=== PATIENT | female | born 1935 | race Hispanic/Latino ===

== ENCOUNTER 2017-06-20 12:29 | Inpatient (IN) | payer OTHER, BC ==
[2017-06-08 09:34] VITALS: BMI 22.8
[2017-06-20] MEDS: Levalbuterol 0.63 MG/3 ML Inhal Soln UD INH SCH (16:15)
[2017-06-20 16:59] VITALS: RESP 20
--- NOTE | 2017-06-20 20:02 | CP.PCM.HP ---
History of Present Illness - History of Present Illness History of Present Illness: 82 yo s/p R hip fx admitted to TCU Present on Admission - Present on Admission Any Indicators Present on Admission: No Past Patient History - Past Medical History & Family History Past Medical History?: Yes - Past Social History Smoking Status: Current Some Days Smoker - CARDIAC Hx Hypertension: Yes - PULMONARY Hx Respiratory Disorders: Yes Hx Chronic Obstructive Pulmonary Disease (COPD): Yes - NEUROLOGICAL Hx Neurological Disorder: No - HEENT Hx HEENT Problems: Yes Hx Glaucoma: Yes Hx Macular Degeneration: Yes - RENAL Hx Chronic Kidney Disease: No - ENDOCRINE/METABOLIC Hx Endocrine Disorders: No - HEMATOLOGICAL/ONCOLOGICAL Hx Blood Disorders: No Hx AIDS: No Hx Human Immunodeficiency Virus (HIV): No - INTEGUMENTARY Hx Dermatological Problems: No - MUSCULOSKELETAL/RHEUMATOLOGICAL Hx Falls: Yes - GASTROINTESTINAL Hx Gastrointestinal Disorders: No - GENITOURINARY/GYNECOLOGICAL Hx Genitourinary Disorders: No - PSYCHIATRIC Hx Psychophysiologic Disorder: No Hx Substance Use: No - SURGICAL HISTORY Hx Surgeries: Yes Hx Eye Surgery: Yes Other/Comment: skin graft to legs, left eye surgery s/p Rt THR - ANESTHESIA Hx Anesthesia: Yes Hx Anesthesia Reactions: No Meds Allergies/Adverse Reactions: Allergies Allergy/AdvReac Type Severity Reaction Status Date / Time Penicillins Allergy SWELLING Verified 06/20/17 14:25 Physical Exam - Respiratory Exam Respiratory Exam: NORMAL BREATHING PATTERN - Cardiovascular Exam Cardiovascular Exam: REGULAR RHYTHM - GI/Abdominal Exam GI & Abdominal Exam: Normal Bowel Sounds Results - Vital Signs Recent Vital Signs: Last Vital Signs Temp 97.1 F L 06/20/17 16:58 Pulse 78 06/20/17 16:58 Resp 20 06/20/17 16:58 BP 122/59 L 06/20/17 16:58 Pulse Ox 92 L 06/20/17 16:58 Assessment & Plan - Assessment and Plan (Free Text) Assessment: S/P R Hip THR POD #7 Ortho OOB PT TCU S/P NSTEMI HTN cadiomyopathy Cardiology Hypoxia?? transient COPD Pulmonary - Date & Time Date: 06/20/17 Time: 22:22
[2017-06-20] MEDS: Latanoprost 0.005% Opht SOUTION OD SCH (21:17)
[2017-06-21] MEDS: Levalbuterol 0.63 MG/3 ML Inhal Soln UD INH SCH ×4 (00:52→23:51)
--- NOTE | 2017-06-21 07:30 | CP.PCM.PN ---
Subjective - Date & Time of Evaluation Date of Evaluation: 06/21/17 Time of Evaluation: 07:30 Objective - Vital Signs/Intake and Output Vital Signs (last 24 hours): Temp Pulse Resp BP Pulse Ox 97.6 F 86 20 120/63 95 06/20/17 20:28 06/20/17 21:16 06/20/17 20:28 06/20/17 21:16 06/20/17 20:28 - Medications Medications: Current Medications Acetaminophen (Tylenol 325mg Tab) 650 mg PO Q6 PRN PRN Reason: Pain, moderate (4-7) Aspirin (Ecotrin) 81 mg PO DAILY [facility] Atorvastatin Calcium (Lipitor) 20 mg PO DAILY [facility] Carvedilol (Coreg) 6.25 mg PO Q12 [facility] Last Admin: 06/20/17 21:16 Dose: 6.25 mg Enoxaparin Sodium (Lovenox) 40 mg SC DAILY [facility] PRN Reason: Protocol Latanoprost (Xalatan Opht) 1 drop OD HS [facility] Last Admin: 06/20/17 21:17 Dose: 1 drop Levalbuterol HCl (Xopenex) 0.63 mg INH RQ8 [facility] Last Admin: 06/21/17 07:28 Dose: 0.63 mg Sennosides (Senokot Tab) 17.2 mg PO HS [facility] Last Admin: 06/20/17 21:16 Dose: 17.2 mg
[2017-06-21] MEDS: Enoxaparin 40 mg Syringe SC SCH (09:31)
--- NOTE | 2017-06-21 11:52 | CP.PCM.PN ---
Subjective - Date & Time of Evaluation Date of Evaluation: 06/21/17 Time of Evaluation: 11:50 - Subjective Subjective: Patient states she feels better today. Again encouraged participation in PT. Pain controlled, denies CP/SOB/dizzziness. Objective - Vital Signs/Intake and Output Vital Signs (last 24 hours): Temp Pulse Resp BP Pulse Ox 97.2 F L 73 20 106/54 L 98 06/21/17 08:10 06/21/17 09:31 06/21/17 08:10 06/21/17 09:31 06/21/17 08:10 - Medications Medications: Current Medications Acetaminophen (Tylenol 325mg Tab) 650 mg PO Q6 PRN PRN Reason: Pain, moderate (4-7) Aspirin (Ecotrin) 81 mg PO DAILY [facility] Last Admin: 06/21/17 09:31 Dose: 81 mg Atorvastatin Calcium (Lipitor) 20 mg PO DAILY [facility] Last Admin: 06/21/17 09:31 Dose: 20 mg Carvedilol (Coreg) 6.25 mg PO Q12 [facility] Last Admin: 06/21/17 09:31 Dose: 6.25 mg Enoxaparin Sodium (Lovenox) 40 mg SC DAILY [facility] PRN Reason: Protocol Last Admin: 06/21/17 09:31 Dose: 40 mg Latanoprost (Xalatan Opht) 1 drop OD HS [facility] Last Admin: 06/20/17 21:17 Dose: 1 drop Levalbuterol HCl (Xopenex) 0.63 mg INH RQ8 [facility] Last Admin: 06/21/17 07:28 Dose: 0.63 mg Sennosides (Senokot Tab) 17.2 mg PO HS [facility] Last Admin: 06/20/17 21:16 Dose: 17.2 mg - Extremities Exam Additional comments: Right hip and left hip wounds clean, dry, intact. +ROM ankle/toes, sensation intact, +DP/PT pulses, calves soft NT neg homans Assessment and Plan (1) Displaced fracture of right femoral neck Assessment & Plan: POD# 7 s/p right THR for fx -PT/OT -VTE proph -ortho stable -d/w Dr. Gil, agrees with above Status: Acute
--- NOTE | 2017-06-21 13:17 | CP.PCM.CON ---
History of Present Illness - History of Present Illness History of Present Illness: Dr Quintanilla PMR consultation on Yanira Gomez, born 1935, who has been admitted to the TCU following a right hip fracture and THR by Dr Gil who has documented FWB for Yanira. She typically ambulated with her rollator Review of Systems - Constitutional Constitutional: absent: Anorexia, Chills - EENT Eyes: absent: Discharge Ears: absent: Disequilibrium Nose/Mouth/Throat: absent: Nasal Congestion - Cardiovascular Cardiovascular: absent: Chest Pain - Respiratory Respiratory: absent: Dyspnea, Hemoptysis - Gastrointestinal Gastrointestinal: absent: Abdominal Pain, Belching - Integumentary Integumentary: Other (right hip incision). absent: Bleeding Lesions - Neurological Neurological: absent: Abnormal Movements Past Patient History - Past Medical History & Family History Past Medical History?: Yes - Past Social History Smoking Status: Current Some Days Smoker Drugs: Denies Home Situation {Lives}: Alone (ground floor) - CARDIAC Hx Hypertension: Yes - PULMONARY Hx Respiratory Disorders: Yes Hx Chronic Obstructive Pulmonary Disease (COPD): Yes - NEUROLOGICAL Hx Neurological Disorder: No - HEENT Hx HEENT Problems: Yes Hx Glaucoma: Yes Hx Macular Degeneration: Yes - RENAL Hx Chronic Kidney Disease: No - ENDOCRINE/METABOLIC Hx Endocrine Disorders: No - HEMATOLOGICAL/ONCOLOGICAL Hx Blood Disorders: No Hx AIDS: No Hx Human Immunodeficiency Virus (HIV): No - INTEGUMENTARY Hx Dermatological Problems: No - MUSCULOSKELETAL/RHEUMATOLOGICAL Hx Falls: Yes - GASTROINTESTINAL Hx Gastrointestinal Disorders: No - GENITOURINARY/GYNECOLOGICAL Hx Genitourinary Disorders: No - PSYCHIATRIC Hx Psychophysiologic Disorder: No Hx Substance Use: No - SURGICAL HISTORY Hx Surgeries: Yes Hx Eye Surgery: Yes Other/Comment: skin graft to legs, left eye surgery s/p Rt THR - ANESTHESIA Hx Anesthesia: Yes Hx Anesthesia Reactions: No Meds Allergies/Adverse Reactions: Allergies Allergy/AdvReac Type Severity Reaction Status Date / Time Penicillins Allergy SWELLING Verified 06/20/17 14:25 - Medications Medications: Current Medications Acetaminophen (Tylenol 325mg Tab) 650 mg PO Q6 PRN PRN Reason: Pain, moderate (4-7) Aspirin (Ecotrin) 81 mg PO DAILY [facility] Last Admin: 06/21/17 09:31 Dose: 81 mg Atorvastatin Calcium (Lipitor) 20 mg PO DAILY [facility] Last Admin: 06/21/17 09:31 Dose: 20 mg Carvedilol (Coreg) 6.25 mg PO Q12 [facility] Last Admin: 06/21/17 09:31 Dose: 6.25 mg Enoxaparin Sodium (Lovenox) 40 mg SC DAILY [facility] PRN Reason: Protocol Last Admin: 06/21/17 09:31 Dose: 40 mg Latanoprost (Xalatan Opht) 1 drop OD HS [facility] Last Admin: 06/20/17 21:17 Dose: 1 drop Levalbuterol HCl (Xopenex) 0.63 mg INH RQ8 [facility] Last Admin: 06/21/17 07:28 Dose: 0.63 mg Sennosides (Senokot Tab) 17.2 mg PO HS [facility] Last Admin: 06/20/17 21:16 Dose: 17.2 mg Physical Exam - Constitutional Appears: Non-toxic - Head Exam Head Exam: ATRAUMATIC, NORMAL INSPECTION, NORMOCEPHALIC (poor dentation) - Eye Exam Eye Exam: EOMI - ENT Exam ENT Exam: Mucous Membranes Moist - Respiratory Exam Respiratory Exam: NORMAL BREATHING PATTERN - Cardiovascular Exam Cardiovascular Exam: REGULAR RHYTHM - GI/Abdominal Exam GI & Abdominal Exam: Normal Bowel Sounds - Extremities Exam Extremities exam: Positive for: calf tenderness (right side with some swelling. Incision CDI) - Neurological Exam Neurological exam: Alert, CN II-XII Intact, Oriented x3 - Psychiatric Exam Psychiatric exam: Normal Affect, Normal Mood Results - Vital Signs Recent Vital Signs: Last Vital Signs Temp 97.2 F L 06/21/17 08:10 Pulse 73 06/21/17 09:31 Resp 20 06/21/17 08:10 BP 106/54 L 06/21/17 09:31 Pulse Ox 98 06/21/17 08:10 Assessment & Plan - Assessment and Plan (Free Text) Assessment: right THR PT/OT to continue to help increase functional independence Pain: controlled Vascular: some right calf swelling and mild tenderness will get a doppler GI: No evidence of constipation or diarrhea Patient continues to be an excellent TCU rehabilitation candidate and will have continued focused PT, OT and recreational therapy to help facilitate a safe and appropriate d/c plan
--- NOTE | 2017-06-21 13:49 | CP.PCM.CON ---
History of Present Illness - History of Present Illness History of Present Illness: THE PATIENT IS AN 82 YEAR OLD FEMALE ADMITTED [facility] FOLLOWING A FALL WITH A RIGHT HIP FRACTURE THAT WAS SURGICALLY REPAIRED ONE WEEK AGO. 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 SHE HAD ONLY MILDLY ELEVATED TROPONINS ON HER [facility] ADMISSION 10 DAYS AGO THAT I BELIEVE WERE MOST PROBABLY FROM A LOW FLUID STATUS WITH HEMOCONCENTRATION AND NOT FROM CARDIAC INJURY. SHE IS CHEST PAIN FREE AND COMFORTABLE AT THE PRESENT TIME. Past Patient History - Past Medical History & Family History Past Medical History?: Yes - Past Social History Smoking Status: Current Some Days Smoker Drugs: Denies Home Situation {Lives}: Alone (ground floor) - CARDIAC Hx Hypertension: Yes - PULMONARY Hx Respiratory Disorders: Yes Hx Chronic Obstructive Pulmonary Disease (COPD): Yes - NEUROLOGICAL Hx Neurological Disorder: No - HEENT Hx HEENT Problems: Yes Hx Glaucoma: Yes Hx Macular Degeneration: Yes - RENAL Hx Chronic Kidney Disease: No - ENDOCRINE/METABOLIC Hx Endocrine Disorders: No - HEMATOLOGICAL/ONCOLOGICAL Hx Blood Disorders: No Hx AIDS: No Hx Human Immunodeficiency Virus (HIV): No - INTEGUMENTARY Hx Dermatological Problems: No - MUSCULOSKELETAL/RHEUMATOLOGICAL Hx Falls: Yes - GASTROINTESTINAL Hx Gastrointestinal Disorders: No - GENITOURINARY/GYNECOLOGICAL Hx Genitourinary Disorders: No - PSYCHIATRIC Hx Psychophysiologic Disorder: No Hx Substance Use: No - SURGICAL HISTORY Hx Surgeries: Yes Hx Eye Surgery: Yes Other/Comment: skin graft to legs, left eye surgery s/p Rt THR - ANESTHESIA Hx Anesthesia: Yes Hx Anesthesia Reactions: No Meds Allergies/Adverse Reactions: Allergies Allergy/AdvReac Type Severity Reaction Status Date / Time Penicillins Allergy SWELLING Verified 06/20/17 14:25 - Medications Medications: Current Medications Acetaminophen (Tylenol 325mg Tab) 650 mg PO Q6 PRN PRN Reason: Pain, moderate (4-7) Aspirin (Ecotrin) 81 mg PO DAILY [facility] Last Admin: 06/21/17 09:31 Dose: 81 mg Atorvastatin Calcium (Lipitor) 20 mg PO DAILY [facility] Last Admin: 06/21/17 09:31 Dose: 20 mg Carvedilol (Coreg) 6.25 mg PO Q12 [facility] Last Admin: 06/21/17 09:31 Dose: 6.25 mg Enoxaparin Sodium (Lovenox) 40 mg SC DAILY [facility] PRN Reason: Protocol Last Admin: 06/21/17 09:31 Dose: 40 mg Latanoprost (Xalatan Opht) 1 drop OD HS [facility] Last Admin: 06/20/17 21:17 Dose: 1 drop Levalbuterol HCl (Xopenex) 0.63 mg INH RQ8 [facility] Last Admin: 06/21/17 07:28 Dose: 0.63 mg Sennosides (Senokot Tab) 17.2 mg PO HS [facility] Last Admin: 06/20/17 21:16 Dose: 17.2 mg Physical Exam - Respiratory Exam Respiratory Exam: Clear to Auscultation Bilateral - Cardiovascular Exam Cardiovascular Exam: REGULAR RHYTHM, +S1, +S2 Results - Vital Signs Recent Vital Signs: Last Vital Signs Temp 97.2 F L 06/21/17 08:10 Pulse 73 06/21/17 09:31 Resp 20 06/21/17 08:10 BP 106/54 L 06/21/17 09:31 Pulse Ox 98 06/21/17 08:10 - Labs Result Diagrams: 06/22/17 05:15 06/22/17 05:15 Assessment & Plan - Assessment and Plan (Free Text) Assessment: RIGHT HIP FRACTURE WITH SURGICAL REPAIR HYPERTENSION CARDIOMYOPATHY COPD Plan: CONTINUE ASPIRIN, CARVEDILOL, ATORVASTATIN AND LOVENOX
--- NOTE | 2017-06-21 18:30 | CP.PCM.PN ---
Subjective - Date & Time of Evaluation Date of Evaluation: 06/21/17 Time of Evaluation: 22:22 - Subjective Subjective: Refusing to do PT??? Objective - Vital Signs/Intake and Output Vital Signs (last 24 hours): Temp Pulse Resp BP Pulse Ox 97.0 F L 79 20 117/63 98 06/21/17 16:45 06/21/17 16:45 06/21/17 16:45 06/21/17 16:45 06/21/17 16:45 - Medications Medications: Current Medications Acetaminophen (Tylenol 325mg Tab) 650 mg PO Q6 PRN PRN Reason: Pain, moderate (4-7) Aspirin (Ecotrin) 81 mg PO DAILY [facility] Last Admin: 06/21/17 09:31 Dose: 81 mg Atorvastatin Calcium (Lipitor) 20 mg PO DAILY [facility] Last Admin: 06/21/17 09:31 Dose: 20 mg Carvedilol (Coreg) 6.25 mg PO Q12 [facility] Last Admin: 06/21/17 09:31 Dose: 6.25 mg Enoxaparin Sodium (Lovenox) 40 mg SC DAILY [facility] PRN Reason: Protocol Last Admin: 06/21/17 09:31 Dose: 40 mg Latanoprost (Xalatan Opht) 1 drop OD HS [facility] Last Admin: 06/20/17 21:17 Dose: 1 drop Levalbuterol HCl (Xopenex) 0.63 mg INH RQ8 [facility] Last Admin: 06/21/17 15:30 Dose: 0.63 mg Sennosides (Senokot Tab) 17.2 mg PO HS [facility] Last Admin: 06/20/17 21:16 Dose: 17.2 mg - Respiratory Exam Respiratory Exam: NORMAL BREATHING PATTERN - Cardiovascular Exam Cardiovascular Exam: REGULAR RHYTHM - GI/Abdominal Exam GI & Abdominal Exam: Normal Bowel Sounds Assessment and Plan - Assessment and Plan (Free Text) Assessment: S/P R Hip THR POD #8 Ortho OOB refusing PT?? TCU S/P NSTEMI HTN cadiomyopathy Cardiology Hypoxia?? transient COPD Pulmonary
[2017-06-21] MEDS: Latanoprost 0.005% Opht SOUTION OD SCH (21:42)
[2017-06-22 06:39] LABS: HEMATOCRIT 27.4 % (34.0-47.0); MEAN CELL VOLUME 99.4 fl (81.0-99.0); MEAN CORPUSCULAR HGB CONC 33.2 g/dL (33.0-37.0); RED CELL DISTRIBUTION WIDTH 13.9 % (11.5-14.5); WHITE BLOOD COUNT 5.9 K/uL (4.8-10.8)
[2017-06-22 07:41] LABS: ALKALINE PHOSPHATASE 60 U/L (38-126); ALT/SGPT 35 U/L (9-52); AST/SGOT 28 U/L (14-36); BILIRUBIN,TOTAL 1.4 mg/dl (0.2-1.3); BLOOD UREA NITROGEN 29 mg/dl (7-17); CARBON DIOXIDE 32 mmol/L (22-30); CHLORIDE 102 mmol/L (98-107); GFR AFRICAN-AMERICAN > 60; GLUCOSE,RANDOM 93 mg/dL (65-105); POTASSIUM 4.4 MMOL/L (3.6-5.0); SODIUM 140 mmol/l (132-148); TOTAL PROTEIN 4.7 G/DL (6.3-8.2)
[2017-06-22] MEDS: Levalbuterol 0.63 MG/3 ML Inhal Soln UD INH SCH ×2 (07:55→15:21)
[2017-06-22] MEDS: Enoxaparin 40 mg Syringe SC SCH (09:09)
--- NOTE | 2017-06-22 13:21 | CP.PCM.PN ---
Subjective - Date & Time of Evaluation Date of Evaluation: 06/22/17 Time of Evaluation: 13:20 - Subjective Subjective: The patient is an 82-year-old female known to me from this hospitalization on the acute medical floor. She had fallen and sustained a hip fracture which resulted in a delayed repair/replacement. She had an episode of hypoxemia initially on admission and has a vague history of COPD. She is a former cigarette smoker who was also raised in a smoking household as a child. Both her parents were smokers and her father did have COPD. She denied any prior respiratory/pulmonary illness but CT scan of the lungs done on presentation did show characteristics consistent with emphysema. On examination her breath sounds were present bilaterally and equally diminished. No audible wheezing or bronchial breathing was heard and rare dry rales are heard in dependent lung zones posteriorly. Heart sounds remain distant and the rhythm is regular. She appears to be stable from a pulmonary standpoint at this juncture. Continue with the current aerosol therapy regimen. Objective - Vital Signs/Intake and Output Vital Signs (last 24 hours): Temp Pulse Resp BP Pulse Ox 96.4 F L 77 20 110/61 94 L 06/22/17 08:00 06/22/17 09:09 06/22/17 08:00 06/22/17 09:09 06/22/17 08:00 - Medications Medications: Current Medications Acetaminophen (Tylenol 325mg Tab) 650 mg PO Q6 PRN PRN Reason: Pain, moderate (4-7) Last Admin: 06/21/17 20:20 Dose: 650 mg Aspirin (Ecotrin) 81 mg PO DAILY [facility] Last Admin: 06/22/17 09:08 Dose: 81 mg Atorvastatin Calcium (Lipitor) 20 mg PO DAILY [facility] Last Admin: 06/22/17 09:09 Dose: 20 mg Carvedilol (Coreg) 6.25 mg PO Q12 [facility] Last Admin: 06/22/17 09:09 Dose: 6.25 mg Enoxaparin Sodium (Lovenox) 40 mg SC DAILY [facility] PRN Reason: Protocol Last Admin: 06/22/17 09:09 Dose: 40 mg Latanoprost (Xalatan Opht) 1 drop OD HS [facility] Last Admin: 06/21/17 21:42 Dose: 1 drop Levalbuterol HCl (Xopenex) 0.63 mg INH RQ8 [facility] Last Admin: 06/22/17 07:55 Dose: 0.63 mg Sennosides (Senokot Tab) 17.2 mg PO HS [facility] Last Admin: 06/21/17 21:45 Dose: Not Given - Labs Labs: 06/22/17 05:15 06/22/17 05:15
--- NOTE | 2017-06-22 20:14 | CP.PCM.PN ---
Subjective - Date & Time of Evaluation Date of Evaluation: 06/22/17 Time of Evaluation: 22:22 - Subjective Subjective: PT today Objective - Vital Signs/Intake and Output Vital Signs (last 24 hours): Temp Pulse Resp BP Pulse Ox 96.8 F L 82 20 119/58 L 92 L 06/22/17 19:41 06/22/17 19:41 06/22/17 19:41 06/22/17 19:41 06/22/17 19:41 - Medications Medications: Current Medications Acetaminophen (Tylenol 325mg Tab) 650 mg PO Q4 PRN PRN Reason: Pain, moderate (4-7) Aspirin (Ecotrin) 81 mg PO DAILY [facility] Last Admin: 06/22/17 09:08 Dose: 81 mg Atorvastatin Calcium (Lipitor) 20 mg PO DAILY [facility] Last Admin: 06/22/17 09:09 Dose: 20 mg Carvedilol (Coreg) 6.25 mg PO Q12 [facility] Last Admin: 06/22/17 09:09 Dose: 6.25 mg Enoxaparin Sodium (Lovenox) 40 mg SC DAILY [facility] PRN Reason: Protocol Last Admin: 06/22/17 09:09 Dose: 40 mg Latanoprost (Xalatan Opht) 1 drop OD HS [facility] Last Admin: 06/21/17 21:42 Dose: 1 drop Levalbuterol HCl (Xopenex) 0.63 mg INH RQ8 [facility] Last Admin: 06/22/17 15:21 Dose: 0.63 mg Magnesium Hydroxide (Milk Of Magnesia) 30 ml PO DAILY [facility] Sennosides (Senokot Tab) 17.2 mg PO HS [facility] Last Admin: 06/21/17 21:45 Dose: Not Given - Labs Labs: 06/22/17 05:15 06/22/17 05:15 - Respiratory Exam Respiratory Exam: NORMAL BREATHING PATTERN - Cardiovascular Exam Cardiovascular Exam: REGULAR RHYTHM - GI/Abdominal Exam GI & Abdominal Exam: Normal Bowel Sounds Assessment and Plan - Assessment and Plan (Free Text) Assessment: S/P R Hip THR POD #9 Ortho OOB PT TCU S/P NSTEMI HTN cadiomyopathy Cardiology Hypoxia?? transient COPD Pulmonary
[2017-06-22] MEDS: Latanoprost 0.005% Opht SOUTION OD SCH ×2 (20:58→21:01)
[2017-06-23] MEDS: Levalbuterol 0.63 MG/3 ML Inhal Soln UD INH SCH ×3 (00:07→15:07)
[2017-06-23] MEDS: Magnesium Hydroxide Susp 30 ml UD PO SCH (09:14)
[2017-06-23] MEDS: Enoxaparin 40 mg Syringe SC SCH (09:14)
--- NOTE | 2017-06-23 09:34 | CP.PCM.PN ---
Subjective - Date & Time of Evaluation Date of Evaluation: 06/23/17 Time of Evaluation: 08:15 - Subjective Subjective: NO NEW COMPLAINTS Objective - Vital Signs/Intake and Output Vital Signs (last 24 hours): Temp Pulse Resp BP Pulse Ox 95.7 F L 72 20 109/54 L 100 06/23/17 08:11 06/23/17 09:14 06/23/17 08:11 06/23/17 09:14 06/23/17 08:11 - Medications Medications: Current Medications Acetaminophen (Tylenol 325mg Tab) 650 mg PO Q4 PRN PRN Reason: Pain, moderate (4-7) Last Admin: 06/22/17 20:50 Dose: 650 mg Aspirin (Ecotrin) 81 mg PO DAILY [facility] Last Admin: 06/23/17 09:14 Dose: 81 mg Atorvastatin Calcium (Lipitor) 20 mg PO DAILY [facility] Last Admin: 06/23/17 09:15 Dose: 20 mg Carvedilol (Coreg) 6.25 mg PO Q12 [facility] Last Admin: 06/23/17 09:14 Dose: 6.25 mg Enoxaparin Sodium (Lovenox) 40 mg SC DAILY [facility] PRN Reason: Protocol Last Admin: 06/23/17 09:14 Dose: 40 mg Latanoprost (Xalatan Opht) 1 drop OD HS [facility] Last Admin: 06/22/17 21:01 Dose: 1 drop Levalbuterol HCl (Xopenex) 0.63 mg INH RQ8 [facility] Last Admin: 06/23/17 07:08 Dose: 0.63 mg Magnesium Hydroxide (Milk Of Magnesia) 30 ml PO DAILY [facility] Last Admin: 06/23/17 09:14 Dose: 30 ml Sennosides (Senokot Tab) 17.2 mg PO HS [facility] Last Admin: 06/22/17 21:00 Dose: Not Given - Labs Labs: 06/22/17 05:15 06/22/17 05:15 - Respiratory Exam Respiratory Exam: Clear to Ausculation Bilateral - Cardiovascular Exam Cardiovascular Exam: REGULAR RHYTHM, +S1, +S2 Assessment and Plan - Assessment and Plan (Free Text) Assessment: S/P RIGHT THR FOR A FALL WITH FRACTURE HYPERTENSION HYPERLIPIDEMIA Plan: CONTINUE CARVEDILOL, ASPIRIN, ATORVASTATIN AND LOVENOX CONTINUE PHYSICAL THERAPY
--- NOTE | 2017-06-23 12:12 | CP.PCM.PN ---
Subjective - Date & Time of Evaluation Date of Evaluation: 06/23/17 Time of Evaluation: 12:12 - Subjective Subjective: The patient was seen on rounds in the transitional care unit. She is lying in bed and she appears to be comfortable. She offers no specific complaints. She has not been participating in physical therapy because of fatigue. Physical examination is benign. Breath sounds are present bilaterally without any audible wheezing or rales. Occasional dependent rhonchi. No cyanosis. She remains afebrile and her other vital signs are stable as well. Objective - Vital Signs/Intake and Output Vital Signs (last 24 hours): Temp Pulse Resp BP Pulse Ox 95.7 F L 72 20 109/54 L 100 06/23/17 10:00 06/23/17 10:00 06/23/17 10:00 06/23/17 10:00 06/23/17 10:00 - Medications Medications: Current Medications Acetaminophen (Tylenol 325mg Tab) 650 mg PO Q4 PRN PRN Reason: Pain, moderate (4-7) Last Admin: 06/22/17 20:50 Dose: 650 mg Aspirin (Ecotrin) 81 mg PO DAILY [facility] Last Admin: 06/23/17 09:14 Dose: 81 mg Atorvastatin Calcium (Lipitor) 20 mg PO DAILY [facility] Last Admin: 06/23/17 09:15 Dose: 20 mg Carvedilol (Coreg) 6.25 mg PO Q12 [facility] Last Admin: 06/23/17 09:14 Dose: 6.25 mg Enoxaparin Sodium (Lovenox) 40 mg SC DAILY [facility] PRN Reason: Protocol Last Admin: 06/23/17 09:14 Dose: 40 mg Latanoprost (Xalatan Opht) 1 drop OD HS [facility] Last Admin: 06/22/17 21:01 Dose: 1 drop Levalbuterol HCl (Xopenex) 0.63 mg INH RQ8 [facility] Last Admin: 06/23/17 07:08 Dose: 0.63 mg Magnesium Hydroxide (Milk Of Magnesia) 30 ml PO DAILY [facility] Last Admin: 06/23/17 09:14 Dose: 30 ml Sennosides (Senokot Tab) 17.2 mg PO HS [facility] Last Admin: 06/22/17 21:00 Dose: Not Given - Labs Labs: 06/22/17 05:15 06/22/17 05:15
--- NOTE | 2017-06-23 15:32 | CP.PCM.PN ---
Subjective - Date & Time of Evaluation Date of Evaluation: 06/23/17 Time of Evaluation: 15:30 - Subjective Subjective: Patient seen in room She again did not participate in therapies I informed her that after three days there can be a discharge home if she is not doing anything She did not really get it, but I reiterated this to her firmly as she has been putting off PT/OT after 30 minutes of staff trying to coax her and the day prior they came 5 times the thought of going home was not good to her so hopefully she will respond discussed with staff Objective - Vital Signs/Intake and Output Vital Signs (last 24 hours): Temp Pulse Resp BP Pulse Ox 95.7 F L 72 20 109/54 L 100 06/23/17 10:00 06/23/17 10:00 06/23/17 10:00 06/23/17 10:00 06/23/17 10:00 - Medications Medications: Current Medications Acetaminophen (Tylenol 325mg Tab) 650 mg PO Q4 PRN PRN Reason: Pain, moderate (4-7) Last Admin: 06/22/17 20:50 Dose: 650 mg Aspirin (Ecotrin) 81 mg PO DAILY [facility] Last Admin: 06/23/17 09:14 Dose: 81 mg Atorvastatin Calcium (Lipitor) 20 mg PO DAILY [facility] Last Admin: 06/23/17 09:15 Dose: 20 mg Carvedilol (Coreg) 6.25 mg PO Q12 [facility] Last Admin: 06/23/17 09:14 Dose: 6.25 mg Enoxaparin Sodium (Lovenox) 40 mg SC DAILY [facility] PRN Reason: Protocol Last Admin: 06/23/17 09:14 Dose: 40 mg Latanoprost (Xalatan Opht) 1 drop OD HS [facility] Last Admin: 06/22/17 21:01 Dose: 1 drop Levalbuterol HCl (Xopenex) 0.63 mg INH RQ8 [facility] Last Admin: 06/23/17 15:07 Dose: 0.63 mg Magnesium Hydroxide (Milk Of Magnesia) 30 ml PO DAILY [facility] Last Admin: 06/23/17 09:14 Dose: 30 ml Sennosides (Senokot Tab) 17.2 mg PO HS [facility] Last Admin: 06/22/17 21:00 Dose: Not Given - Labs Labs: 06/22/17 05:15 06/22/17 05:15
--- NOTE | 2017-06-23 15:33 | CP.PCM.CON ---
History of Present Illness - History of Present Illness History of Present Illness: PT WITHOUT PREVIOUS FORMAL DIAGNOSIS OR TREATMENT, PT SUSTAINED A HIP FRACTURE AND ADMITTED FOR C ARPAN REQUESTED PT HAS EPISODES SAWYER SHE IS NOT COOPERATIVE WITH THERAPY PT REPORTED THAT AT TIMES SHE FEELS DOWN AND UNABLE TO COOPERATE BECAUSE OF HER CURRENT MEDICAL PROBLEMS INCLUDING STOOL INCONTENENCE PT DENIED FEELING DEPRESSED DENIED CHANGES IN SLEEP OR APPETITE DENIED MANIC OR PSYCHOTIC SYMPTOMS DENIED S/HI Past Patient History - Past Medical History & Family History Past Medical History?: Yes - Past Social History Smoking Status: Current Some Days Smoker Drugs: Denies Home Situation {Lives}: Alone (ground floor) - CARDIAC Hx Hypertension: Yes - PULMONARY Hx Respiratory Disorders: Yes Hx Chronic Obstructive Pulmonary Disease (COPD): Yes - NEUROLOGICAL Hx Neurological Disorder: No - HEENT Hx HEENT Problems: Yes Hx Glaucoma: Yes Hx Macular Degeneration: Yes - RENAL Hx Chronic Kidney Disease: No - ENDOCRINE/METABOLIC Hx Endocrine Disorders: No - HEMATOLOGICAL/ONCOLOGICAL Hx Blood Disorders: No Hx AIDS: No Hx Human Immunodeficiency Virus (HIV): No - INTEGUMENTARY Hx Dermatological Problems: No - MUSCULOSKELETAL/RHEUMATOLOGICAL Hx Falls: Yes - GASTROINTESTINAL Hx Gastrointestinal Disorders: No - GENITOURINARY/GYNECOLOGICAL Hx Genitourinary Disorders: No - PSYCHIATRIC Hx Psychophysiologic Disorder: No Hx Substance Use: No - SURGICAL HISTORY Hx Surgeries: Yes Hx Eye Surgery: Yes Other/Comment: skin graft to legs, left eye surgery s/p Rt THR - ANESTHESIA Hx Anesthesia: Yes Hx Anesthesia Reactions: No Meds Allergies/Adverse Reactions: Allergies Allergy/AdvReac Type Severity Reaction Status Date / Time Penicillins Allergy SWELLING Verified 06/20/17 14:25 - Medications Medications: Current Medications Acetaminophen (Tylenol 325mg Tab) 650 mg PO Q4 PRN PRN Reason: Pain, moderate (4-7) Last Admin: 06/22/17 20:50 Dose: 650 mg Aspirin (Ecotrin) 81 mg PO DAILY [facility] Last Admin: 06/23/17 09:14 Dose: 81 mg Atorvastatin Calcium (Lipitor) 20 mg PO DAILY [facility] Last Admin: 06/23/17 09:15 Dose: 20 mg Carvedilol (Coreg) 6.25 mg PO Q12 [facility] Last Admin: 06/23/17 09:14 Dose: 6.25 mg Enoxaparin Sodium (Lovenox) 40 mg SC DAILY [facility] PRN Reason: Protocol Last Admin: 06/23/17 09:14 Dose: 40 mg Latanoprost (Xalatan Opht) 1 drop OD HS [facility] Last Admin: 06/22/17 21:01 Dose: 1 drop Levalbuterol HCl (Xopenex) 0.63 mg INH RQ8 [facility] Last Admin: 06/23/17 15:07 Dose: 0.63 mg Magnesium Hydroxide (Milk Of Magnesia) 30 ml PO DAILY [facility] Last Admin: 06/23/17 09:14 Dose: 30 ml Sennosides (Senokot Tab) 17.2 mg PO HS [facility] Last Admin: 06/22/17 21:00 Dose: Not Given Physical Exam - Psychiatric Exam Additional comments: PT ON EVALUATION CALM COOPERATIVE [employer] E[employer] CONTACT SPEECH SOFT AND SLOW MOOD REPORTED FINE DENIED ANY CURRENT SUICIDAL OR HOMICIDAL IDEATIONS DENIED PERCEPTUAL DISTURBANCES, NON ELICITED THOUGHT FORM COHERENT ALERT AWAKE ORIENTED TO PERSON AND PLACE FAIR INSIGHT AND JUDGMENT Results - Vital Signs Recent Vital Signs: Last Vital Signs Temp 95.7 F L 06/23/17 10:00 Pulse 72 06/23/17 10:00 Resp 20 06/23/17 10:00 BP 109/54 L 06/23/17 10:00 Pulse Ox 100 06/23/17 10:00 - Labs Result Diagrams: 06/22/17 05:15 06/22/17 05:15 Assessment & Plan - Assessment and Plan (Free Text) Assessment: ADJUSTMENT DISORDER UNSPECIFIED Plan: SUPPORTIVE THERAPY - Date & Time Date: 06/23/17 Time: 15:33
--- NOTE | 2017-06-23 17:49 | CP.PCM.PN ---
Subjective - Date & Time of Evaluation Date of Evaluation: 06/23/17 Time of Evaluation: 22:22 - Subjective Subjective: Refused PT again!!! Objective - Vital Signs/Intake and Output Vital Signs (last 24 hours): Temp Pulse Resp BP Pulse Ox 97 F L 80 20 102/56 L 100 06/23/17 15:51 06/23/17 15:51 06/23/17 15:51 06/23/17 15:51 06/23/17 15:51 - Medications Medications: Current Medications Acetaminophen (Tylenol 325mg Tab) 650 mg PO Q4 PRN PRN Reason: Pain, moderate (4-7) Last Admin: 06/22/17 20:50 Dose: 650 mg Aspirin (Ecotrin) 81 mg PO DAILY [facility] Last Admin: 06/23/17 09:14 Dose: 81 mg Atorvastatin Calcium (Lipitor) 20 mg PO DAILY [facility] Last Admin: 06/23/17 09:15 Dose: 20 mg Carvedilol (Coreg) 6.25 mg PO Q12 [facility] Last Admin: 06/23/17 09:14 Dose: 6.25 mg Enoxaparin Sodium (Lovenox) 40 mg SC DAILY [facility] PRN Reason: Protocol Last Admin: 06/23/17 09:14 Dose: 40 mg Latanoprost (Xalatan Opht) 1 drop OD HS [facility] Last Admin: 06/22/17 21:01 Dose: 1 drop Levalbuterol HCl (Xopenex) 0.63 mg INH RQ8 [facility] Last Admin: 06/23/17 15:07 Dose: 0.63 mg Magnesium Hydroxide (Milk Of Magnesia) 30 ml PO DAILY [facility] Last Admin: 06/23/17 09:14 Dose: 30 ml Sennosides (Senokot Tab) 17.2 mg PO HS [facility] Last Admin: 06/22/17 21:00 Dose: Not Given - Labs Labs: 06/22/17 05:15 06/22/17 05:15 - Respiratory Exam Respiratory Exam: NORMAL BREATHING PATTERN - Cardiovascular Exam Cardiovascular Exam: REGULAR RHYTHM - GI/Abdominal Exam GI & Abdominal Exam: Normal Bowel Sounds Assessment and Plan - Assessment and Plan (Free Text) Assessment: Adj rxn Refusing therapy?? S/P R Hip THR POD #9 Ortho OOB PT TCU S/P NSTEMI HTN cadiomyopathy Cardiology Hypoxia?? transient COPD Pulmonary
[2017-06-23] MEDS: Latanoprost 0.005% Opht SOUTION OD SCH (22:27)
[2017-06-24] MEDS: Levalbuterol 0.63 MG/3 ML Inhal Soln UD INH SCH ×4 (01:36→23:19)
[2017-06-24] MEDS: Enoxaparin 40 mg Syringe SC SCH (09:27)
[2017-06-24] MEDS: Magnesium Hydroxide Susp 30 ml UD PO SCH (09:27)
--- NOTE | 2017-06-24 10:32 | CP.PCM.PN ---
Subjective - Date & Time of Evaluation Date of Evaluation: 06/24/17 Time of Evaluation: 10:15 - Subjective Subjective: S- s/p R THR for fx pt states shes waiitng for physio/ situation discussed with nurse Objective - Vital Signs/Intake and Output Vital Signs (last 24 hours): Temp Pulse Resp BP Pulse Ox 97.9 F 74 20 110/58 L 100 06/24/17 08:00 06/24/17 09:30 06/24/17 08:00 06/24/17 09:30 06/24/17 08:00 - Medications Medications: Current Medications Acetaminophen (Tylenol 325mg Tab) 650 mg PO Q4 PRN PRN Reason: Pain, moderate (4-7) Last Admin: 06/22/17 20:50 Dose: 650 mg Aspirin (Ecotrin) 81 mg PO DAILY [facility] Last Admin: 06/24/17 09:27 Dose: 81 mg Atorvastatin Calcium (Lipitor) 20 mg PO DAILY [facility] Last Admin: 06/24/17 09:27 Dose: 20 mg Carvedilol (Coreg) 6.25 mg PO Q12 [facility] Last Admin: 06/24/17 09:30 Dose: 6.25 mg Enoxaparin Sodium (Lovenox) 40 mg SC DAILY [facility] PRN Reason: Protocol Last Admin: 06/24/17 09:27 Dose: 40 mg Latanoprost (Xalatan Opht) 1 drop OD HS [facility] Last Admin: 06/23/17 22:27 Dose: 1 drop Levalbuterol HCl (Xopenex) 0.63 mg INH RQ8 [facility] Last Admin: 06/24/17 08:48 Dose: 0.63 mg Magnesium Hydroxide (Milk Of Magnesia) 30 ml PO DAILY [facility] Last Admin: 06/24/17 09:27 Dose: 30 ml Sennosides (Senokot Tab) 17.2 mg PO HS [facility] Last Admin: 06/23/17 22:27 Dose: 17.2 mg - Labs Labs: 06/22/17 05:15 06/22/17 05:15 - Skin Additional comments: Objective systemic wnl Musculoskekltal stance/gait- defrred R hip wound benign absolutely NO pain on ROM R hip Assessment and Plan - Assessment and Plan (Free Text) Assessment: A- s/p R THR P full weigth bearing situation discussed with nurse to provide physio today; response from nursing is only new pts get therapy on weekend
[2017-06-24] MEDS: Latanoprost 0.005% Opht SOUTION OD SCH (21:18)
--- NOTE | 2017-06-24 23:53 | CP.PCM.PN ---
Subjective - Date & Time of Evaluation Date of Evaluation: 06/24/17 Time of Evaluation: 22:22 - Subjective Subjective: Ortho note appreciated Objective - Vital Signs/Intake and Output Vital Signs (last 24 hours): Temp Pulse Resp BP Pulse Ox 97.0 F L 76 20 116/46 L 93 L 06/24/17 21:47 06/24/17 21:47 06/24/17 21:47 06/24/17 21:47 06/24/17 21:47 - Medications Medications: Current Medications Acetaminophen (Tylenol 325mg Tab) 650 mg PO Q4 PRN PRN Reason: Pain, moderate (4-7) Last Admin: 06/24/17 21:11 Dose: 650 mg Aspirin (Ecotrin) 81 mg PO DAILY [facility] Last Admin: 06/24/17 09:27 Dose: 81 mg Atorvastatin Calcium (Lipitor) 20 mg PO DAILY [facility] Last Admin: 06/24/17 09:27 Dose: 20 mg Carvedilol (Coreg) 6.25 mg PO Q12 [facility] Last Admin: 06/24/17 21:17 Dose: 6.25 mg Enoxaparin Sodium (Lovenox) 40 mg SC DAILY [facility] PRN Reason: Protocol Last Admin: 06/24/17 09:27 Dose: 40 mg Latanoprost (Xalatan Opht) 1 drop OD HS [facility] Last Admin: 06/24/17 21:18 Dose: 1 drop Levalbuterol HCl (Xopenex) 0.63 mg INH RQ8 [facility] Last Admin: 06/24/17 23:19 Dose: Not Given Magnesium Hydroxide (Milk Of Magnesia) 30 ml PO DAILY [facility] Last Admin: 06/24/17 09:27 Dose: 30 ml Sennosides (Senokot Tab) 17.2 mg PO HS [facility] Last Admin: 06/24/17 21:19 Dose: 17.2 mg - Labs Labs: 06/22/17 05:15 06/22/17 05:15 - Respiratory Exam Respiratory Exam: NORMAL BREATHING PATTERN - Cardiovascular Exam Cardiovascular Exam: REGULAR RHYTHM - GI/Abdominal Exam GI & Abdominal Exam: Normal Bowel Sounds Assessment and Plan - Assessment and Plan (Free Text) Assessment: S/P R Hip THR POD #9 Ortho OOB PT TCU S/P NSTEMI HTN cadiomyopathy Cardiology Hypoxia?? transient COPD Pulmonary
[2017-06-25] MEDS: Enoxaparin 40 mg Syringe SC SCH (11:26)
[2017-06-25] MEDS: Levalbuterol 0.63 MG/3 ML Inhal Soln UD INH SCH ×2 (15:58→23:43)
[2017-06-25] MEDS: Latanoprost 0.005% Opht SOUTION OD SCH (23:10)
[2017-06-26] MEDS: Levalbuterol 0.63 MG/3 ML Inhal Soln UD INH SCH ×2 (07:17→15:33)
[2017-06-26] MEDS: Enoxaparin 40 mg Syringe SC SCH (08:28)
--- NOTE | 2017-06-26 11:19 | CARD ---
APPROVED REPORT EKG Measurement Heart [id number] <Conclusion> Normal sinus rhythm Left axis deviation Left bundle branch block Abnormal ECG
--- NOTE | 2017-06-26 12:06 | CP.PCM.PN ---
Subjective - Date & Time of Evaluation Date of Evaluation: 06/26/17 Time of Evaluation: 11:30 - Subjective Subjective: NO CHEST PAIN NOW HAD CHEST PAIN LAST NIGHT BUT NO SOB, DIAPHORESIS, NAUSEA OR VOMITING Objective - Vital Signs/Intake and Output Vital Signs (last 24 hours): Temp Pulse Resp BP Pulse Ox 97.0 F L 73 20 110/55 L 99 06/26/17 09:01 06/26/17 09:01 06/26/17 09:01 06/26/17 09:01 06/26/17 09:01 - Medications Medications: Current Medications Acetaminophen (Tylenol 325mg Tab) 650 mg PO Q4 PRN PRN Reason: Pain, moderate (4-7) Last Admin: 06/25/17 22:59 Dose: 650 mg Aspirin (Ecotrin) 81 mg PO DAILY [facility] Last Admin: 06/26/17 08:28 Dose: 81 mg Atorvastatin Calcium (Lipitor) 20 mg PO DAILY [facility] Last Admin: 06/26/17 08:29 Dose: 20 mg Carvedilol (Coreg) 6.25 mg PO Q12 [facility] Last Admin: 06/26/17 08:28 Dose: 6.25 mg Latanoprost (Xalatan Opht) 1 drop OD HS [facility] Last Admin: 06/25/17 23:10 Dose: 1 drop Levalbuterol HCl (Xopenex) 0.63 mg INH RQ8 [facility] Last Admin: 06/26/17 07:17 Dose: 0.63 mg Sennosides (Senokot Tab) 17.2 mg PO HS [facility] Last Admin: 06/25/17 22:46 Dose: 17.2 mg - Labs Labs: 06/22/17 05:15 06/22/17 05:15 - Respiratory Exam Respiratory Exam: Clear to Ausculation Bilateral - Cardiovascular Exam Cardiovascular Exam: REGULAR RHYTHM, +S1, +S2 Additional comments: PALPATION OF LEFT LOWER RIBS TO THE LEFT OF THE STERNUM REPRODUCED THE CHEST PAIN - Extremities Exam Additional comments: NO LE EDEMA - Additional Findings Additional findings: EKG SHOWS SINUS RHYTHM, LBBB PSYCH CONSULT WITH ADJUSTMENT DISORDER Assessment and Plan - Assessment and Plan (Free Text) Assessment: S/P RIGHT HIP REPLACEMENT HYPERTENSION HYPERLIPIDEMIA CHEST WALL TENDERNESS Plan: CONTINUE CARVEDILOL, ASPIRIN AND ATORVASTATIN CONTINUE SUBACUTE REHAB
--- NOTE | 2017-06-26 16:59 | CP.PCM.PN ---
Subjective - Date & Time of Evaluation Date of Evaluation: 06/26/17 Time of Evaluation: 16:59 - Subjective Subjective: Patient seen in the room still refusing therapy I spoke with Dr Means and Cherry at length She is already here on day #6 and there is no chance that she will be able to be discharged home from this unit at this point even if participated in therapies. Seen by Psych, adjustment disorder Will need extended KELLY as she cannot take care of herself Objective - Vital Signs/Intake and Output Vital Signs (last 24 hours): Temp Pulse Resp BP Pulse Ox 96.8 F L 74 20 102/56 L 100 06/26/17 15:45 06/26/17 15:45 06/26/17 15:45 06/26/17 15:45 06/26/17 15:45 - Medications Medications: Current Medications Acetaminophen (Tylenol 325mg Tab) 650 mg PO Q4 PRN PRN Reason: Pain, moderate (4-7) Last Admin: 06/25/17 22:59 Dose: 650 mg Aspirin (Ecotrin) 81 mg PO DAILY [facility] Last Admin: 06/26/17 08:28 Dose: 81 mg Atorvastatin Calcium (Lipitor) 20 mg PO DAILY [facility] Last Admin: 06/26/17 08:29 Dose: 20 mg Carvedilol (Coreg) 6.25 mg PO Q12 [facility] Last Admin: 06/26/17 08:28 Dose: 6.25 mg Latanoprost (Xalatan Opht) 1 drop OD HS [facility] Last Admin: 06/25/17 23:10 Dose: 1 drop Levalbuterol HCl (Xopenex) 0.63 mg INH RQ8 [facility] Last Admin: 06/26/17 15:33 Dose: 0.63 mg Sennosides (Senokot Tab) 17.2 mg PO HS [facility] Last Admin: 06/25/17 22:46 Dose: 17.2 mg - Labs Labs: 06/22/17 05:15 06/22/17 05:15
--- NOTE | 2017-06-26 17:04 | CP.PCM.PN ---
Subjective - Date & Time of Evaluation Date of Evaluation: 06/26/17 Time of Evaluation: 22:22 - Subjective Subjective: Above noted D/W Dr Quintanilla and Nursing Objective - Vital Signs/Intake and Output Vital Signs (last 24 hours): Temp Pulse Resp BP Pulse Ox 96.8 F L 74 20 102/56 L 100 06/26/17 15:45 06/26/17 15:45 06/26/17 15:45 06/26/17 15:45 06/26/17 15:45 - Medications Medications: Current Medications Acetaminophen (Tylenol 325mg Tab) 650 mg PO Q4 PRN PRN Reason: Pain, moderate (4-7) Last Admin: 06/25/17 22:59 Dose: 650 mg Aspirin (Ecotrin) 81 mg PO DAILY [facility] Last Admin: 06/26/17 08:28 Dose: 81 mg Atorvastatin Calcium (Lipitor) 20 mg PO DAILY [facility] Last Admin: 06/26/17 08:29 Dose: 20 mg Carvedilol (Coreg) 6.25 mg PO Q12 [facility] Last Admin: 06/26/17 08:28 Dose: 6.25 mg Latanoprost (Xalatan Opht) 1 drop OD HS [facility] Last Admin: 06/25/17 23:10 Dose: 1 drop Levalbuterol HCl (Xopenex) 0.63 mg INH RQ8 [facility] Last Admin: 06/26/17 15:33 Dose: 0.63 mg Sennosides (Senokot Tab) 17.2 mg PO HS [facility] Last Admin: 06/25/17 22:46 Dose: 17.2 mg - Labs Labs: 06/22/17 05:15 06/22/17 05:15 - Respiratory Exam Respiratory Exam: NORMAL BREATHING PATTERN - Cardiovascular Exam Cardiovascular Exam: REGULAR RHYTHM - Rectal Exam Rectal Exam: NORMAL INSPECTION Assessment and Plan - Assessment and Plan (Free Text) Assessment: Adj Rxn refusing therapy?? Reconsult Psych S/P R Hip THR POD #9 Ortho OOB PT TCU S/P NSTEMI HTN cadiomyopathy Cardiology Hypoxia?? transient COPD Pulmonary
[2017-06-26] MEDS: Latanoprost 0.005% Opht SOUTION OD SCH (21:36)
[2017-06-27] MEDS: Levalbuterol 0.63 MG/3 ML Inhal Soln UD INH SCH ×3 (00:54→16:00)
[2017-06-27] MEDS ORDERED: Enoxaparin 40 mg Syringe SC STA (12:43)
--- NOTE | 2017-06-27 20:12 | CP.PCM.PN ---
Subjective - Date & Time of Evaluation Date of Evaluation: 06/27/17 Time of Evaluation: 22:22 - Subjective Subjective: Still refusing therapy Objective - Vital Signs/Intake and Output Vital Signs (last 24 hours): Temp Pulse Resp BP Pulse Ox 96.8 F L 81 20 105/50 L 92 L 06/27/17 19:36 06/27/17 19:36 06/27/17 19:36 06/27/17 19:36 06/27/17 19:36 - Medications Medications: Current Medications Acetaminophen (Tylenol 325mg Tab) 650 mg PO Q4 PRN PRN Reason: Pain, moderate (4-7) Last Admin: 06/25/17 22:59 Dose: 650 mg Aspirin (Ecotrin) 81 mg PO DAILY [facility] Last Admin: 06/27/17 08:22 Dose: 81 mg Atorvastatin Calcium (Lipitor) 20 mg PO DAILY [facility] Last Admin: 06/27/17 08:21 Dose: 20 mg Carvedilol (Coreg) 6.25 mg PO Q12 [facility] Last Admin: 06/27/17 08:21 Dose: 6.25 mg Enoxaparin Sodium (Lovenox) 40 mg SC DAILY [facility] PRN Reason: Protocol Latanoprost (Xalatan Opht) 1 drop OD HS [facility] Last Admin: 06/26/17 21:36 Dose: 1 drop Levalbuterol HCl (Xopenex) 0.63 mg INH RQ8 [facility] Last Admin: 06/27/17 16:00 Dose: 0.63 mg Sennosides (Senokot Tab) 17.2 mg PO HS [facility] Last Admin: 06/26/17 21:53 Dose: 17.2 mg - Labs Labs: 06/22/17 05:15 06/22/17 05:15 - Respiratory Exam Respiratory Exam: NORMAL BREATHING PATTERN - Cardiovascular Exam Cardiovascular Exam: REGULAR RHYTHM - GI/Abdominal Exam GI & Abdominal Exam: Normal Bowel Sounds Assessment and Plan - Assessment and Plan (Free Text) Assessment: Adj Rxn refusing therapy?? Reconsult Psych S/P R Hip THR POD #10 Ortho OOB PT TCU S/P NSTEMI HTN cadiomyopathy Cardiology Hypoxia?? transient COPD Pulmonary
[2017-06-27] MEDS: Latanoprost 0.005% Opht SOUTION OD SCH (21:45)
[2017-06-28] MEDS: Levalbuterol 0.63 MG/3 ML Inhal Soln UD INH SCH ×3 (00:10→15:17)
[2017-06-28] MEDS: Enoxaparin 40 mg Syringe SC SCH (08:25)
--- NOTE | 2017-06-28 15:00 | CP.PCM.PN ---
Subjective - Date & Time of Evaluation Date of Evaluation: 06/28/17 Time of Evaluation: 13:30 - Subjective Subjective: NO CHEST PAIN OR SOB Objective - Vital Signs/Intake and Output Vital Signs (last 24 hours): Temp Pulse Resp BP Pulse Ox 96.6 F L 76 20 106/56 L 93 L 06/28/17 08:00 06/28/17 08:25 06/28/17 08:00 06/28/17 08:25 06/28/17 08:00 - Medications Medications: Current Medications Acetaminophen (Tylenol 325mg Tab) 650 mg PO Q4 PRN PRN Reason: Pain, moderate (4-7) Last Admin: 06/25/17 22:59 Dose: 650 mg Aspirin (Ecotrin) 81 mg PO DAILY [facility] Last Admin: 06/28/17 08:25 Dose: 81 mg Atorvastatin Calcium (Lipitor) 20 mg PO DAILY@2100 [facility] Carvedilol (Coreg) 6.25 mg PO Q12 [facility] Last Admin: 06/28/17 08:25 Dose: 6.25 mg Enoxaparin Sodium (Lovenox) 40 mg SC DAILY [facility] PRN Reason: Protocol Last Admin: 06/28/17 08:25 Dose: 40 mg Latanoprost (Xalatan Opht) 1 drop OD HS [facility] Last Admin: 06/27/17 21:45 Dose: 1 drop Levalbuterol HCl (Xopenex) 0.63 mg INH RQ8 [facility] Last Admin: 06/28/17 07:44 Dose: 0.63 mg Sennosides (Senokot Tab) 17.2 mg PO HS [facility] Last Admin: 06/27/17 21:45 Dose: 17.2 mg - Labs Labs: 06/22/17 05:15 06/22/17 05:15 - Respiratory Exam Respiratory Exam: Clear to Ausculation Bilateral - Cardiovascular Exam Cardiovascular Exam: REGULAR RHYTHM, +S1, +S2 - Extremities Exam Extremities Exam: Normal Inspection Assessment and Plan - Assessment and Plan (Free Text) Assessment: S/P RIGHT THR HYPERTENSION HYPERLIPIDEMIA Plan: CONTINUE CARVEDILOL, ASPIRIN, ATORVASTATIN AND LOVENOX
--- NOTE | 2017-06-28 17:35 | CP.PCM.PN ---
Subjective - Date & Time of Evaluation Date of Evaluation: 06/28/17 Time of Evaluation: 22:22 - Subjective Subjective: Seen by Psych today no change in diagnosis Objective - Vital Signs/Intake and Output Vital Signs (last 24 hours): Temp Pulse Resp BP Pulse Ox 96.6 F L 76 20 106/56 L 93 L 06/28/17 08:00 06/28/17 08:25 06/28/17 08:00 06/28/17 08:25 06/28/17 08:00 - Medications Medications: Current Medications Acetaminophen (Tylenol 325mg Tab) 650 mg PO Q4 PRN PRN Reason: Pain, moderate (4-7) Last Admin: 06/25/17 22:59 Dose: 650 mg Aspirin (Ecotrin) 81 mg PO DAILY [facility] Last Admin: 06/28/17 08:25 Dose: 81 mg Atorvastatin Calcium (Lipitor) 20 mg PO DAILY@2100 [facility] Carvedilol (Coreg) 6.25 mg PO Q12 [facility] Last Admin: 06/28/17 08:25 Dose: 6.25 mg Enoxaparin Sodium (Lovenox) 40 mg SC DAILY [facility] PRN Reason: Protocol Last Admin: 06/28/17 08:25 Dose: 40 mg Latanoprost (Xalatan Opht) 1 drop OD HS [facility] Last Admin: 06/27/17 21:45 Dose: 1 drop Levalbuterol HCl (Xopenex) 0.63 mg INH RQ8 [facility] Last Admin: 06/28/17 15:17 Dose: Not Given Sennosides (Senokot Tab) 17.2 mg PO HS [facility] Last Admin: 06/27/17 21:45 Dose: 17.2 mg - Labs Labs: 06/22/17 05:15 06/22/17 05:15 - Respiratory Exam Respiratory Exam: NORMAL BREATHING PATTERN - Cardiovascular Exam Cardiovascular Exam: REGULAR RHYTHM - GI/Abdominal Exam GI & Abdominal Exam: Normal Bowel Sounds Assessment and Plan - Assessment and Plan (Free Text) Assessment: Adj Rxn refusing therapy?? Seen by Psych S/P R Hip THR POD #11 Ortho OOB PT TCU S/P NSTEMI HTN cadiomyopathy Cardiology Hypoxia?? transient COPD Pulmonary
--- NOTE | 2017-06-28 18:55 | CP.PCM.CON ---
History of Present Illness - History of Present Illness History of Present Illness: consult requested as a follow up as pt has not been cooperative with physical therapy, occasionaly after sustaining a hip fracture Dr Means requesting re evaluation of pt on evaluation pt seen in bed, when asked about her declining physical therapy she stated that she had occasional abdominal pain and episodes of stool incontenience which hinders her from participating in physical therapy when asked about if she recognizes where she is she said this is [facility] when asked about the coming holiday she said Thanks giving pt at current mental status oriented to person , place and partialy to time she denied any changes in sleep or appetite or other symptoms of depression, denied manic or psychotic symptoms denied S/HI Past Patient History - Past Medical History & Family History Past Medical History?: Yes - Past Social History Smoking Status: Current Some Days Smoker Drugs: Denies Home Situation {Lives}: Alone (ground floor) - CARDIAC Hx Hypertension: Yes - PULMONARY Hx Respiratory Disorders: Yes Hx Chronic Obstructive Pulmonary Disease (COPD): Yes - NEUROLOGICAL Hx Neurological Disorder: No - HEENT Hx HEENT Problems: Yes Hx Glaucoma: Yes Hx Macular Degeneration: Yes - RENAL Hx Chronic Kidney Disease: No - ENDOCRINE/METABOLIC Hx Endocrine Disorders: No - HEMATOLOGICAL/ONCOLOGICAL Hx Blood Disorders: No Hx AIDS: No Hx Human Immunodeficiency Virus (HIV): No - INTEGUMENTARY Hx Dermatological Problems: No - MUSCULOSKELETAL/RHEUMATOLOGICAL Hx Falls: Yes - GASTROINTESTINAL Hx Gastrointestinal Disorders: No - GENITOURINARY/GYNECOLOGICAL Hx Genitourinary Disorders: No - PSYCHIATRIC Hx Psychophysiologic Disorder: No Hx Substance Use: No - SURGICAL HISTORY Hx Surgeries: Yes Hx Eye Surgery: Yes Other/Comment: skin graft to legs, left eye surgery s/p Rt THR - ANESTHESIA Hx Anesthesia: Yes Hx Anesthesia Reactions: No Meds Allergies/Adverse Reactions: Allergies Allergy/AdvReac Type Severity Reaction Status Date / Time Penicillins Allergy SWELLING Verified 06/20/17 14:25 - Medications Medications: Current Medications Acetaminophen (Tylenol 325mg Tab) 650 mg PO Q4 PRN PRN Reason: Pain, moderate (4-7) Last Admin: 06/25/17 22:59 Dose: 650 mg Aspirin (Ecotrin) 81 mg PO DAILY [facility] Last Admin: 06/28/17 08:25 Dose: 81 mg Atorvastatin Calcium (Lipitor) 20 mg PO DAILY@2100 [facility] Carvedilol (Coreg) 6.25 mg PO Q12 [facility] Last Admin: 06/28/17 08:25 Dose: 6.25 mg Enoxaparin Sodium (Lovenox) 40 mg SC DAILY [facility] PRN Reason: Protocol Last Admin: 06/28/17 08:25 Dose: 40 mg Latanoprost (Xalatan Opht) 1 drop OD HS [facility] Last Admin: 06/27/17 21:45 Dose: 1 drop Levalbuterol HCl (Xopenex) 0.63 mg INH RQ8 [facility] Last Admin: 06/28/17 15:17 Dose: Not Given Sennosides (Senokot Tab) 17.2 mg PO HS [facility] Last Admin: 06/27/17 21:45 Dose: 17.2 mg Physical Exam - Psychiatric Exam Additional comments: PT CALM COOPERATIVE, GOOD EYE CONTACT, NO ABNORMAL MOVEMENT, SPEECH SOFT AND SLOW. THOUGHT FORM COHERENT , DENIED ANY CURRENT S/H I DENIED PERCEPTUAL DISTURBANCES ALERT AWAKE ORIENTED TO PERSON AND PLACE Results - Vital Signs Recent Vital Signs: Last Vital Signs Temp 97.7 F 06/28/17 18:03 Pulse 70 06/28/17 18:03 Resp 20 06/28/17 18:03 BP 117/70 06/28/17 18:03 Pulse Ox 96 06/28/17 18:03 - Labs Result Diagrams: 06/22/17 05:15 06/22/17 05:15 Assessment & Plan - Assessment and Plan (Free Text) Assessment: NO PSYCHIATRIC DIAGNOSIS OR CONDITION Plan: SUPPORTIVE THERAPY - Date & Time Date: 06/28/17 Time: 03:00
[2017-06-28] MEDS: Latanoprost 0.005% Opht SOUTION OD SCH (21:48)
[2017-06-29] MEDS: Levalbuterol 0.63 MG/3 ML Inhal Soln UD INH SCH ×3 (01:19→15:54)
[2017-06-29] MEDS: Enoxaparin 40 mg Syringe SC SCH (09:00)
--- NOTE | 2017-06-29 20:31 | CP.PCM.PN ---
Subjective - Date & Time of Evaluation Date of Evaluation: 06/29/17 Time of Evaluation: 22:22 - Subjective Subjective: Above noted Objective - Vital Signs/Intake and Output Vital Signs (last 24 hours): Temp Pulse Resp BP Pulse Ox 96.8 F L 95 H 20 103/50 L 93 L 06/29/17 20:14 06/29/17 20:14 06/29/17 20:14 06/29/17 20:14 06/29/17 20:14 - Medications Medications: Current Medications Acetaminophen (Tylenol 325mg Tab) 650 mg PO Q4 PRN PRN Reason: Pain, moderate (4-7) Last Admin: 06/25/17 22:59 Dose: 650 mg Aspirin (Ecotrin) 81 mg PO DAILY [facility] Last Admin: 06/29/17 09:00 Dose: 81 mg Atorvastatin Calcium (Lipitor) 20 mg PO DAILY@2100 [facility] Last Admin: 06/28/17 21:48 Dose: 20 mg Carvedilol (Coreg) 6.25 mg PO Q12 [facility] Last Admin: 06/29/17 09:00 Dose: 6.25 mg Enoxaparin Sodium (Lovenox) 40 mg SC DAILY [facility] PRN Reason: Protocol Last Admin: 06/29/17 09:00 Dose: 40 mg Latanoprost (Xalatan Opht) 1 drop OD HS [facility] Last Admin: 06/28/17 21:48 Dose: 1 drop Levalbuterol HCl (Xopenex) 0.63 mg INH RQ8 [facility] Last Admin: 06/29/17 15:54 Dose: 0.63 mg Sennosides (Senokot Tab) 17.2 mg PO HS [facility] Last Admin: 06/28/17 21:48 Dose: 17.2 mg - Labs Labs: 06/22/17 05:15 06/22/17 05:15 - Respiratory Exam Respiratory Exam: NORMAL BREATHING PATTERN - Cardiovascular Exam Cardiovascular Exam: REGULAR RHYTHM - GI/Abdominal Exam GI & Abdominal Exam: Normal Bowel Sounds Assessment and Plan - Assessment and Plan (Free Text) Assessment: Adj Rxn refusing therapy?? Seen by Psych S/P R Hip THR POD #11 Ortho OOB PT TCU S/P NSTEMI HTN cadiomyopathy Cardiology Hypoxia?? transient COPD Pulmonary
[2017-06-29] MEDS: Latanoprost 0.005% Opht SOUTION OD SCH (21:10)
[2017-06-30] MEDS: Enoxaparin 40 mg Syringe SC SCH (08:42)
--- NOTE | 2017-06-30 09:51 | CP.PCM.PN ---
Subjective - Date & Time of Evaluation Date of Evaluation: 06/30/17 Time of Evaluation: 08:30 - Subjective Subjective: NO NEW COMPLAINTS Objective - Vital Signs/Intake and Output Vital Signs (last 24 hours): Temp Pulse Resp BP Pulse Ox 97.9 F 85 20 109/50 L 96 06/30/17 08:06 06/30/17 08:42 06/30/17 08:06 06/30/17 08:42 06/30/17 08:06 - Medications Medications: Current Medications Acetaminophen (Tylenol 325mg Tab) 650 mg PO Q4 PRN PRN Reason: Pain, moderate (4-7) Last Admin: 06/25/17 22:59 Dose: 650 mg Aspirin (Ecotrin) 81 mg PO DAILY [facility] Last Admin: 06/30/17 08:42 Dose: 81 mg Atorvastatin Calcium (Lipitor) 20 mg PO DAILY@2100 [facility] Last Admin: 06/29/17 21:06 Dose: 20 mg Carvedilol (Coreg) 6.25 mg PO Q12 [facility] Last Admin: 06/30/17 08:42 Dose: 6.25 mg Enoxaparin Sodium (Lovenox) 40 mg SC DAILY [facility] PRN Reason: Protocol Last Admin: 06/30/17 08:42 Dose: 40 mg Latanoprost (Xalatan Opht) 1 drop OD HS [facility] Last Admin: 06/29/17 21:10 Dose: 1 drop Levalbuterol HCl (Xopenex) 0.63 mg INH RQ8 [facility] Last Admin: 06/29/17 15:54 Dose: 0.63 mg Sennosides (Senokot Tab) 17.2 mg PO HS [facility] Last Admin: 06/29/17 21:07 Dose: 17.2 mg - Labs Labs: 06/22/17 05:15 06/22/17 05:15 - Respiratory Exam Respiratory Exam: Clear to Ausculation Bilateral - Cardiovascular Exam Cardiovascular Exam: REGULAR RHYTHM, +S1, +S2 Assessment and Plan - Assessment and Plan (Free Text) Assessment: S/P RIGHT HIP FRACTURE WITH TOTAL RHR HYPERTENSION HYPERLIPIDEMIA Plan: CONTINUE ASPIRIN, LOVENOX, ATORVASTATIN, METOPROLOL
[2017-06-30] MEDS: Levalbuterol 0.63 MG/3 ML Inhal Soln UD INH SCH ×3 (11:42→23:26)
--- NOTE | 2017-06-30 14:41 | CP.PCM.PN ---
Subjective - Date & Time of Evaluation Date of Evaluation: 06/30/17 Time of Evaluation: 22:22 - Subjective Subjective: Above noted Objective - Vital Signs/Intake and Output Vital Signs (last 24 hours): Temp Pulse Resp BP Pulse Ox 97.9 F 85 20 109/50 L 96 06/30/17 08:06 06/30/17 08:42 06/30/17 08:06 06/30/17 08:42 06/30/17 08:06 - Medications Medications: Current Medications Acetaminophen (Tylenol 325mg Tab) 650 mg PO Q4 PRN PRN Reason: Pain, moderate (4-7) Last Admin: 06/25/17 22:59 Dose: 650 mg Aspirin (Ecotrin) 81 mg PO DAILY [facility] Last Admin: 06/30/17 08:42 Dose: 81 mg Atorvastatin Calcium (Lipitor) 20 mg PO DAILY@2100 [facility] Last Admin: 06/29/17 21:06 Dose: 20 mg Carvedilol (Coreg) 6.25 mg PO Q12 [facility] Last Admin: 06/30/17 08:42 Dose: 6.25 mg Enoxaparin Sodium (Lovenox) 40 mg SC DAILY [facility] PRN Reason: Protocol Last Admin: 06/30/17 08:42 Dose: 40 mg Latanoprost (Xalatan Opht) 1 drop OD HS [facility] Last Admin: 06/29/17 21:10 Dose: 1 drop Levalbuterol HCl (Xopenex) 0.63 mg INH RQ8 [facility] Last Admin: 06/30/17 11:42 Dose: 0.63 mg Sennosides (Senokot Tab) 17.2 mg PO HS [facility] Last Admin: 06/29/17 21:07 Dose: 17.2 mg - Labs Labs: 06/22/17 05:15 06/22/17 05:15 - Respiratory Exam Respiratory Exam: NORMAL BREATHING PATTERN - Cardiovascular Exam Cardiovascular Exam: REGULAR RHYTHM - GI/Abdominal Exam GI & Abdominal Exam: Normal Bowel Sounds Assessment and Plan - Assessment and Plan (Free Text) Assessment: Adj Rxn refusing therapy?? Seen by Psych S/P R Hip THR POD #11 Ortho OOB PT TCU S/P NSTEMI HTN cadiomyopathy Cardiology Hypoxia?? transient COPD Pulmonary
[2017-06-30] MEDS: Latanoprost 0.005% Opht SOUTION OD SCH (21:35)
[2017-07-01] MEDS: Levalbuterol 0.63 MG/3 ML Inhal Soln UD INH SCH ×2 (07:06→07:08)
[2017-07-01] MEDS: Enoxaparin 40 mg Syringe SC SCH (08:49)
[2017-07-01 08:50] VITALS: PULSE 79
[2017-07-01 09:55] VITALS: BP 103/54; TEMP 97.2; O2SAT 99
== END 2017-07-01 11:20 | DRG 560 ==
LOC: H.TCU 14:38
PROVIDERS: ADMIT Family Medicine Geriatric Medicine; ATTEND Family Medicine Geriatric Medicine
PROC: F08Z4FZ Home Management Treatment using Assistive, Adaptive, Supportive or Protective Equipment (ICD-10-PCS; principal; 2017-06-20)
PROC: F07M6FZ Therapeutic Exercise Treatment of Musculoskeletal System - Whole Body using Assistive, Adaptive, Supportive or Protective Equipment (ICD-10-PCS; 2017-06-20)
PROC: F07Z9FZ Gait Training/Functional Ambulation Treatment using Assistive, Adaptive, Supportive or Protective Equipment (ICD-10-PCS; 2017-06-20)
DX: Z47.1 Aftercare following joint replacement surgery (principal); I42.9 Cardiomyopathy, unspecified; I10 Essential (primary) hypertension; E78.5 Hyperlipidemia, unspecified; F17.200 Nicotine dependence, unspecified, uncomplicated; F43.20 Adjustment disorder, unspecified; H35.30 Unspecified macular degeneration; H40.9 Unspecified glaucoma; H54.7 Unspecified visual loss; I25.2 Old myocardial infarction; J43.9 Emphysema, unspecified; R09.02 Hypoxemia; Z53.20 Procedure and treatment not carried out because of patient's decision for unspecified reasons; Z96.641 Presence of right artificial hip joint; R07.9 Chest pain, unspecified; R10.9 Unspecified abdominal pain; R74.8 Abnormal levels of other serum enzymes; Z91.81 History of falling

== ENCOUNTER 2017-07-05 17:13 | Inpatient (IN) | payer MEDICARE, BC ==
[2017-07-05 17:13] VITALS: BMI 22.8
[2017-07-05] MEDS ORDERED: Sodium Chloride 0.9% 1,000 ML IV STA (17:37)
--- NOTE | 2017-07-05 17:43 | ED PDOC ---
Lower Extremity Pain/Injury Time Seen by Provider: 07/05/17 17:37 Chief Complaint (Nursing): Upper Extremity Problem/Injury Chief Complaint (Provider): hip pain History Per: Patient History/Exam Limitations: no limitations Onset/Duration Of Symptoms: Days (several days) Current Symptoms Are (Timing): Still Present Additional Complaint(s): Pt. has had R hip pain for several days and redness to the hip. Had surgery here in Nov and dc to the [facility] on [facility]17. Noted to have redness, unclear and possible dc from the hip surgery wound so cultures gotten. Cultures growth per paperwork show 07/05/17 results as klebsiella pneumonia sensitive to levaquin. Pt. with no numbness, tingles. Only gets out of bed to chair off and on. No dyspnea, weakness, headaches, chest pain. Past Medical History Reviewed: Historical Data, Nursing Documentation, Vital Signs Vital Signs: Last Vital Signs Temp 98.0 F 07/05/17 17:17 Pulse 81 07/05/17 17:17 Resp 16 07/05/17 17:17 BP 108/57 L 07/05/17 17:17 Pulse Ox 98 07/05/17 17:17 - Medical History PMH: COPD, Emphysema (Sseen on CT scan of the lungs done on presentation.), HTN , Hyperlipidemia Denies: HIV, Chronic Kidney Disease - Surgical History Surgical History: Cholecystectomy Other surgeries: hip surgery R - Family History Family History: States: Unknown Family Hx - Living Arrangements Living Arrangements: [facility] - Social History Current smoker - smoking cessation education provided: No Alcohol: None Drugs: Denies - Home Medications Home Medications: Ambulatory Orders Medication Instructions Recorded Latanoprost [Xalatan] 1 drop OD HS 06/08/17 Carvedilol [Coreg] 6.25 mg PO Q12 tab 06/20/17 Sennosides A and B [Senokot Tab] 17.2 mg PO HS tab 06/20/17 Aspirin [Aspirin EC] 325 mg PO Q12 07/01/17 Acetaminophen [Tylenol 325mg tab] 650 mg PO Q6 PRN 07/05/17 Acetaminophen [Tylenol 325mg tab] 650 mg PO Q6H PRN 07/05/17 Albuterol/Ipratropium [Duoneb 3 3 ml PO QID 07/05/17 mg/0.5 mg (3 ml) UD] Ascorbic Acid [Vitamin C 500 mg 500 mg PO DAILY 07/05/17 Tab] Atorvastatin [Lipitor] 20 mg PO HS 07/05/17 Balsam [place] Oil [Venelex 1 appl TOP QSHIFT 07/05/17 Ointment] Collagenase [Santyl] 1 appl TOP DAILY 07/05/17 Enoxaparin [Lovenox] 40 mg SC QPM 07/05/17 Multimineral/Multivitamin 1 tab PO DAILY 07/05/17 [Therapeutic-M Tab] oxyCODONE/Acetaminophen [Percocet 1 tab PO Q4H PRN 07/05/17 5/325 mg Tab] - Allergies Allergies/Adverse Reactions: Allergies Allergy/AdvReac Type Severity Reaction Status Date / Time Penicillins Allergy SWELLING Verified 07/05/17 17:15 Review of Systems ROS Statement: Except As Marked, All Systems Reviewed And Found Negative Musculoskeletal: Positive for: Leg Pain Skin: Positive for: Rash Physical Exam - Reviewed Nursing Documentation Reviewed: Yes Vital Signs Reviewed: Yes - Physical Exam Appears: Positive for: Non-toxic, No Acute Distress Head Exam: Positive for: ATRAUMATIC, NORMAL INSPECTION, NORMOCEPHALIC Skin: Positive for: Normal Color, Warm, DRY Eye Exam: Positive for: EOMI, Normal appearance, PERRL ENT: Positive for: Normal ENT Inspection Neck: Positive for: Normal, Painless ROM, Supple Cardiovascular/Chest: Positive for: Regular Rate, Rhythm Respiratory: Positive for: CNT, Normal Breath Sounds Pulses-Dorsalis Pedis (R): 2+ Gastrointestinal/Abdominal: Positive for: Normal Exam, Bowel Sounds, Soft. Negative for: Tenderness Back: Positive for: Normal Inspection. Negative for: L CVA Tenderness, R CVA Tenderness Extremity: Positive for: Tenderness (R hip with wound closed; erythema around wound approx 5cm diameter; condon/yellow dc), Other (limited ROM of R leg due to pain in hip). Negative for: Pedal Edema Neurologic/Psych: Positive for: Alert, Oriented - Laboratory Results Result Diagrams: 07/05/17 18:40 07/05/17 18:40 Interpretation Of Abn Labs: no acute - ECG ECG: Positive for: Interpreted By Me, Viewed By Me ECG Rhythm: Positive for: Left Bundle Branch Block (same as old) O2 Sat by Pulse Oximetry: 98 - Radiology X-Ray: Interpreted by Me, Viewed By Me X-Ray Interpretation: No Acute Disease - Progress ED Course And Treament: 1831: Stable. Spoke with Dr. Quiroga. [facility]. 1911: Spoke with Dr. Briceno. Agrees with current management plan. 1953: Stable. Spoke with Dr. Gil. Will consult. Agrees with current management. Disposition - Clinical Impression Clinical Impression: Cellulitis - Patient ED Disposition Is Patient to be Admitted: Yes Counseled Patient/Family Regarding: Studies Performed, Diagnosis - Disposition Disposition Time: 18:10 Condition: FAIR
[2017-07-05] MEDS ORDERED: levoFLOXacin 750 mg in D5W 150 ML BAG IVPB STA (17:46)
[2017-07-05] MEDS ORDERED: levoFLOXacin 750 mg in D5W 750 MG/150 ML BAG IVPB STA (17:48)
[2017-07-05 18:20] LABS: VENOUS BLOOD GAS BASE EXCESS 10.1 mmol/L (0.0-2.0); VENOUS BLOOD GAS PCO2 62 mmHg (40-60); VENOUS BLOOD PH 7.39 (7.32-7.43)
[2017-07-05] MEDS ORDERED: levoFLOXacin 750 mg in D5W 750 MG/150 ML BAG IVPB ONE (18:37)
[2017-07-05 18:46] LABS: BASO % 0.5 % (0.0-2.0); EOS # 0.1 K/uL (0.0-0.7); MONO # 0.5 K/uL (0.0-0.8); NRBC % 0.1 % (0.0-0.0)
[2017-07-05 18:58] LABS: EOS % 2.6 % (0.0-4.0); HEMATOCRIT 31.3 % (34.0-47.0); LYMPH # 1.3 K/uL (1.0-4.3); LYMPH % 25.3 % (20.0-40.0); MEAN CELL VOLUME 100.3 fl (81.0-99.0); MEAN CORPUSCULAR HEMOGLOBIN 33.5 pg (27.0-31.0); MEAN CORPUSCULAR HGB CONC 33.4 g/dL (33.0-37.0); MEAN PLATELET VOLUME 8.4 fl (7.2-11.7); MONO % 10.9 % (0.0-10.0); NEUT % 60.7 % (50.0-75.0)
[2017-07-05 19:06] LABS: PARTIAL THROMBOPLASTIN TIME 29.6 Seconds (25.6-37.1)
[2017-07-05] MEDS ORDERED: Albuterol-Ipratrop 3 mg / 0.5 (3 ml) UD IH STA (19:11)
[2017-07-05 19:22] LABS: ALKALINE PHOSPHATASE 85 U/L (38-126); ALT/SGPT 37 U/L (9-52); AST/SGOT 22 U/L (14-36); BILIRUBIN,TOTAL 0.2 mg/dl (0.2-1.3); BLOOD UREA NITROGEN 18 mg/dl (7-17); CALCIUM 9.2 mg/dL (8.4-10.2); CARBON DIOXIDE 34 mmol/L (22-30); CHLORIDE 97 mmol/L (98-107); GFR AFRICAN-AMERICAN > 60; GLUCOSE,RANDOM 106 mg/dL (65-105); MAGNESIUM 1.4 MG/DL (1.6-2.3); PHOSPHOROUS 2.6 mg/dl (2.5-4.5); POTASSIUM 3.8 MMOL/L (3.6-5.0); SODIUM 137 mmol/l (132-148); TOTAL PROTEIN 5.2 G/DL (6.3-8.2)
[2017-07-05] MEDS ORDERED: BALSAM PERU TOP SCH (22:00)
[2017-07-05] MEDS ORDERED: CASTOR OIL APPL TOP SCH (22:00)
[2017-07-05] MEDS: Latanoprost 0.005% Opht SOUTION OD SCH (22:40)
[2017-07-05] MEDS: Albuterol-Ipratrop 3 mg / 0.5 (3 ml) UD INH SCH (23:37)
[2017-07-06] MEDS: Albuterol-Ipratrop 3 mg / 0.5 (3 ml) UD INH SCH ×4 (07:48→20:11)
[2017-07-06] MEDS: Aspirin 325 mg EC Tablets PO SCH ×2 (08:20→21:40)
[2017-07-06] MEDS: Multivitamin With Minerals Tab PO SCH (08:20)
[2017-07-06] MEDS: Santyl Collagenase OINTMENT TOP SCH (08:22)
[2017-07-06] MEDS ORDERED: levoFLOXacin 750 mg in D5W 150 ML BAG IVPB SCH (09:00)
[2017-07-06] MEDS ORDERED: levoFLOXacin 750 mg in D5W 750 MG/150 ML BAG IVPB SCH (09:00)
[2017-07-06] MEDS: levoFLOXacin 750 mg in D5W 750 MG/150 ML BAG IVPB SCH (09:05)
--- NOTE | 2017-07-06 09:57 | RAD ---
PROCEDURE: Right Hip Radiographs. HISTORY: pain COMPARISON: 06/14/2017 FINDINGS: BONES: Frontal and frogleg views of the right hip and frontal view of the pelvis were performed. Previously noted surgical nilton have been removed. There is decreased postsurgical changes overlying the soft tissues of the right hip. There is a right hip replacement identified. This appears in anatomic position. There is no interval change in position from the prior study. No fracture is noted. No periosteal reaction is seen. No obvious joint effusion is seen. Remainder of the bony structures are unchanged. No fracture is seen. JOINTS: See above SOFT TISSUES: See above OTHER FINDINGS: None. IMPRESSION: Status post right hip replacement in anatomic position. There does not appear to be significant interval change in position from the prior study. No appreciable plain film evidence of loosening or hardware failure.
--- NOTE | 2017-07-06 09:59 | RAD ---
HISTORY: Sepsis Patient COMPARISON: 06/19/2017 FINDINGS: LUNGS: There is interval improvement in aeration at the left lung base with mild residual subsegmental atelectasis and minor residual left pleural fluid. There is mild subsegmental atelectasis also seen at the right lung base. Mild interstitial changes are noted elsewhere. PLEURA: Minor left pleural effusion. CARDIOVASCULAR: Heart is moderately enlarged. Aorta shows evidence of atherosclerotic change and uncoiling. OSSEOUS STRUCTURES: No significant abnormalities. VISUALIZED UPPER ABDOMEN: Normal. OTHER FINDINGS: None. IMPRESSION: Improved aeration at the left lung base with mild subsegmental atelectasis remaining as well as minor left pleural fluid. Mild subsegmental atelectasis is also noted at the right lung base.
--- NOTE | 2017-07-06 10:12 | CP.PCM.CON ---
History of Present Illness - History of Present Illness History of Present Illness: Plastic Surgery Consult Note for Dr. Kiran Reason for consult: Wound dehiscence/infection 82 F with PMH of HTN, NSTEMI, R hip fracture, macular degenration, glaucoma, detached retina was admitted for cellulitis. Plastic surgery was consulted for wound dehiscence/infection. Patient had R ORIF for fracture 3 weeks ago s/p fall. Patient was in [place] for extended physical therapy when it was noticed that she began to have some drainage. Patient is unsure of how long this has been going on. Patient states that she is having pain intermittently in the R hip incision. She states pain as moderate. She describes it as throbbing without radiation. Patient denies alleviating or exacerbating factors. Admits to urinary incontinence, frequency, and occasional dysuria but denies fever/chills , cp, sob, abd pain, n/v/d. PMD: Dr. Quiroga PMH: HTN, NSTEMI, R hip fracture, macular degenration, glaucoma, detached retina , h/o DVT, s/p fall Meds: As per EMR Allergy: PCN PSH: R hip ORIF FH: unknown Social: denies Review of Systems - Constitutional Constitutional: absent: Chills, Fever - EENT Eyes: absent: Pain Ears: absent: Tinnitus, Dizziness Nose/Mouth/Throat: absent: Nose Pain, Sore Throat, Neck Pain, Neck Mass - Breasts Breasts: absent: Change in Shape, Mass, Pain - Cardiovascular Cardiovascular: absent: Chest Pain, Chest Pain at Rest, Chest Pain with Activity , Dyspnea - Respiratory Respiratory: absent: Cough, Dyspnea, Hemoptysis - Gastrointestinal Gastrointestinal: absent: Abdominal Pain, Belching, Bloating, Constipation, Diarrhea, Dysphagia, Melena, Nausea, Vomiting - Genitourinary Genitourinary: Dysuria, Urinary Incontinence, Urinary Frequency - Musculoskeletal Musculoskeletal: absent: Numbness, Tingling - Integumentary Integumentary: New Lesions (r hip) - Neurological Neurological: absent: Dizziness, Numbness, Tingling, Weakness - Psychiatric Psychiatric: absent: Anxiety, Depression, Homicidal Ideation, Suicidal Ideation - Endocrine Endocrine: absent: Fatigue, Palpitations - Hematologic/Lymphatic Hematologic: absent: Easy Bleeding, Easy Bruising, Lymphadenopathy Past Patient History - Past Medical History & Family History Past Medical History?: Yes - Past Social History Smoking Status: Never Smoked - CARDIAC Hx Cardiac Disorders: Yes Hx Hypertension: Yes - PULMONARY Hx Respiratory Disorders: Yes Hx Chronic Obstructive Pulmonary Disease (COPD): Yes Other/Comment: emphysema - NEUROLOGICAL Hx Neurological Disorder: No - HEENT Hx HEENT Problems: Yes Hx Glaucoma: Yes Hx Macular Degeneration: Yes - RENAL Hx Chronic Kidney Disease: No - ENDOCRINE/METABOLIC Hx Endocrine Disorders: No - HEMATOLOGICAL/ONCOLOGICAL Hx Human Immunodeficiency Virus (HIV): No - INTEGUMENTARY Hx Dermatological Problems: No - MUSCULOSKELETAL/RHEUMATOLOGICAL Hx Falls: No - GASTROINTESTINAL Hx Gastrointestinal Disorders: No - GENITOURINARY/GYNECOLOGICAL Hx Genitourinary Disorders: No - PSYCHIATRIC Hx Substance Use: No - SURGICAL HISTORY Hx Cholecystectomy: Yes Hx Open Reduction Internal Fixation: Yes (right hip) - ANESTHESIA Hx Anesthesia: Yes Hx Anesthesia Reactions: No Meds Allergies/Adverse Reactions: Allergies Allergy/AdvReac Type Severity Reaction Status Date / Time Penicillins Allergy SWELLING Verified 07/05/17 17:15 - Medications Medications: Current Medications Acetaminophen (Tylenol 325mg Tab) 650 mg PO Q6 PRN PRN Reason: Pain, Mild (1-3) Albuterol/Ipratropium (Duoneb 3 Mg/0.5 Mg (3 Ml) Ud) 3 ml INH RQID [facility] Last Admin: 07/06/17 07:48 Dose: Not Given Ascorbic Acid (Vitamin C 500 Mg Tab) 500 mg PO DAILY [facility] Last Admin: 07/06/17 08:22 Dose: 500 mg Aspirin (Ecotrin) 325 mg PO Q12 [facility] Last Admin: 07/06/17 08:20 Dose: 325 mg Atorvastatin Calcium (Lipitor) 20 mg PO HS [facility] Last Admin: 07/05/17 22:38 Dose: 20 mg Carvedilol (Coreg) 6.25 mg PO Q12 [facility] Last Admin: 07/06/17 08:21 Dose: Not Given Collagenase (Santyl) 1 applic TOP DAILY [facility] Last Admin: 07/06/17 08:22 Dose: 1 applic Enoxaparin Sodium (Lovenox) 40 mg SC QPM [facility] PRN Reason: Protocol Home Med (Balsam [place] Oil [Venelex Ointment]) 1 appl TOP QSHIFT [facility] Levofloxacin/Dextrose (Levaquin 750mg) 750 mg in 150 mls @ 150 mls/hr IVPB DAILY [facility] Latanoprost (Xalatan Opht) 1 drop OD HS [facility] Last Admin: 07/05/17 22:40 Dose: 1 drop Multivitamins/Minerals (Therapeutic-M Tab) 1 tab PO DAILY [facility] Last Admin: 07/06/17 08:20 Dose: 1 tab Oxycodone/Acetaminophen (Percocet 5/325 Mg Tab) 1 tab PO Q4H PRN PRN Reason: Pain, moderate (4-7) Stop: 07/08/17 21:53 Sennosides (Senokot Tab) 17.2 mg PO HS [facility] Last Admin: 07/05/17 22:39 Dose: 17.2 mg Physical Exam - Constitutional Appears: No Acute Distress - Head Exam Head Exam: ATRAUMATIC, NORMOCEPHALIC - Eye Exam Eye Exam: EOMI - ENT Exam ENT Exam: Mucous Membranes Moist - Respiratory Exam Respiratory Exam: NORMAL BREATHING PATTERN - Cardiovascular Exam Cardiovascular Exam: REGULAR RHYTHM - GI/Abdominal Exam GI & Abdominal Exam: absent: Distended, Guarding, Rebound, Tenderness Additional comments: [address] within LLQ - Extremities Exam Additional comments: R hip has ~4-5 cm wound at previous incision, minimla discharge and surrounding erythema present - Neurological Exam Neurological exam: Alert, Oriented x3 - Psychiatric Exam Psychiatric exam: Normal Affect, Normal Mood - Skin Skin Exam: Dry, Warm Results - Vital Signs Recent Vital Signs: Last Vital Signs Temp 97.5 F L 07/06/17 08:04 Pulse 71 07/06/17 08:04 Resp 20 07/06/17 08:04 BP 95/53 L 07/06/17 08:21 Pulse Ox 97 07/06/17 08:04 - Labs Result Diagrams: 07/05/17 18:40 07/05/17 18:40 Labs: Laboratory Results - last 24 hr 07/05/17 07/05/17 07/05/17 18:15 18:40 18:40 WBC 5.0 RBC 3.12 L Hgb 10.5 L Hct 31.3 L MCV 100.3 H MCH 33.5 H MCHC 33.4 RDW 16.0 H Plt Count 208 MPV 8.4 Neut % (Auto) 60.7 Lymph % (Auto) 25.3 Ashley % (Auto) 10.9 H Eos % (Auto) 2.6 Baso % (Auto) 0.5 Neut # 3.0 Lymph # 1.3 Ashley # 0.5 Eos # 0.1 Baso # 0.0 PT INR APTT pO2 18 L VBG pH 7.39 VBG pCO2 62 H VBG HCO3 30.9 VBG Total CO2 39.4 H VBG O2 Sat (Calc) 33.8 L VBG Base Excess 10.1 H VBG Potassium 3.8 Sodium 135.0 137 Chloride 100.0 97 L Glucose 108 H Lactate 0.7 FiO2 21.0 Potassium 3.8 Carbon Dioxide 34 H Anion Gap 10 BUN 18 H Creatinine 0.6 L Est GFR ( Amer) > 60 Est GFR (Non-Af Amer) > 60 Random Glucose 106 H Calcium 9.2 Phosphorus 2.6 Magnesium 1.4 L Total Bilirubin 0.2 AST 22 ALT 37 Alkaline Phosphatase 85 Troponin I 0.0140 Total Protein 5.2 L Albumin 2.7 L Globulin 2.6 Albumin/Globulin Ratio 1.0 Venous Blood Potassium 3.8 07/05/17 18:40 WBC RBC Hgb Hct MCV MCH MCHC RDW Plt Count MPV Neut % (Auto) Lymph % (Auto) Ashley % (Auto) Eos % (Auto) Baso % (Auto) Neut # Lymph # Ashley # Eos # Baso # PT 12.2 INR 1.1 APTT 29.6 pO2 VBG pH VBG pCO2 VBG HCO3 VBG Total CO2 VBG O2 Sat (Calc) VBG Base Excess VBG Potassium Sodium Chloride Glucose Lactate FiO2 Potassium Carbon Dioxide Anion Gap BUN Creatinine Est GFR ( Amer) Est GFR (Non-Af Amer) Random Glucose Calcium Phosphorus Magnesium Total Bilirubin AST ALT Alkaline Phosphatase Troponin I Total Protein Albumin Globulin Albumin/Globulin Ratio Venous Blood Potassium Assessment & Plan - Assessment and Plan (Free Text) Plan: 82 F with wound dehiscence/infection -Continue IV antibiotics -Wound debridement, washout, and wound vac placement will be done in OR with presence of Ortho on Monday (07/10) -Discussed with Dr. Magno Stallworth PGY1
--- NOTE | 2017-07-06 10:59 | CARD ---
APPROVED REPORT EKG Measurement Heart [id number] <Conclusion> Normal sinus rhythm Left axis deviation Left bundle branch block Abnormal ECG
--- NOTE | 2017-07-06 13:08 | CP.PCM.CON ---
History of Present Illness - History of Present Illness History of Present Illness: ID: 82 yo female wqellknown to my practice CC- s/p successful THR for Fx- presents with wounjdexcoriation, NO EVIDENCE for deep sepsis HPI; 82 yo female well known to my practic epresetns after successful THR, but with extyremely poor physion effort. Pt was not gettikn g OOB -pt sent to subacute, wound excoriation noted. No evidence for deep sepssis Thigh n ot swollen Pt still howbver refractory to physio Past Patient History - Past Medical History & Family History Past Medical History?: Yes - Past Social History Smoking Status: Never Smoked - CARDIAC Hx Cardiac Disorders: Yes Hx Hypertension: Yes - PULMONARY Hx Respiratory Disorders: Yes Hx Chronic Obstructive Pulmonary Disease (COPD): Yes Other/Comment: emphysema - NEUROLOGICAL Hx Neurological Disorder: No - HEENT Hx HEENT Problems: Yes Hx Glaucoma: Yes Hx Macular Degeneration: Yes - RENAL Hx Chronic Kidney Disease: No - ENDOCRINE/METABOLIC Hx Endocrine Disorders: No - HEMATOLOGICAL/ONCOLOGICAL Hx Human Immunodeficiency Virus (HIV): No - INTEGUMENTARY Hx Dermatological Problems: No - MUSCULOSKELETAL/RHEUMATOLOGICAL Hx Falls: No - GASTROINTESTINAL Hx Gastrointestinal Disorders: No - GENITOURINARY/GYNECOLOGICAL Hx Genitourinary Disorders: No - PSYCHIATRIC Hx Substance Use: No - SURGICAL HISTORY Hx Cholecystectomy: Yes Hx Open Reduction Internal Fixation: Yes (right hip) - ANESTHESIA Hx Anesthesia: Yes Hx Anesthesia Reactions: No Meds Allergies/Adverse Reactions: Allergies Allergy/AdvReac Type Severity Reaction Status Date / Time Penicillins Allergy SWELLING Verified 07/05/17 17:15 - Medications Medications: Current Medications Acetaminophen (Tylenol 325mg Tab) 650 mg PO Q6 PRN PRN Reason: Pain, Mild (1-3) Albuterol/Ipratropium (Duoneb 3 Mg/0.5 Mg (3 Ml) Ud) 3 ml INH RQID [facility] Last Admin: 07/06/17 11:28 Dose: Not Given Ascorbic Acid (Vitamin C 500 Mg Tab) 500 mg PO DAILY [facility] Last Admin: 07/06/17 08:22 Dose: 500 mg Aspirin (Ecotrin) 325 mg PO Q12 [facility] Last Admin: 07/06/17 08:20 Dose: 325 mg Atorvastatin Calcium (Lipitor) 20 mg PO HS [facility] Last Admin: 07/05/17 22:38 Dose: 20 mg Carvedilol (Coreg) 6.25 mg PO Q12 [facility] Last Admin: 07/06/17 08:21 Dose: Not Given Collagenase (Santyl) 1 applic TOP DAILY [facility] Last Admin: 07/06/17 08:22 Dose: 1 applic Enoxaparin Sodium (Lovenox) 40 mg SC QPM [facility] PRN Reason: Protocol Home Med (Balsam Edel/[place] Oil [Venelex Ointment]) 1 appl TOP QSHIFT [facility] Levofloxacin/Dextrose (Levaquin 750mg) 750 mg in 150 mls @ 100 mls/hr IVPB DAILY [facility] Latanoprost (Xalatan Opht) 1 drop OD HS [facility] Last Admin: 07/05/17 22:40 Dose: 1 drop Multivitamins/Minerals (Therapeutic-M Tab) 1 tab PO DAILY [facility] Last Admin: 07/06/17 08:20 Dose: 1 tab Oxycodone/Acetaminophen (Percocet 5/325 Mg Tab) 1 tab PO Q4H PRN PRN Reason: Pain, moderate (4-7) Stop: 07/08/17 21:53 Sennosides (Senokot Tab) 17.2 mg PO HS [facility] Last Admin: 07/05/17 22:39 Dose: 17.2 mg Physical Exam - Additional Findings Additional findings: Musculoskeltal stance/gait- defrred pt without pain on passive ROM R hip/no sigificant drainage wound excoriated with area pof compromise approx 3cm Results - Vital Signs Recent Vital Signs: Last Vital Signs Temp 97.5 F L 07/06/17 08:04 Pulse 71 07/06/17 08:04 Resp 20 07/06/17 08:04 BP 95/53 L 07/06/17 08:21 Pulse Ox 97 07/06/17 08:04 - Labs Result Diagrams: 07/05/17 18:40 07/05/17 18:40 Labs: Laboratory Results - last 24 hr 07/05/17 07/05/17 07/05/17 18:15 18:40 18:40 WBC 5.0 RBC 3.12 L Hgb 10.5 L Hct 31.3 L MCV 100.3 H MCH 33.5 H MCHC 33.4 RDW 16.0 H Plt Count 208 MPV 8.4 Neut % (Auto) 60.7 Lymph % (Auto) 25.3 Schuyler % (Auto) 10.9 H Eos % (Auto) 2.6 Baso % (Auto) 0.5 Neut # 3.0 Lymph # 1.3 Schuyler # 0.5 Eos # 0.1 Baso # 0.0 PT INR APTT pO2 18 L VBG pH 7.39 VBG pCO2 62 H VBG HCO3 30.9 VBG Total CO2 39.4 H VBG O2 Sat (Calc) 33.8 L VBG Base Excess 10.1 H VBG Potassium 3.8 Sodium 135.0 137 Chloride 100.0 97 L Glucose 108 H Lactate 0.7 FiO2 21.0 Potassium 3.8 Carbon Dioxide 34 H Anion Gap 10 BUN 18 H Creatinine 0.6 L Est GFR ( Amer) > 60 Est GFR (Non-Af Amer) > 60 Random Glucose 106 H Calcium 9.2 Phosphorus 2.6 Magnesium 1.4 L Total Bilirubin 0.2 AST 22 ALT 37 Alkaline Phosphatase 85 Troponin I 0.0140 Total Protein 5.2 L Albumin 2.7 L Globulin 2.6 Albumin/Globulin Ratio 1.0 Venous Blood Potassium 3.8 07/05/17 18:40 WBC RBC Hgb Hct MCV MCH MCHC RDW Plt Count MPV Neut % (Auto) Lymph % (Auto) Schuyler % (Auto) Eos % (Auto) Baso % (Auto) Neut # Lymph # Schuyler # Eos # Baso # PT 12.2 INR 1.1 APTT 29.6 pO2 VBG pH VBG pCO2 VBG HCO3 VBG Total CO2 VBG O2 Sat (Calc) VBG Base Excess VBG Potassium Sodium Chloride Glucose Lactate FiO2 Potassium Carbon Dioxide Anion Gap BUN Creatinine Est GFR ( Amer) Est GFR (Non-Af Amer) Random Glucose Calcium Phosphorus Magnesium Total Bilirubin AST ALT Alkaline Phosphatase Troponin I Total Protein Albumin Globulin Albumin/Globulin Ratio Venous Blood Potassium - Impressions Impression: Imaging- Xrays reveal excellent psotion of THR construct Assessment & Plan - Assessment and Plan (Free Text) Assessment: A- successful TH with wound excoriation no evidence for deep sepsis P- recommend plastic surgical consult/wound care consult ID consult would respectfully suggest 3 wks iv abios (pic-line) to protect prostheios/ plastic surgeyr for possible wound debridement and closure
[2017-07-06] MEDS: Enoxaparin 40 mg Syringe SC SCH (17:04)
[2017-07-06 20:56] LABS: RBC URINE < 1 /hpf (0-3); URINE BILIRUBIN NEGATIVE (NEGATIVE); URINE BLOOD NEGATIVE (NEGATIVE); URINE COLOR YELLOW (YELLOW); URINE GLUCOSE (UA) NEG (Normal); URINE KETONE NEGATIVE (NEGATIVE); URINE LEUKOCYTE ESTERASE NEG Leu/uL (Negative); URINE PROTEIN NEGATIVE (NEGATIVE); URINE UROBILINOGEN 0.2-1.0 mg/dL (0.2-1.0); WBC URINE < 1 /hpf (0-5)
[2017-07-06] MEDS: Latanoprost 0.005% Opht SOUTION OD SCH (21:40)
[2017-07-07] MEDS: Oxycodone/Acetaminophen 5/325 mg Tab PO PRN ×2 (02:49→16:51)
[2017-07-07] MEDS: Albuterol-Ipratrop 3 mg / 0.5 (3 ml) UD INH SCH ×4 (07:13→22:01)
[2017-07-07] MEDS: Aspirin 325 mg EC Tablets PO SCH (08:33)
[2017-07-07] MEDS: Santyl Collagenase OINTMENT TOP SCH (08:34)
[2017-07-07] MEDS: levoFLOXacin 750 mg in D5W 750 MG/150 ML BAG IVPB SCH (08:34)
[2017-07-07] MEDS: Multivitamin With Minerals Tab PO SCH (08:34)
--- NOTE | 2017-07-07 09:00 | CP.PCM.PN ---
Subjective - Date & Time of Evaluation Date of Evaluation: 07/07/17 Time of Evaluation: 08:55 - Subjective Subjective: S- pt wioyth out discomfort- no evidence for DEEP HIP SEPSIS Objective - Vital Signs/Intake and Output Vital Signs (last 24 hours): Temp Pulse Resp BP Pulse Ox 98.1 F 90 20 155/90 H 92 L 07/07/17 08:09 07/07/17 08:28 07/07/17 08:09 07/07/17 08:28 07/07/17 08:09 - Medications Medications: Current Medications Acetaminophen (Tylenol 325mg Tab) 650 mg PO Q6 PRN PRN Reason: Pain, Mild (1-3) Albuterol/Ipratropium (Duoneb 3 Mg/0.5 Mg (3 Ml) Ud) 3 ml INH RQID [facility] Last Admin: 07/07/17 07:13 Dose: Not Given Ascorbic Acid (Vitamin C 500 Mg Tab) 500 mg PO DAILY [facility] Last Admin: 07/07/17 08:34 Dose: 500 mg Aspirin (Ecotrin) 325 mg PO Q12 [facility] Last Admin: 07/07/17 08:33 Dose: 325 mg Atorvastatin Calcium (Lipitor) 20 mg PO HS [facility] Last Admin: 07/06/17 21:39 Dose: 20 mg Carvedilol (Coreg) 6.25 mg PO Q12 [facility] Last Admin: 07/07/17 08:28 Dose: 6.25 mg Collagenase (Santyl) 1 applic TOP DAILY [facility] Last Admin: 07/07/17 08:34 Dose: 1 applic Enoxaparin Sodium (Lovenox) 40 mg SC QPM [facility] PRN Reason: Protocol Last Admin: 07/06/17 17:04 Dose: 40 mg Home Med (Balsam Edel/[place] Oil [Venelex Ointment]) 1 appl TOP QSHIFT [facility] Levofloxacin/Dextrose (Levaquin 750mg) 750 mg in 150 mls @ 100 mls/hr IVPB DAILY [facility] Last Admin: 07/07/17 08:34 Dose: 100 mls/hr Latanoprost (Xalatan Opht) 1 drop OD HS [facility] Last Admin: 07/06/17 21:40 Dose: 1 drop Multivitamins/Minerals (Therapeutic-M Tab) 1 tab PO DAILY [facility] Last Admin: 07/07/17 08:34 Dose: 1 tab Oxycodone/Acetaminophen (Percocet 5/325 Mg Tab) 1 tab PO Q4H PRN PRN Reason: Pain, moderate (4-7) Stop: 07/08/17 21:53 Last Admin: 07/07/17 02:49 Dose: 1 tab Sennosides (Senokot Tab) 17.2 mg PO HS [facility] Last Admin: 07/06/17 21:39 Dose: 17.2 mg - Labs Labs: 07/05/17 18:40 07/05/17 18:40 PT 12.2 Seconds (9.8-13.1) 07/05/17 18:40 INR 1.1 (0.9-1.2) 07/05/17 18:40 APTT 29.6 Seconds (25.6-37.1) 07/05/17 18:40 - Skin Additional comments: Objective systemic- wnl Musculoskekltal- wound excoriation unchanged afebirle no evidence for deep hip sepsis orthopedically stable case discussed with Dr Magno benitez Assessment and Plan - Assessment and Plan (Free Text) Assessment: - wound excoriation s/p THR R P to OR Monday froo debridemnt by plastics AGAIN no clinical evidence for deep sepsis
--- NOTE | 2017-07-07 09:14 | CP.PCM.PN ---
Subjective - Date & Time of Evaluation Date of Evaluation: 07/07/17 Time of Evaluation: 07:45 - Subjective Subjective: Plastic Surgery Dr. Kiran Pt S&E @bedside. NAEO. Pt reports chills and 1 episode vomiting overnight. Pt currently denies nausea. pt admits to RLE pain specifically at knee and ankle. denies numbness/tingling Objective - Vital Signs/Intake and Output Vital Signs (last 24 hours): Temp Pulse Resp BP Pulse Ox 98.1 F 90 20 155/90 H 92 L 07/07/17 08:09 07/07/17 08:28 07/07/17 08:09 07/07/17 08:28 07/07/17 08:09 - Medications Medications: Current Medications Acetaminophen (Tylenol 325mg Tab) 650 mg PO Q6 PRN PRN Reason: Pain, Mild (1-3) Albuterol/Ipratropium (Duoneb 3 Mg/0.5 Mg (3 Ml) Ud) 3 ml INH RQID [facility] Last Admin: 07/07/17 07:13 Dose: Not Given Ascorbic Acid (Vitamin C 500 Mg Tab) 500 mg PO DAILY [facility] Last Admin: 07/07/17 08:34 Dose: 500 mg Aspirin (Ecotrin) 325 mg PO Q12 [facility] Last Admin: 07/07/17 08:33 Dose: 325 mg Atorvastatin Calcium (Lipitor) 20 mg PO HS [facility] Last Admin: 07/06/17 21:39 Dose: 20 mg Carvedilol (Coreg) 6.25 mg PO Q12 [facility] Last Admin: 07/07/17 08:28 Dose: 6.25 mg Collagenase (Santyl) 1 applic TOP DAILY [facility] Last Admin: 07/07/17 08:34 Dose: 1 applic Enoxaparin Sodium (Lovenox) 40 mg SC QPM [facility] PRN Reason: Protocol Last Admin: 07/06/17 17:04 Dose: 40 mg Home Med (Balsam Edel/[place] Oil [Venelex Ointment]) 1 appl TOP QSHIFT [facility] Levofloxacin/Dextrose (Levaquin 750mg) 750 mg in 150 mls @ 100 mls/hr IVPB DAILY [facility] Last Admin: 07/07/17 08:34 Dose: 100 mls/hr Latanoprost (Xalatan Opht) 1 drop OD HS [facility] Last Admin: 07/06/17 21:40 Dose: 1 drop Multivitamins/Minerals (Therapeutic-M Tab) 1 tab PO DAILY [facility] Last Admin: 07/07/17 08:34 Dose: 1 tab Oxycodone/Acetaminophen (Percocet 5/325 Mg Tab) 1 tab PO Q4H PRN PRN Reason: Pain, moderate (4-7) Stop: 07/08/17 21:53 Last Admin: 07/07/17 02:49 Dose: 1 tab Sennosides (Senokot Tab) 17.2 mg PO HS [facility] Last Admin: 07/06/17 21:39 Dose: 17.2 mg - Labs Labs: 07/05/17 18:40 07/05/17 18:40 PT 12.2 Seconds (9.8-13.1) 07/05/17 18:40 INR 1.1 (0.9-1.2) 07/05/17 18:40 APTT 29.6 Seconds (25.6-37.1) 07/05/17 18:40 - Constitutional Appears: Non-toxic, No Acute Distress, Chronically Ill - Head Exam Head Exam: NORMAL INSPECTION - Eye Exam Eye Exam: Normal appearance - ENT Exam ENT Exam: Mucous Membranes Moist - Respiratory Exam Respiratory Exam: NORMAL BREATHING PATTERN. absent: Accessory Muscle Use, Respiratory Distress - Cardiovascular Exam Cardiovascular Exam: absent: Bradycardia, Tachycardia - GI/Abdominal Exam GI & Abdominal Exam: Soft. absent: Distended, Tenderness - Extremities Exam Additional comments: R hip incision w/ erythema, warmth, and minimal drainage dressing stained - Neurological Exam Neurological Exam: Alert, Awake - Psychiatric Exam Psychiatric exam: Normal Affect, Normal Mood - Skin Skin Exam: Dry, Warm Assessment and Plan - Assessment and Plan (Free Text) Assessment: 82 F w/ wound dehiscence/infection - Cont IV Abx - cont pain management - cont PT/OT - dressing changes PRN - Wound debridement, washout, and wound vac placement w/ Ortho scheduled for Monday (07/10) Pt discussed w/ Dr. Magno Lezama DO PGY2
[2017-07-07] MEDS ORDERED: Lidocaine 1% Inj (20ml) ONE (10:10)
--- NOTE | 2017-07-07 11:31 | CP.PCM.PN ---
Subjective - Date & Time of Evaluation Date of Evaluation: 07/07/17 Time of Evaluation: 08:30 - Subjective Subjective: Patient states she has no pain. No new complaints. Objective - Vital Signs/Intake and Output Vital Signs (last 24 hours): Temp Pulse Resp BP Pulse Ox 98.3 F 76 18 97/57 L 97 07/07/17 10:38 07/07/17 10:38 07/07/17 10:38 07/07/17 10:38 07/07/17 10:38 - Medications Medications: Current Medications Acetaminophen (Tylenol 325mg Tab) 650 mg PO Q6 PRN PRN Reason: Pain, Mild (1-3) Albuterol/Ipratropium (Duoneb 3 Mg/0.5 Mg (3 Ml) Ud) 3 ml INH RQID [facility] Last Admin: 07/07/17 07:13 Dose: Not Given Ascorbic Acid (Vitamin C 500 Mg Tab) 500 mg PO DAILY [facility] Last Admin: 07/07/17 08:34 Dose: 500 mg Aspirin (Ecotrin) 325 mg PO Q12 [facility] Last Admin: 07/07/17 08:33 Dose: 325 mg Atorvastatin Calcium (Lipitor) 20 mg PO HS [facility] Last Admin: 07/06/17 21:39 Dose: 20 mg Carvedilol (Coreg) 6.25 mg PO Q12 [facility] Last Admin: 07/07/17 08:28 Dose: 6.25 mg Collagenase (Santyl) 1 applic TOP DAILY [facility] Last Admin: 07/07/17 08:34 Dose: 1 applic Enoxaparin Sodium (Lovenox) 40 mg SC QPM [facility] [place] PRN Reason: Protocol Last Admin: 07/06/17 17:04 Dose: 40 mg Home Med (Balsam Edel/[place] Oil [Venelex Ointment]) 1 appl TOP QSHIFT [facility] [place] Levofloxacin/Dextrose (Levaquin 750mg) 750 mg in 150 mls @ 100 mls/hr IVPB DAILY [facility] [place] Last Admin: 07/07/17 08:34 Dose: 100 mls/hr Latanoprost (Xalatan Opht) 1 drop OD [facility] Last Admin: 07/06/17 21:40 Dose: 1 drop Multivitamins/Minerals (Therapeutic-M Tab) 1 tab PO DAILY [facility] [place] Last Admin: 07/07/17 08:34 Dose: 1 tab Oxycodone/Acetaminophen (Percocet 5/325 Mg Tab) 1 tab PO Q4H PRN PRN Reason: Pain, moderate (4-7) Stop: 07/08/17 21:53 Last Admin: 07/07/17 02:49 Dose: 1 tab Sennosides (Senokot Tab) 17.2 mg PO HS [facility] Last Admin: 07/06/17 21:39 Dose: 17.2 mg - Labs Labs: 07/05/17 18:40 07/05/17 18:40 PT 12.2 Seconds (9.8-13.1) 07/05/17 18:40 INR 1.1 (0.9-1.2) 07/05/17 18:40 APTT 29.6 Seconds (25.6-37.1) 07/05/17 18:40 - Extremities Exam Additional comments: Right hip: scant serous drainage, 3cm area of ?eschar to incision with mild surrounding erythema +ROM ankle/toes, sensation intact +DP/PT pulses calves soft NT neg homans Assessment and Plan (1) Cellulitis Assessment & Plan: for OR with Dr. Kiran for wound vac application 07/10 Dr. Gil aware cont abx per ID, PICC line placed Status: Acute
--- NOTE | 2017-07-07 13:04 | CP.PCM.CON ---
History of Present Illness - History of Present Illness History of Present Illness: Pt. has had R hip pain for several days and redness to the hip. Had surgery here in Nov and dc to the [place] [facility]. Noted to have redness, unclear and possible dc from the hip surgery wound so cultures gotten. Cultures growth per paperwork show 07/05/17 results as klebsiella pneumonia sensitive to levaquin. Pt. with no numbness, tingles. Only gets out of bed to chair off and on. No dyspnea, weakness, headaches, chest pain. - Medical History PMH: COPD, Emphysema (Sseen on CT scan of the lungs done on presentation.), HTN , Hyperlipidemia Denies: HIV, Chronic Kidney Disease Review of Systems - Review of Systems All systems: reviewed and no additional remarkable complaints except - Constitutional Constitutional: As Per HPI - EENT Eyes: As Per HPI, Blind Spots, Blurred Vision Ears: absent: As Per HPI, Decreased Hearing, Ear Discharge, Ear Pain, Tinnitus, Abnormal Hearing, Disequilibrium, Dizziness, Other Nose/Mouth/Throat: absent: As Per HPI, Epistaxis, Nasal Congestion, Nasal Discharge, Nasal Obstruction, Nasal Trauma, Nose Pain, Post Nasal Drip, Sinus Pain, Sinus Pressure, Bleeding Gums, Change in Voice, Dental Pain, Dry Mouth, Dysphagia, Halitosis, Hoarsness, Lip Swelling, Mouth Lesions, Mouth Pain, Odynophagia, Sore Throat, Throat Swelling, Tongue Swelling, Facial Pain, Neck Pain, Neck Mass, Other - Breasts Breasts: absent: As Per HPI, Change in Shape, Mass, Pain, Nipple Discharge, Nipple Inversion, Skin Changes, Swelling, Other - Cardiovascular Cardiovascular: absent: As Per HPI, Acrocyanosis, Chest Pain, Chest Pain at Rest , Chest Pain with Activity, Claudication, Diaphoresis, Dyspnea, Dyspnea on Exertion, Edema, Irregular Heart Rhythm, Pain Radiating to Arm/Neck/Jaw, Leg Edema, Leg Ulcers, Lightheadedness, Orthopnea, Palpitations, Paroxysmal Nocturnal Dyspnea, Pedal Edema, Radiating Pain, Rapid Heart Rate, Slow Heart Rate, Syncope, Other - Respiratory Respiratory: absent: As Per HPI, Cough, Dyspnea, Hemoptysis, Dyspnea on Exertion , Wheezing, Snoring, Stridor, Pain on Inspiration, Chest Congestion, Excessive Mucous Production, Change in Mucous Color, Pain with Coughing, Other - Gastrointestinal Gastrointestinal: absent: As Per HPI, Abdominal Pain, Belching, Bloating, Change in Bowel Habits, Change in Stool Character, Coffee Ground Emesis, Constipation, Cramping, Diarrhea, Dyspepsia, Dysphagia, Early Satiety, Excessive Flatus, Fecal Incontinence, Heartburn, Hematemesis, Hematochezia, Loose Stools, Melena, Nausea, Odynophagia, Temesmus, Vomiting, Other - Genitourinary Genitourinary: absent: As Per HPI, Change in Urinary Stream, Difficulty Urinating, Dysuria, Flank Pain, Hematuria, Pyuria, Nocturia, Urinary Incontinence, Urinary Frequency, Urinary Hesitance, Urinary Urgency, Voiding Freq/Small Amts, Freq UTI, Hx Renal/Bladder Calculi, Hx /Renal Surgery, Bladder Distension, Other - Reproductive: Female Reproductive:Female: absent: As Per HPI, Amenorrhea, Amenorrhea/ Control, Currently Menstual, Cycle <21 Days, Cycle >35 Days, Cycle Variable, Menses 1-7 Days, Menses >/= 8 Days, Menses Variable, Cycle > 4 Weeks Between, No Menses for 6 Months, Heavy Menses, Light Menses, Normal Menses, Spotting Between Cycles , S/P Hysterectomy, Menopausal, Post Menopausal, Premenarche, Abnormal Vaginal Bleeding, Dysmenorrhea, Dyspareunia, Genital Lesions, Genital Pruritis, Pelvic Pain, Prolapse Symptoms, Sexual Dysfunction, Vaginal Discharge, Vaginal Dryness , Vaginal Odor, Vaginal Pruritis, Other - Menstruation Menstruation: absent: As Per HPI, Amenorrhea, Amenorrhea/ Control, Currently Menstual, Cycle <21 Days, Cycle >35 Days, Cycle Variable, Menses 1-7 Days, Menses >/= 8 Days, Menses Variable, Cycle > 4 Weeks Between, No Menses for 6 Months, Heavy Menses, Light Menses, Normal Menses, Spotting Between Cycles , S/P Hysterectomy, Menopausal, Post Menopausal, Premenarche, Abnormal Vaginal Bleeding, Dysmenorrhea, Other - Musculoskeletal Musculoskeletal: As Per HPI - Integumentary Integumentary: As Per HPI, Skin Pain, Wounds - Neurological Neurological: absent: As Per HPI, Abnormal Gait, Abnormal Hearing, Abnormal Movements, Abnormal Speech, Behavioral Changes, Burning Sensations, Confusion, Convulsions, Disequilibrium, Dizziness, Numbness, Focal Weakness, Frequent Falls , Headaches, Lack of Coordination, Loss of Vision, Memory Loss, Paresthesias, Radicular Pain, Restless Legs, Sensory Deficit, Syncope, Tingling, Tremor, Vertigo, Weakness, Other Visual Disturbances, Other - Psychiatric Psychiatric: absent: As Per HPI, Abnormal Sleep Pattern, Anhedonia, Anxiety, Auditory Hallucinations, Behavioral Changes, Change in Appetite, Change in Libido, Confusion, Depression, Difficulty Concentrating, Hallucinations, Homicidal Ideation, Hopelessness, Irritability, Memory Loss, Mood Swings, Panic Attacks, Paranoia, Suicidal Ideation, Visual Hallucinations, Tactile Hallucinations, Other - Endocrine Endocrine: absent: As Per HPI, Change in Body Appearance, Change in Libido, Cold Intolorance, Deepening of Voice, Excessive Sweating, Fatigue, Flushing, Heat Intolorance, Increase in Ring/Shoe/Hat Size, Palpitations, Polydipsia, Polyphagia, Polyuria, Other Past Patient History - Past Medical History & Family History Past Medical History?: Yes - Past Social History Smoking Status: Never Smoked - CARDIAC Hx Cardiac Disorders: Yes Hx Hypertension: Yes - PULMONARY Hx Respiratory Disorders: Yes Hx Chronic Obstructive Pulmonary Disease (COPD): Yes Other/Comment: emphysema - NEUROLOGICAL Hx Neurological Disorder: No - HEENT Hx HEENT Problems: Yes Hx Glaucoma: Yes Hx Macular Degeneration: Yes - RENAL Hx Chronic Kidney Disease: No - ENDOCRINE/METABOLIC Hx Endocrine Disorders: No - HEMATOLOGICAL/ONCOLOGICAL Hx Human Immunodeficiency Virus (HIV): No - INTEGUMENTARY Hx Dermatological Problems: No - MUSCULOSKELETAL/RHEUMATOLOGICAL Hx Falls: No - GASTROINTESTINAL Hx Gastrointestinal Disorders: No - GENITOURINARY/GYNECOLOGICAL Hx Genitourinary Disorders: No - PSYCHIATRIC Hx Substance Use: No - SURGICAL HISTORY Hx Cholecystectomy: Yes Hx Open Reduction Internal Fixation: Yes (right hip) - ANESTHESIA Hx Anesthesia: Yes Hx Anesthesia Reactions: No Meds Allergies/Adverse Reactions: Allergies Allergy/AdvReac Type Severity Reaction Status Date / Time Penicillins Allergy SWELLING Verified 07/05/17 17:15 - Medications Medications: Current Medications Acetaminophen (Tylenol 325mg Tab) 650 mg PO Q6 PRN PRN Reason: Pain, Mild (1-3) Albuterol/Ipratropium (Duoneb 3 Mg/0.5 Mg (3 Ml) Ud) 3 ml INH RQID [facility] Last Admin: 07/07/17 11:37 Dose: Not Given Ascorbic Acid (Vitamin C 500 Mg Tab) 500 mg PO DAILY [facility] Last Admin: 07/07/17 08:34 Dose: 500 mg Aspirin (Ecotrin) 325 mg PO Q12 [facility] Last Admin: 07/07/17 08:33 Dose: 325 mg Atorvastatin Calcium (Lipitor) 20 mg PO HS [facility] Last Admin: 07/06/17 21:39 Dose: 20 mg Carvedilol (Coreg) 6.25 mg PO Q12 [facility] Last Admin: 07/07/17 08:28 Dose: 6.25 mg Collagenase (Santyl) 1 applic TOP DAILY [facility] Last Admin: 07/07/17 08:34 Dose: 1 applic Enoxaparin Sodium (Lovenox) 40 mg SC QPM [facility] PRN Reason: Protocol Last Admin: 07/06/17 17:04 Dose: 40 mg Home Med (Balsam Edel/[place] Oil [Venelex Ointment]) 1 appl TOP QSHIFT [facility] Levofloxacin/Dextrose (Levaquin 750mg) 750 mg in 150 mls @ 100 mls/hr IVPB DAILY [facility] Last Admin: 07/07/17 08:34 Dose: 100 mls/hr Latanoprost (Xalatan Opht) 1 drop OD HS [facility] Last Admin: 07/06/17 21:40 Dose: 1 drop Multivitamins/Minerals (Therapeutic-M Tab) 1 tab PO DAILY [facility] Last Admin: 07/07/17 08:34 Dose: 1 tab Oxycodone/Acetaminophen (Percocet 5/325 Mg Tab) 1 tab PO Q4H PRN PRN Reason: Pain, moderate (4-7) Stop: 07/08/17 21:53 Last Admin: 07/07/17 02:49 Dose: 1 tab Sennosides (Senokot Tab) 17.2 mg PO HS [facility] Last Admin: 07/06/17 21:39 Dose: 17.2 mg Physical Exam - Constitutional Appears: Non-toxic, Chronically Ill - Head Exam Head Exam: ATRAUMATIC, NORMAL INSPECTION, NORMOCEPHALIC - Eye Exam Eye Exam: absent: Scleral icterus Additional comments: blind right eye - ENT Exam ENT Exam: Mucous Membranes Dry, Normal External Ear Exam - Neck Exam Neck exam: Negative for: Lymphadenopathy - Respiratory Exam Respiratory Exam: Decreased Breath Sounds, Clear to Auscultation Bilateral - Cardiovascular Exam Cardiovascular Exam: REGULAR RHYTHM, +S1, +S2 - GI/Abdominal Exam GI & Abdominal Exam: Diminished Bowel Sounds, Distended, Soft. absent: Guarding , Rebound, Rigid, Tenderness - Rectal Exam Rectal Exam: Deferred - Exam Exam: NORMAL INSPECTION - Extremities Exam Extremities exam: Positive for: pedal pulses present. Negative for: calf tenderness, pedal edema, tenderness Additional comments: swelling erythema right hip hip surgical site w/o pus - Back Exam Back exam: absent: CVA tenderness (L), CVA tenderness (R) - Neurological Exam Neurological exam: Alert, CN II-XII Intact, Oriented x3, Reflexes Normal - Psychiatric Exam Psychiatric exam: Depressed - Skin Skin Exam: Dry Results - Vital Signs Recent Vital Signs: Last Vital Signs Temp 98.3 F 07/07/17 10:38 Pulse 76 07/07/17 10:38 Resp 18 07/07/17 10:38 BP 97/57 L 07/07/17 10:38 Pulse Ox 97 07/07/17 10:38 - Labs Result Diagrams: 07/05/17 18:40 07/05/17 18:40 Labs: Laboratory Results - last 24 hr 07/05/17 08:30 Urine Color Yellow Urine Clarity Clear Urine pH 6.0 Ur Specific [place] 1.013 Urine Protein Negative Urine Glucose (UA) Neg Urine Ketones Negative Urine Blood Negative Urine Nitrate Negative Urine Bilirubin Negative Urine Urobilinogen 0.2-1.0 Ur Leukocyte Esterase Neg Urine RBC (Auto) < 1 Urine Microscopic WBC < 1 Ur Squamous Epith Cells 1 Assessment & Plan (1) Cellulitis Status: Acute
--- NOTE | 2017-07-07 13:12 | CP.PCM.CON ---
History of Present Illness - History of Present Illness History of Present Illness: THE PATIENT IS AN 82 YEAR OLD FEMALE KNOWN TO ME FROM HER RECENT [facility] ADMISSIONS. SHE FELL AND SUSTAINED A RIGHT HIP FRACTURE AND UNDERWENT A TOTAL RIGHT HIP REPLACEMENT [address] STOREY. SHE WENT TO TCU FOR REHAB AND WAS NOT MOTIVATED TO DO MUCH WHILE THERE. SHE WAS DISCHARGED TO [facility] ON 07/01/17 AND WAS ADMITTED AGAIN THE OTHER DAY FOR ERYTHEMA, WARMNESS AND A POSSIBLE DISCHARGE FROM THE SURGICAL WOUND SITE AND WAS STARTED ON IV ANTIBIOTICS. SHE WAS SEEN BOTH BY ORTHOPEDICS AND PLASTIC SURGERY AND WILL GO TO THE ER ON MONDAY FOR A DEBRIDEMENT. CARDIOLOGY WAS ASKED TO SEE AND FOLLOW HER ON THIS ADMISSION. SHE ALSO HAS A HISTORY OF CARDIOMYOPATHY AND HYPERTENSION. HER TROPONIN LEVELS WERE MILDLY ELEVATED ON HER FIRST ADMISSION AND WERE BELIEVED TO MOST PROBABLY BE FROM HEMOCONCENTRATION SHE WAS ON THE FLOOR OF HER HOME FOR A LONG TIME AFTER FALLING AND WAS NOT EATING OR DRINKING. SHE DENIES ANY CHEST PAIN OR CAD HISTORY. Past Patient History - Past Medical History & Family History Past Medical History?: Yes - Past Social History Smoking Status: Never Smoked - CARDIAC Hx Cardiac Disorders: Yes Hx Hypertension: Yes - PULMONARY Hx Respiratory Disorders: Yes Hx Chronic Obstructive Pulmonary Disease (COPD): Yes Other/Comment: emphysema - NEUROLOGICAL Hx Neurological Disorder: No - HEENT Hx HEENT Problems: Yes Hx Glaucoma: Yes Hx Macular Degeneration: Yes - RENAL Hx Chronic Kidney Disease: No - ENDOCRINE/METABOLIC Hx Endocrine Disorders: No - HEMATOLOGICAL/ONCOLOGICAL Hx Human Immunodeficiency Virus (HIV): No - INTEGUMENTARY Hx Dermatological Problems: No - MUSCULOSKELETAL/RHEUMATOLOGICAL Hx Falls: No - GASTROINTESTINAL Hx Gastrointestinal Disorders: No - GENITOURINARY/GYNECOLOGICAL Hx Genitourinary Disorders: No - PSYCHIATRIC Hx Substance Use: No - SURGICAL HISTORY Hx Cholecystectomy: Yes Hx Open Reduction Internal Fixation: Yes (right hip) - ANESTHESIA Hx Anesthesia: Yes Hx Anesthesia Reactions: No Meds Allergies/Adverse Reactions: Allergies Allergy/AdvReac Type Severity Reaction Status Date / Time Penicillins Allergy SWELLING Verified 07/05/17 17:15 - Medications Medications: Current Medications Acetaminophen (Tylenol 325mg Tab) 650 mg PO Q6 PRN PRN Reason: Pain, Mild (1-3) Albuterol/Ipratropium (Duoneb 3 Mg/0.5 Mg (3 Ml) Ud) 3 ml INH RQID [facility] Last Admin: 07/07/17 11:37 Dose: Not Given Ascorbic Acid (Vitamin C 500 Mg Tab) 500 mg PO DAILY [facility] Last Admin: 07/07/17 08:34 Dose: 500 mg Aspirin (Ecotrin) 325 mg PO Q12 [facility] Last Admin: 07/07/17 08:33 Dose: 325 mg Atorvastatin Calcium (Lipitor) 20 mg PO HS [facility] Last Admin: 07/06/17 21:39 Dose: 20 mg Carvedilol (Coreg) 6.25 mg PO Q12 [facility] Last Admin: 07/07/17 08:28 Dose: 6.25 mg Collagenase (Santyl) 1 applic TOP DAILY [facility] Last Admin: 07/07/17 08:34 Dose: 1 applic Enoxaparin Sodium (Lovenox) 40 mg SC QPM [facility] PRN Reason: Protocol Last Admin: 07/06/17 17:04 Dose: 40 mg Home Med (Balsam Edel/[place] Oil [Venelex Ointment]) 1 appl TOP QSHIFT [facility] Levofloxacin/Dextrose (Levaquin 750mg) 750 mg in 150 mls @ 100 mls/hr IVPB DAILY [facility] Last Admin: 07/07/17 08:34 Dose: 100 mls/hr Vancomycin HCl 1,000 mg/ (Sodium Chloride) 250 mls @ 250 mls/hr IVPB Q12H [facility] PRN Reason: Protocol Latanoprost (Xalatan Opht) 1 drop OD HS [facility] Last Admin: 07/06/17 21:40 Dose: 1 drop Multivitamins/Minerals (Therapeutic-M Tab) 1 tab PO DAILY [facility] Last Admin: 07/07/17 08:34 Dose: 1 tab Oxycodone/Acetaminophen (Percocet 5/325 Mg Tab) 1 tab PO Q4H PRN PRN Reason: Pain, moderate (4-7) Stop: 07/08/17 21:53 Last Admin: 07/07/17 02:49 Dose: 1 tab Sennosides (Senokot Tab) 17.2 mg PO HS [facility] Last Admin: 07/06/17 21:39 Dose: 17.2 mg Physical Exam - Respiratory Exam Respiratory Exam: Clear to Auscultation Bilateral - Cardiovascular Exam Cardiovascular Exam: REGULAR RHYTHM, +S1, +S2 - Additional Findings Additional findings: EKG NSR, LBBB TROPONIN NORMAL Results - Vital Signs Recent Vital Signs: Last Vital Signs Temp 98.3 F 07/07/17 10:38 Pulse 76 07/07/17 10:38 Resp 18 07/07/17 10:38 BP 97/57 L 07/07/17 10:38 Pulse Ox 97 07/07/17 10:38 - Labs Result Diagrams: 07/05/17 18:40 07/05/17 18:40 Labs: Laboratory Results - last 24 hr 07/05/17 08:30 Urine Color Yellow Urine Clarity Clear Urine pH 6.0 Ur Specific [place] 1.013 Urine Protein Negative Urine Glucose (UA) Neg Urine Ketones Negative Urine Blood Negative Urine Nitrate Negative Urine Bilirubin Negative Urine Urobilinogen 0.2-1.0 Ur Leukocyte Esterase Neg Urine RBC (Auto) < 1 Urine Microscopic WBC < 1 Ur Squamous Epith Cells 1 Assessment & Plan - Assessment and Plan (Free Text) Assessment: HYPERTENSION CARDIOMYOPATHY RECENT TOTAL RHR WITH ERYTHEMA, WARMTH AND POSSIBLE DISCHARGE FROM THE SURGICAL WOUND Plan: CONTINUE ANTIBIOTICS, WOUND CARE, CARVEDILOL, LOVENOX THE PATIENT IS CLEARED FOR HER SURGICAL DEBRIDEMENT ASPIRIN WAS STOPPED PRIOR TO SURGERY
--- NOTE | 2017-07-07 14:57 | CP.PCM.HP ---
History of Present Illness - History of Present Illness History of Present Illness: 82 yo s/p THR HTN cardiomyopathy admitted for wound infection Present on Admission - Present on Admission Any Indicators Present on Admission: No Past Patient History - Past Medical History & Family History Past Medical History?: Yes - Past Social History Smoking Status: Never Smoked - CARDIAC Hx Cardiac Disorders: Yes Hx Hypertension: Yes - PULMONARY Hx Respiratory Disorders: Yes Hx Chronic Obstructive Pulmonary Disease (COPD): Yes Other/Comment: emphysema - NEUROLOGICAL Hx Neurological Disorder: No - HEENT Hx HEENT Problems: Yes Hx Glaucoma: Yes Hx Macular Degeneration: Yes - RENAL Hx Chronic Kidney Disease: No - ENDOCRINE/METABOLIC Hx Endocrine Disorders: No - HEMATOLOGICAL/ONCOLOGICAL Hx Human Immunodeficiency Virus (HIV): No - INTEGUMENTARY Hx Dermatological Problems: No - MUSCULOSKELETAL/RHEUMATOLOGICAL Hx Falls: No - GASTROINTESTINAL Hx Gastrointestinal Disorders: No - GENITOURINARY/GYNECOLOGICAL Hx Genitourinary Disorders: No - PSYCHIATRIC Hx Substance Use: No - SURGICAL HISTORY Hx Cholecystectomy: Yes Hx Open Reduction Internal Fixation: Yes (right hip) - ANESTHESIA Hx Anesthesia: Yes Hx Anesthesia Reactions: No Meds Allergies/Adverse Reactions: Allergies Allergy/AdvReac Type Severity Reaction Status Date / Time Penicillins Allergy SWELLING Verified 07/05/17 17:15 Physical Exam - Respiratory Exam Respiratory Exam: NORMAL BREATHING PATTERN - Cardiovascular Exam Cardiovascular Exam: REGULAR RHYTHM - GI/Abdominal Exam GI & Abdominal Exam: Normal Bowel Sounds Results - Vital Signs Recent Vital Signs: Last Vital Signs Temp 98.3 F 07/07/17 10:38 Pulse 76 07/07/17 10:38 Resp 18 07/07/17 10:38 BP 97/57 L 07/07/17 10:38 Pulse Ox 97 07/07/17 10:38 - Labs Result Diagrams: 07/05/17 18:40 07/05/17 18:40 Labs: Laboratory Results - last 24 hr 07/05/17 08:30 Urine Color Yellow Urine Clarity Clear Urine pH 6.0 Ur Specific [place] 1.013 Urine Protein Negative Urine Glucose (UA) Neg Urine Ketones Negative Urine Blood Negative Urine Nitrate Negative Urine Bilirubin Negative Urine Urobilinogen 0.2-1.0 Ur Leukocyte Esterase Neg Urine RBC (Auto) < 1 Urine Microscopic WBC < 1 Ur Squamous Epith Cells 1 Assessment & Plan - Assessment and Plan (Free Text) Assessment: S/P R Hip THR wound infection Ortho ID Plastic ABX S/P NSTEMI HTN cadiomyopathy Cardiology Adj Rxn refusing therapy?? Seen by Psych Metabolic alkalosis?? Nephrology consult COPD - Date & Time Date: 07/07/17 Time: 22:22
[2017-07-07] MEDS: Enoxaparin 40 mg Syringe SC SCH (18:06)
[2017-07-07] MEDS: Latanoprost 0.005% Opht SOUTION OD SCH (21:46)
[2017-07-08] MEDS: Oxycodone/Acetaminophen 5/325 mg Tab PO PRN (04:11)
[2017-07-08] MEDS: Albuterol-Ipratrop 3 mg / 0.5 (3 ml) UD INH SCH ×4 (08:07→19:09)
--- NOTE | 2017-07-08 08:44 | CP.PCM.PN ---
Subjective - Date & Time of Evaluation Date of Evaluation: 07/08/17 Time of Evaluation: 08:43 - Subjective Subjective: Plastic Sx: Dr Kiran Pt S&E. No complaints. States pain in right hip. Plans for OR for wound vac placement tuesday 07/10. Objective - Vital Signs/Intake and Output Vital Signs (last 24 hours): Temp Pulse Resp BP Pulse Ox 97.7 F 73 17 104/64 97 07/08/17 07:47 07/08/17 07:47 07/08/17 07:47 07/08/17 07:47 07/08/17 07:47 - Medications Medications: Current Medications Acetaminophen (Tylenol 325mg Tab) 650 mg PO Q6 PRN PRN Reason: Pain, Mild (1-3) Albuterol/Ipratropium (Duoneb 3 Mg/0.5 Mg (3 Ml) Ud) 3 ml INH RQID [facility] Last Admin: 07/08/17 08:07 Dose: Not Given Ascorbic Acid (Vitamin C 500 Mg Tab) 500 mg PO DAILY [facility] Last Admin: 07/07/17 08:34 Dose: 500 mg Atorvastatin Calcium (Lipitor) 20 mg PO HS [facility] Last Admin: 07/07/17 21:44 Dose: 20 mg Carvedilol (Coreg) 6.25 mg PO Q12 [facility] Last Admin: 07/07/17 21:44 Dose: Not Given Collagenase (Santyl) 1 applic TOP DAILY [facility] Last Admin: 07/07/17 08:34 Dose: 1 applic Enoxaparin Sodium (Lovenox) 40 mg SC QPM [facility] PRN Reason: Protocol Last Admin: 07/07/17 18:06 Dose: 40 mg Home Med (Balsam Edel/[place] Oil [Venelex Ointment]) 1 appl TOP QSHIFT [facility] Levofloxacin/Dextrose (Levaquin 750mg) 750 mg in 150 mls @ 100 mls/hr IVPB DAILY [facility] Last Admin: 07/07/17 08:34 Dose: 100 mls/hr Vancomycin HCl 1 gm/ Sodium (Chloride) 250 mls @ 250 mls/hr IVPB Q12H [facility] PRN Reason: Protocol Last Admin: 07/08/17 00:56 Dose: 250 mls/hr Latanoprost (Xalatan Opht) 1 drop OD HS [facility] Last Admin: 07/07/17 21:46 Dose: 1 drop Multivitamins/Minerals (Therapeutic-M Tab) 1 tab PO DAILY [facility] Last Admin: 07/07/17 08:34 Dose: 1 tab Oxycodone/Acetaminophen (Percocet 5/325 Mg Tab) 1 tab PO Q4H PRN PRN Reason: Pain, moderate (4-7) Stop: 07/08/17 21:53 Last Admin: 07/08/17 04:11 Dose: 1 tab Sennosides (Senokot Tab) 17.2 mg PO HS [facility] Last Admin: 07/07/17 21:44 Dose: 17.2 mg - Labs Labs: 07/05/17 18:40 07/05/17 18:40 PT 12.2 Seconds (9.8-13.1) 07/05/17 18:40 INR 1.1 (0.9-1.2) 07/05/17 18:40 APTT 29.6 Seconds (25.6-37.1) 07/05/17 18:40 - Constitutional Appears: No Acute Distress - Respiratory Exam Respiratory Exam: absent: Accessory Muscle Use, Respiratory Distress - Cardiovascular Exam Cardiovascular Exam: absent: Bradycardia, Tachycardia - Extremities Exam Additional comments: right hip dressing with minimal saturation Assessment and Plan - Assessment and Plan (Free Text) Assessment: 82 F w/ wound dehiscence/infection - IV Abx - cont pain management - dressing changes PRN - Wound debridement, washout, and wound vac placement w/ Ortho scheduled for Monday (07/10) Eli PGY3
[2017-07-08] MEDS: Santyl Collagenase OINTMENT TOP SCH (09:55)
[2017-07-08] MEDS: levoFLOXacin 750 mg in D5W 750 MG/150 ML BAG IVPB SCH (09:58)
[2017-07-08] MEDS: Multivitamin With Minerals Tab PO SCH (12:35)
[2017-07-08] MEDS ORDERED: Dextrose 5%/0.45% NS 1,000 ML IV SCH (14:15)
[2017-07-08 17:03] LABS: HEMATOCRIT 26.6 % (34.0-47.0); MEAN CORPUSCULAR HEMOGLOBIN 33.1 pg (27.0-31.0); MEAN CORPUSCULAR HGB CONC 32.5 g/dL (33.0-37.0); WHITE BLOOD COUNT 4.3 K/uL (4.8-10.8)
[2017-07-08 17:14] LABS: ALKALINE PHOSPHATASE 65 U/L (38-126); ALT/SGPT 35 U/L (9-52); AST/SGOT 16 U/L (14-36); BILIRUBIN,TOTAL 0.2 mg/dl (0.2-1.3); BLOOD UREA NITROGEN 9 mg/dl (7-17); CALCIUM 8.5 mg/dL (8.4-10.2); CARBON DIOXIDE 33 mmol/L (22-30); CHLORIDE 101 mmol/L (98-107); GFR AFRICAN-AMERICAN > 60; GLUCOSE,RANDOM 86 mg/dL (65-105); POTASSIUM 3.9 MMOL/L (3.6-5.0); SODIUM 132 mmol/l (132-148); TOTAL PROTEIN 4.2 G/DL (6.3-8.2)
--- NOTE | 2017-07-08 19:13 | CP.PCM.CON ---
History of Present Illness - History of Present Illness History of Present Illness: Initial Nephrology Consultation: Assessment: Stable elevated serum bicarb likely as renal compensatory to respiratory acidosis (Co2 retention) due to CHF/COPD severe systolic CHF EF <20%, HTN, COPD Rt hip cellulitis Hyponatremia Hypomagnesemia Plan supplement Magnesium as ordered. avoid hypotonic fluids since she has mild hyponatremia and also severe CHF repeat ABG (preferably), if not possible then can do VBG tomorrow with BMP management of primary respi acidosis due to COPD/CHF as per primary team will check urine Chloride Further work up/management as per primary team Thanks for allowing me to participate in care of your patient. Will follow patient with you. Please call if any Qs Dr Samuel Joaquin Office: [phone] Chief Complaint; I am going for surgery Rt hip reason for consult: alkalosis HPI: Pt is a 82 y/o F with hx of severe systolic CHF EF <20%, HTN, COPD is admitted with Rt hip cellulitis and planned for surgery renal consult for elevated bicarb which was noticed on blood test for last 2-3 days and not improving pt is upset for seeing so many doctors Denies chest pain, palpitation, shortness of breath, leg swelling Denies blood or bubbles in urine mostly has low BP. ROS: Constitutional Symptoms: Denies fever. No chills. No Recent Weight Changes Eyes: denies change in vision, denies watery eyes, denies double vision Ears/Nose/Mouth/Throat: Denies Abnormal Taste. No Bad breath no Bad Taste. Cardiovascular: No chest pain. There is no shortness of breath. No palpitations. Pulmonary: No shortness of breath no cough. Gastrointestinal: denies abdominal pain No nausea. No vomiting. Denies change in bowel habits. Denies Bleeding Genitourinary: No Change in force of strain when urinating. No increase in urinary frequency. No pain while urinating. Denies blood in urine. Neurological: Denies headaches. No dizziness. Denies loss of balance. Denies weakness, denies tingling/numbness Dermatological: No Rash or Bruising or ulcers. Psychiatric: Denies Anxiety. No depression. Denies hallucinations. Rheumatological: c/o rt hip joint pain. Denies Joint swelling Endocrine: Denies tiredness/Fatigue denies Heat/Cold Intolerance. All other negative Physical Examination: General Appearance: Comfortable, in no acute respiratory distress, co-operative . irritable/upset Vitals reviewed and noted as below Head; Atraumatic, normocephalic ENT: no ulcers no thrush. Tongue is midline. Oropharynx: no rash or ulcers. EYES: Pupils are equal, round and reactive to light accommodation. Eye muscles and extraocular movement intact. Sclera is anicteric. Neck; supple no lymphadenopathy, no thyromegaly or bruit Lungs: Normal respiratory rate/effort. Breath sounds bilateral equal and has basal crackles Heart: Normal rate. s1s2 normal. No rub or gallop. Extremities: no edema. No varicose veins Neurological: Patient is alert, awake and oriented to person, place and time. No focal deficit. Strength bilateral appropriate and equal Skin: Warm and dry. Normal turgor. No rash. Palpitation: Normal elasticity for age Abdomen: Abdomen is soft. Bowel sounds +. There is no abdominal tenderness, no guarding/rigidity no organomegaly Psych: normal insight and normal affect/mood MSK: Rt hip joint tenderness and swelling with redness. Digits and nails normal , no deformity : kidney or bladder not palpable Labs/imaging/EKG reviewed. Past medical history, past surgical history, family history, social history, allergy reviewed and noted as below Family hx: no hx of CKD. Rest non-contributory VBG 7.39 with pCO2: 62 echo: LVEF <20% CXR: small effusion BNP elevated Past Patient History - Past Medical History & Family History Past Medical History?: Yes - Past Social History Smoking Status: Never Smoked - CARDIAC Hx Cardiac Disorders: Yes Hx Hypertension: Yes - PULMONARY Hx Respiratory Disorders: Yes Hx Chronic Obstructive Pulmonary Disease (COPD): Yes Other/Comment: emphysema - NEUROLOGICAL Hx Neurological Disorder: No - HEENT Hx HEENT Problems: Yes Hx Glaucoma: Yes Hx Macular Degeneration: Yes - RENAL Hx Chronic Kidney Disease: No - ENDOCRINE/METABOLIC Hx Endocrine Disorders: No - HEMATOLOGICAL/ONCOLOGICAL Hx Human Immunodeficiency Virus (HIV): No - INTEGUMENTARY Hx Dermatological Problems: No - MUSCULOSKELETAL/RHEUMATOLOGICAL Hx Falls: No - GASTROINTESTINAL Hx Gastrointestinal Disorders: No - GENITOURINARY/GYNECOLOGICAL Hx Genitourinary Disorders: No - PSYCHIATRIC Hx Substance Use: No - SURGICAL HISTORY Hx Cholecystectomy: Yes Hx Open Reduction Internal Fixation: Yes (right hip) - ANESTHESIA Hx Anesthesia: Yes Hx Anesthesia Reactions: No Meds Allergies/Adverse Reactions: Allergies Allergy/AdvReac Type Severity Reaction Status Date / Time Penicillins Allergy SWELLING Verified 07/05/17 17:15 - Medications Medications: Current Medications Acetaminophen (Tylenol 325mg Tab) 650 mg PO Q6 PRN PRN Reason: Pain, Mild (1-3) Albuterol/Ipratropium (Duoneb 3 Mg/0.5 Mg (3 Ml) Ud) 3 ml INH RQID [facility] Last Admin: 07/08/17 15:22 Dose: Not Given Ascorbic Acid (Vitamin C 500 Mg Tab) 500 mg PO DAILY [facility] Last Admin: 07/08/17 12:35 Dose: 500 mg Atorvastatin Calcium (Lipitor) 20 mg PO HS [facility] Last Admin: 07/07/17 21:44 Dose: 20 mg Carvedilol (Coreg) 6.25 mg PO Q12 [facility] Last Admin: 07/08/17 10:15 Dose: 6.25 mg Collagenase (Santyl) 1 applic TOP DAILY [facility] Last Admin: 07/08/17 09:55 Dose: 1 applic Enoxaparin Sodium (Lovenox) 40 mg SC QPM [facility] PRN Reason: Protocol Last Admin: 07/07/17 18:06 Dose: 40 mg Home Med (Balsam Edel/[place] Oil [Venelex Ointment]) 1 appl TOP QSHIFT [facility] Levofloxacin/Dextrose (Levaquin 750mg) 750 mg in 150 mls @ 100 mls/hr IVPB DAILY [facility] Last Admin: 07/08/17 09:58 Dose: 100 mls/hr Vancomycin HCl 1 gm/ Sodium (Chloride) 250 mls @ 250 mls/hr IVPB Q12H [facility] PRN Reason: Protocol Last Admin: 07/08/17 12:34 Dose: 250 mls/hr Latanoprost (Xalatan Opht) 1 drop OD HS [facility] Last Admin: 07/07/17 21:46 Dose: 1 drop Multivitamins/Minerals (Therapeutic-M Tab) 1 tab PO DAILY [facility] Last Admin: 07/08/17 12:35 Dose: 1 tab Oxycodone/Acetaminophen (Percocet 5/325 Mg Tab) 1 tab PO Q4H PRN PRN Reason: Pain, moderate (4-7) Stop: 07/08/17 21:53 Last Admin: 07/08/17 04:11 Dose: 1 tab Sennosides (Senokot Tab) 17.2 mg PO HS [facility] Last Admin: 07/07/17 21:44 Dose: 17.2 mg Results - Vital Signs Recent Vital Signs: Last Vital Signs Temp 97.6 F 07/08/17 16:10 Pulse 74 07/08/17 16:10 Resp 20 07/08/17 16:10 BP 98/61 L 07/08/17 16:10 Pulse Ox 100 07/08/17 16:10 - Labs Result Diagrams: 07/08/17 14:30 07/08/17 14:30 Labs: Laboratory Results - last 24 hr 07/08/17 07/08/17 07/08/17 05:30 14:30 14:30 WBC 4.3 L RBC 2.61 L Hgb 8.6 L Hct 26.6 L MCV 102.0 H MCH 33.1 H MCHC 32.5 L RDW 16.0 H Plt Count 163 Sodium 132 Potassium 3.9 Chloride 101 Carbon Dioxide 33 H Anion Gap 2 L BUN 9 Creatinine 0.5 L Est GFR ( Amer) > 60 Est GFR (Non-Af Amer) > 60 Random Glucose 86 Calcium 8.5 Total Bilirubin 0.2 AST 16 ALT 35 Alkaline Phosphatase 65 Total Protein 4.2 L Albumin 2.2 L Globulin 2.1 L Albumin/Globulin Ratio 1.0 Procalcitonin < 0.05 L
[2017-07-08] MEDS: Magnesium Oxide 400 mg Tab UD PO SCH (21:01)
[2017-07-08] MEDS: Latanoprost 0.005% Opht SOUTION OD SCH (21:05)
[2017-07-08] MEDS: Enoxaparin 40 mg Syringe SC SCH (22:40)
[2017-07-09 06:37] LABS: ABG ALLEN TEST YES; ARTERIAL BLOOD GAS HCO3 33.6 mmol/L (21-28); ARTERIAL BLOOD GAS MODE 2LNC; ARTERIAL BLOOD GAS O2 CONTENT 13.3 ML/dL (15-23); ARTERIAL BLOOD GAS PH 7.47 (7.35-7.45); ARTERIAL BLOOD GAS PO2 58 mm/Hg (80-100); ARTERIAL BLOOD HGB O2 SAT 91.7 % (95.0-98.0); CARBOXYHEMOGLOBIN 2.1 % (0.5-1.5); HHB 4.9 % (0.0-5.0); METHEMOGLOBIN 1.3 % (0.0-3.0)
[2017-07-09] MEDS: Albuterol-Ipratrop 3 mg / 0.5 (3 ml) UD INH SCH ×3 (07:32→19:09)
[2017-07-09 08:59] LABS: BLOOD UREA NITROGEN 8 mg/dl (7-17); CARBON DIOXIDE 35 mmol/L (22-30); CHLORIDE 98 mmol/L (98-107); GFR AFRICAN-AMERICAN > 60; GLUCOSE,RANDOM 86 mg/dL (65-105); POTASSIUM 3.9 MMOL/L (3.6-5.0); SODIUM 137 mmol/l (132-148)
[2017-07-09] MEDS: Magnesium Oxide 400 mg Tab UD PO SCH ×2 (10:59→17:23)
[2017-07-09] MEDS: Multivitamin With Minerals Tab PO SCH (11:00)
[2017-07-09] MEDS: levoFLOXacin 750 mg in D5W 750 MG/150 ML BAG IVPB SCH (11:09)
[2017-07-09] MEDS ORDERED: Oxycodone/Acetaminophen 5/325 mg Tab PO PRN (13:26)
[2017-07-09 13:34] LABS: HEMATOCRIT 28.6 % (34.0-47.0); MEAN CELL VOLUME 100.4 fl (81.0-99.0); MEAN CORPUSCULAR HGB CONC 33.9 g/dL (33.0-37.0); RED CELL DISTRIBUTION WIDTH 16.1 % (11.5-14.5); WHITE BLOOD COUNT 3.9 K/uL (4.8-10.8)
--- NOTE | 2017-07-09 13:35 | CP.PCM.PN ---
Subjective - Date & Time of Evaluation Date of Evaluation: 07/09/17 Time of Evaluation: 22:22 - Subjective Subjective: Above noted Hbg 8.6 Pao2 52 Objective - Vital Signs/Intake and Output Vital Signs (last 24 hours): Temp Pulse Resp BP Pulse Ox 97.4 F L 81 19 116/70 95 07/09/17 07:52 07/09/17 10:58 07/09/17 07:52 07/09/17 10:58 07/09/17 07:52 - Medications Medications: Current Medications Acetaminophen (Tylenol 325mg Tab) 650 mg PO Q6 PRN PRN Reason: Pain, Mild (1-3) Acetazolamide (Diamox 250 Mg Tab) 250 mg PO BID [facility] Stop: 07/11/17 10:01 Last Admin: 07/09/17 11:05 Dose: 250 mg Albuterol/Ipratropium (Duoneb 3 Mg/0.5 Mg (3 Ml) Ud) 3 ml INH RQID [facility] Last Admin: 07/09/17 07:32 Dose: Not Given Ascorbic Acid (Vitamin C 500 Mg Tab) 500 mg PO DAILY [facility] Last Admin: 07/09/17 10:59 Dose: 500 mg Atorvastatin Calcium (Lipitor) 20 mg PO HS [facility] Last Admin: 07/08/17 21:01 Dose: 20 mg Carvedilol (Coreg) 6.25 mg PO Q12 [facility] Last Admin: 07/09/17 10:58 Dose: 6.25 mg Collagenase (Santyl) 1 applic TOP DAILY [facility] Last Admin: 07/08/17 09:55 Dose: 1 applic Enoxaparin Sodium (Lovenox) 40 mg SC QPM [facility] PRN Reason: Protocol Last Admin: 07/08/17 22:40 Dose: 40 mg Levofloxacin/Dextrose (Levaquin 750mg) 750 mg in 150 mls @ 100 mls/hr IVPB DAILY [facility] Last Admin: 07/09/17 11:09 Dose: 100 mls/hr Vancomycin HCl 1 gm/ Sodium (Chloride) 250 mls @ 250 mls/hr IVPB Q12H [facility] PRN Reason: Protocol Last Admin: 07/09/17 00:45 Dose: 250 mls/hr Latanoprost (Xalatan Opht) 1 drop OD HS [facility] Last Admin: 07/08/17 21:05 Dose: 1 drop Magnesium Oxide (Mag-Ox) 400 mg PO BID [facility] Last Admin: 07/09/17 10:59 Dose: 400 mg Multivitamins/Minerals (Therapeutic-M Tab) 1 tab PO DAILY [facility] Last Admin: 07/09/17 11:00 Dose: 1 tab Oxycodone/Acetaminophen (Percocet 5/325 Mg Tab) 1 tab PO Q4 PRN PRN Reason: Pain, severe (8-10) Stop: 07/12/17 13:27 Sennosides (Senokot Tab) 17.2 mg PO HS [facility] Last Admin: 07/08/17 22:40 Dose: 17.2 mg - Labs Labs: 07/08/17 14:30 07/09/17 05:45 PT 12.2 Seconds (9.8-13.1) 07/05/17 18:40 INR 1.1 (0.9-1.2) 07/05/17 18:40 APTT 29.6 Seconds (25.6-37.1) 07/05/17 18:40 - Respiratory Exam Respiratory Exam: NORMAL BREATHING PATTERN - Cardiovascular Exam Cardiovascular Exam: REGULAR RHYTHM - GI/Abdominal Exam GI & Abdominal Exam: Normal Bowel Sounds Assessment and Plan - Assessment and Plan (Free Text) Assessment: S/P R Hip THR wound infection Ortho ID Plastic ABX COPD Hypoxia Chronic? Pulmonary consult Metabolic alkalosis 2 to above Nephrology consult appreciated Anemia etiol? s/p THR repeat Hbg S/P NSTEMI HTN cadiomyopathy Cardiology Adj Rxn refusing therapy?? Seen by Psych
--- NOTE | 2017-07-09 14:23 | CP.PCM.PN ---
Subjective - Date & Time of Evaluation Date of Evaluation: 07/09/17 Time of Evaluation: 09:00 - Subjective Subjective: events noted iv rx in progress for OR monday Objective - Vital Signs/Intake and Output Vital Signs (last 24 hours): Temp Pulse Resp BP Pulse Ox 97.4 F L 81 19 116/70 95 07/09/17 07:52 07/09/17 10:58 07/09/17 07:52 07/09/17 10:58 07/09/17 07:52 - Medications Medications: Current Medications Acetaminophen (Tylenol 325mg Tab) 650 mg PO Q6 PRN PRN Reason: Pain, Mild (1-3) Acetazolamide (Diamox 250 Mg Tab) 250 mg PO BID [facility] Stop: 07/11/17 10:01 Last Admin: 07/09/17 11:05 Dose: 250 mg Albuterol/Ipratropium (Duoneb 3 Mg/0.5 Mg (3 Ml) Ud) 3 ml INH RQID [facility] Last Admin: 07/09/17 07:32 Dose: Not Given Ascorbic Acid (Vitamin C 500 Mg Tab) 500 mg PO DAILY [facility] Last Admin: 07/09/17 10:59 Dose: 500 mg Atorvastatin Calcium (Lipitor) 20 mg PO HS [facility] Last Admin: 07/08/17 21:01 Dose: 20 mg Carvedilol (Coreg) 6.25 mg PO Q12 [facility] Last Admin: 07/09/17 10:58 Dose: 6.25 mg Collagenase (Santyl) 1 applic TOP DAILY [facility] Last Admin: 07/08/17 09:55 Dose: 1 applic Enoxaparin Sodium (Lovenox) 40 mg SC QPM [facility] PRN Reason: Protocol Last Admin: 07/08/17 22:40 Dose: 40 mg Levofloxacin/Dextrose (Levaquin 750mg) 750 mg in 150 mls @ 100 mls/hr IVPB DAILY [facility] Last Admin: 07/09/17 11:09 Dose: 100 mls/hr Vancomycin HCl 1 gm/ Sodium (Chloride) 250 mls @ 250 mls/hr IVPB Q12H [facility] PRN Reason: Protocol Last Admin: 07/09/17 13:15 Dose: 250 mls/hr Latanoprost (Xalatan Opht) 1 drop OD HS [facility] Last Admin: 07/08/17 21:05 Dose: 1 drop Magnesium Oxide (Mag-Ox) 400 mg PO BID [facility] Last Admin: 07/09/17 10:59 Dose: 400 mg Multivitamins/Minerals (Therapeutic-M Tab) 1 tab PO DAILY [facility] Last Admin: 07/09/17 11:00 Dose: 1 tab Oxycodone/Acetaminophen (Percocet 5/325 Mg Tab) 1 tab PO Q4 PRN PRN Reason: Pain, severe (8-10) Stop: 07/12/17 13:27 Last Admin: 07/09/17 14:13 Dose: 1 tab Sennosides (Senokot Tab) 17.2 mg PO HS [facility] Last Admin: 07/08/17 22:40 Dose: 17.2 mg - Labs Labs: 07/09/17 11:37 07/09/17 05:45 PT 12.2 Seconds (9.8-13.1) 07/05/17 18:40 INR 1.1 (0.9-1.2) 07/05/17 18:40 APTT 29.6 Seconds (25.6-37.1) 07/05/17 18:40 - Constitutional Appears: Non-toxic, Chronically Ill - Head Exam Head Exam: NORMOCEPHALIC - Eye Exam Eye Exam: absent: Scleral icterus - ENT Exam ENT Exam: Mucous Membranes Dry - Neck Exam Neck Exam: absent: Lymphadenopathy - Respiratory Exam Respiratory Exam: Decreased Breath Sounds - Cardiovascular Exam Cardiovascular Exam: REGULAR RHYTHM - GI/Abdominal Exam GI & Abdominal Exam: Distended, Soft - Rectal Exam Rectal Exam: Deferred - Exam Exam: NORMAL INSPECTION - Extremities Exam Extremities Exam: absent: Pedal Edema - Back Exam Back Exam: absent: CVA tenderness (L), CVA tenderness (R) - Neurological Exam Neurological Exam: Alert, Awake, Oriented x3 Assessment and Plan (1) Cellulitis Status: Acute - Assessment and Plan (Free Text) Assessment: for or dr sahu
[2017-07-09] MEDS ORDERED: Sodium Chloride 0.9% 250 ML IV ONE (16:29)
--- NOTE | 2017-07-09 16:34 | CP.PCM.PN ---
Subjective - Date & Time of Evaluation Date of Evaluation: 07/09/17 Time of Evaluation: 16:31 - Subjective Subjective: Follow up Nephrology Consultation: Assessment: Stable Metabolic alkalosis with chronic respiratory acidosis (Co2 retention) due to CHF /COPD severe systolic CHF EF <20%, HTN, COPD Rt hip cellulitis Hyponatremia Hypomagnesemia Plan supplement Magnesium as ordered. avoid hypotonic fluids since she has mild hyponatremia and also severe CHF management of primary respi acidosis due to COPD/CHF as per primary team will check urine Chloride to assess saline responsive versus resistant alkalosis will start on diamox 250 mg/bid for few days (d/c once serum bicarb <30). hesistant to give IVF due to severe CHF Further work up/management as per primary team Thanks for allowing me to participate in care of your patient. Will follow patient with you. Please call if any Qs Dr Samuel Joaquin Office: [phone] Chief Complaint; I am going for surgery Rt hip reason for consult: alkalosis HPI: Pt is a 82 y/o F with hx of severe systolic CHF EF <20%, HTN, COPD is admitted with Rt hip cellulitis and planned for surgery renal consult for elevated bicarb which was noticed on blood test Denies chest pain, palpitation, shortness of breath, leg swelling Denies blood or bubbles in urine mostly has low BP. Physical Examination: General Appearance: Comfortable, in no acute respiratory distress, co-operative . irritable/upset Vitals reviewed and noted as below Head; Atraumatic, normocephalic ENT: no ulcers no thrush. Tongue is midline. Oropharynx: no rash or ulcers. EYES: Pupils are equal, round and reactive to light accommodation. Eye muscles and extraocular movement intact. Sclera is anicteric. Neck; supple no lymphadenopathy, no thyromegaly or bruit Lungs: Normal respiratory rate/effort. Breath sounds bilateral equal and has basal crackles Heart: Normal rate. s1s2 normal. No rub or gallop. Extremities: no edema. No varicose veins Neurological: Patient is alert, awake and oriented to person, place and time. No focal deficit. Strength bilateral appropriate and equal Skin: Warm and dry. Normal turgor. No rash. Palpitation: Normal elasticity for age Abdomen: Abdomen is soft. Bowel sounds +. There is no abdominal tenderness, no guarding/rigidity no organomegaly Psych: normal insight and normal affect/mood MSK: Rt hip joint tenderness and swelling with redness. Digits and nails normal , no deformity : kidney or bladder not palpable Labs/imaging/EKG reviewed. Past medical history, past surgical history, family history, social history, allergy reviewed and noted as below Family hx: no hx of CKD. Rest non-contributory VBG 7.39 with pCO2: 62 echo: LVEF <20% CXR: small effusion BNP elevated 07/09: ABG 7.57/ pCO2: 50 Objective - Vital Signs/Intake and Output Vital Signs (last 24 hours): Temp Pulse Resp BP Pulse Ox 97.6 F 74 18 87/53 L 97 07/09/17 15:44 07/09/17 15:44 07/09/17 15:44 07/09/17 15:44 07/09/17 15:44 - Medications Medications: Current Medications Acetaminophen (Tylenol 325mg Tab) 650 mg PO Q6 PRN PRN Reason: Pain, Mild (1-3) Acetazolamide (Diamox 250 Mg Tab) 250 mg PO BID [facility] Stop: 07/11/17 10:01 Last Admin: 07/09/17 11:05 Dose: 250 mg Albuterol/Ipratropium (Duoneb 3 Mg/0.5 Mg (3 Ml) Ud) 3 ml INH RQID [facility] Last Admin: 07/09/17 15:40 Dose: Not Given Ascorbic Acid (Vitamin C 500 Mg Tab) 500 mg PO DAILY [facility] Last Admin: 07/09/17 10:59 Dose: 500 mg Atorvastatin Calcium (Lipitor) 20 mg PO HS [facility] Last Admin: 07/08/17 21:01 Dose: 20 mg Carvedilol (Coreg) 6.25 mg PO Q12 [facility] Last Admin: 07/09/17 10:58 Dose: 6.25 mg Collagenase (Santyl) 1 applic TOP DAILY [facility] Last Admin: 07/08/17 09:55 Dose: 1 applic Enoxaparin Sodium (Lovenox) 40 mg SC QPM [facility] PRN Reason: Protocol Last Admin: 07/08/17 22:40 Dose: 40 mg Levofloxacin/Dextrose (Levaquin 750mg) 750 mg in 150 mls @ 100 mls/hr IVPB DAILY [facility] Last Admin: 07/09/17 11:09 Dose: 100 mls/hr Vancomycin HCl 1 gm/ Sodium (Chloride) 250 mls @ 166.667 mls/hr IVPB Q24H [facility] PRN Reason: Protocol Sodium Chloride (Sodium Chloride 0.9%) 250 mls @ 250 mls/hr IV .Q1H [facility] Stop: 07/09/17 17:28 Latanoprost (Xalatan Opht) 1 drop OD HS [facility] Last Admin: 07/08/17 21:05 Dose: 1 drop Magnesium Oxide (Mag-Ox) 400 mg PO BID [facility] Last Admin: 07/09/17 10:59 Dose: 400 mg Multivitamins/Minerals (Therapeutic-M Tab) 1 tab PO DAILY [facility] Last Admin: 07/09/17 11:00 Dose: 1 tab Oxycodone/Acetaminophen (Percocet 5/325 Mg Tab) 1 tab PO Q4 PRN PRN Reason: Pain, severe (8-10) Stop: 07/12/17 13:27 Last Admin: 07/09/17 14:13 Dose: 1 tab Sennosides (Senokot Tab) 17.2 mg PO HS [facility] Last Admin: 07/08/17 22:40 Dose: 17.2 mg - Labs Labs: 07/09/17 11:37 07/09/17 05:45 PT 12.2 Seconds (9.8-13.1) 07/05/17 18:40 INR 1.1 (0.9-1.2) 07/05/17 18:40 APTT 29.6 Seconds (25.6-37.1) 07/05/17 18:40
--- NOTE | 2017-07-09 16:53 | PCM.RRT ---
FRAME ALIGNER Nurse Assessment - Ventilator Settings FIO2 (% Oxygen): 97 I.Reason for FRAME ALIGNER - A) Acute Change in Patient: Subjective: FRAME ALIGNER Start Time: 4:25pm FRAME ALIGNER Reason: Hypotension Subjective: FRAME ALIGNER was called by RN because patient's blood pressure was reported low. Pt denies CP/SOB Objective: BP: 87/53, Hr 74, T 98.6, O2 Sat 96% on 2L NC General: Pt was found lying in bed, alert and oriented; appears comfortable Cardiac: RRR, normal S1, S2, no murmurs, No JVD Lung: CTABL, no crackles, no signs of respiratory distress Extremities: Right hip incision + purulent drainage, surrounding erythema and warmth. Good dorsal pedis pulses +2 BL FRAME ALIGNER Actions: Bolus 250ml NS, Wound Cx BP after fluid bolus: 88/50 Assessment and Plan: Pt is an 82 y/o female with hx of CHF (latest EF 20%) s/p hip replacement presenting with hypotension. Plan: Pt has low BP at baseline due to reduced cardiac output. Pt had good mentation and was asymptomatic at presentation. Bolus of fluid administered. Pt is scheduled for OR tomorrow for wound drainage. F/U Wound Cx FRAME ALIGNER MD: Dr. Murphy FRAME ALIGNER End Time: 4:52pm
[2017-07-09] MEDS: Enoxaparin 40 mg Syringe SC SCH (17:00)
[2017-07-09] MEDS: Sodium Chloride 0.9% 1,000 ML IV SCH (17:00)
[2017-07-09] MEDS: Santyl Collagenase OINTMENT TOP SCH (20:31)
[2017-07-09] MEDS: Latanoprost 0.005% Opht SOUTION OD SCH (21:17)
[2017-07-10] MEDS: Sodium Chloride 0.9% 1,000 ML IV SCH ×2 (03:45→12:29)
[2017-07-10] MEDS: Albuterol-Ipratrop 3 mg / 0.5 (3 ml) UD INH SCH ×3 (07:31→19:05)
[2017-07-10] MEDS: levoFLOXacin 750 mg in D5W 750 MG/150 ML BAG IVPB SCH (08:48)
[2017-07-10] MEDS: Magnesium Oxide 400 mg Tab UD PO SCH ×2 (09:01→17:13)
--- NOTE | 2017-07-10 09:02 | CP.PCM.CON ---
History of Present Illness - History of Present Illness History of Present Illness: Asked to see this 82 year old female, a former cigarette smoker, who was originally seen about 4 weeks ago when she was admitted with a right hip fracture as a result of a fall at home. She was mildly hypoxemic on presentation , but CTA of the lungs did not reveal any pulmonary embolism. A coincidental finding on CT scan was the finding of a pattern of centrilobular emphysema. She was treated with bronchodilators and underwent surgical repair without complications. She did spend some time here in [facility] but was ultimately discharged to a longer care rehab facility. She was found to have an apparent wound infection at the operative site and was transferred here for definitive therapy. Past Patient History - Past Medical History & Family History Past Medical History?: Yes Pertinent Family History: COPD and CAD. - Past Social History Smoking Status: Former Smoker Chewing Tobacco Use: No Cigar Use: No Alcohol: None Drugs: Denies Home Situation {Lives}: Alone - CARDIAC Hx Hypertension: Yes - PULMONARY Hx Emphysema: Yes - NEUROLOGICAL Hx Neurological Disorder: No - HEENT Hx Glaucoma: Yes Hx Macular Degeneration: Yes - RENAL Hx Chronic Kidney Disease: No - ENDOCRINE/METABOLIC Hx Endocrine Disorders: No - HEMATOLOGICAL/ONCOLOGICAL Hx Blood Disorders: No Hx Human Immunodeficiency Virus (HIV): No - INTEGUMENTARY Other/Comment: Skin graft LLE in remote past. - MUSCULOSKELETAL/RHEUMATOLOGICAL Hx Falls: Yes - GASTROINTESTINAL Hx Gastrointestinal Disorders: No - GENITOURINARY/GYNECOLOGICAL Hx Genitourinary Disorders: No - PSYCHIATRIC Hx Psychophysiologic Disorder: No Hx Substance Use: No - SURGICAL HISTORY Hx Cholecystectomy: Yes Hx Open Reduction Internal Fixation: Yes (right hip) Other/Comment: ovarian cystectomy. - ANESTHESIA Hx Anesthesia: Yes Hx Anesthesia Reactions: No Meds Allergies/Adverse Reactions: Allergies Allergy/AdvReac Type Severity Reaction Status Date / Time Penicillins Allergy SWELLING Verified 07/05/17 17:15 - Medications Medications: Current Medications Acetaminophen (Tylenol 325mg Tab) 650 mg PO Q6 PRN PRN Reason: Pain, Mild (1-3) Last Admin: 07/10/17 00:00 Dose: 650 mg Acetazolamide (Diamox 250 Mg Tab) 250 mg PO BID [facility] Stop: 07/11/17 10:01 Last Admin: 07/09/17 17:23 Dose: Not Given Albuterol/Ipratropium (Duoneb 3 Mg/0.5 Mg (3 Ml) Ud) 3 ml INH RQID [facility] Last Admin: 07/10/17 07:31 Dose: Not Given Ascorbic Acid (Vitamin C 500 Mg Tab) 500 mg PO DAILY [facility] Last Admin: 07/09/17 10:59 Dose: 500 mg Atorvastatin Calcium (Lipitor) 20 mg PO HS [facility] Last Admin: 07/09/17 21:15 Dose: 20 mg Collagenase (Santyl) 1 applic TOP DAILY [facility] Last Admin: 07/09/17 20:31 Dose: 1 applic Levofloxacin/Dextrose (Levaquin 750mg) 750 mg in 150 mls @ 100 mls/hr IVPB DAILY [facility] Last Admin: 07/10/17 08:48 Dose: 100 mls/hr Vancomycin HCl 1 gm/ Sodium (Chloride) 250 mls @ 166.667 mls/hr IVPB Q24H [facility] PRN Reason: Protocol Last Admin: 07/09/17 17:29 Dose: Not Given Sodium Chloride (Sodium Chloride 0.9%) 1,000 mls @ 100 mls/hr IV .Q10H [facility] Stop: 07/10/17 17:36 Last Admin: 07/10/17 03:45 Dose: 100 mls/hr Latanoprost (Xalatan Opht) 1 drop OD HS [facility] Last Admin: 07/09/17 21:17 Dose: 1 drop Magnesium Oxide (Mag-Ox) 400 mg PO BID [facility] Last Admin: 07/09/17 17:23 Dose: 400 mg Multivitamins/Minerals (Therapeutic-M Tab) 1 tab PO DAILY [facility] Last Admin: 07/09/17 11:00 Dose: 1 tab Sennosides (Senokot Tab) 17.2 mg PO HS [facility] Last Admin: 07/09/17 21:16 Dose: 17.2 mg Physical Exam - Additional Findings Additional findings: Awake, alert, pleasant and cooperative. Right hip operative site is erythematous, warm to touch and swollen. Pulses in both feet are equally diminished, but present. No calf tenderness, venous dilatation, Marcial's sign or cyanosis. Neck is supple and trachea midline, good carotid impulse, no bruits. Pharynx is pink and moist w/po exudate. No palpable cervical or axillary adenopathy. No dullness on percussion of the anterior chest wall. Equal expansion. Breath sounds are diminished bilaterally w/o audible wheezing or bronchial breathing. Rare dry rales in the bases, no rhonchi or rubs. heart sounds are distant, rhythm is regular, no murmur heard. Abdomen is soft and non-tender, bowel sounds are hypo. Results - Vital Signs Recent Vital Signs: Last Vital Signs Temp 97.6 F 07/10/17 08:09 Pulse 70 07/10/17 08:09 Resp 20 07/10/17 08:09 BP 100/58 L 07/10/17 08:09 Pulse Ox 100 07/10/17 08:09 - Labs Result Diagrams: 07/09/17 11:37 07/09/17 05:45 Labs: Laboratory Results - last 24 hr 07/09/17 07/09/17 07/09/17 05:00 05:45 11:37 WBC 3.9 L RBC 2.84 L Hgb 9.7 L Hct 28.6 L MCV 100.4 H MCH 34.0 H MCHC 33.9 RDW 16.1 H Plt Count 179 Sodium 137 Potassium 3.9 Chloride 98 Carbon Dioxide 35 H Anion Gap 8 L BUN 8 Creatinine 0.5 L Est GFR ( Amer) > 60 Est GFR (Non-Af Amer) > 60 POC Glucose (mg/dL) Random Glucose 86 Calcium 9.0 Vancomycin Trough 17.1 H Blood Type Antibody Screen Crossmatch BBK History Checked 07/09/17 07/09/17 13:16 16:26 WBC RBC Hgb Hct MCV MCH MCHC RDW Plt Count Sodium Potassium Chloride Carbon Dioxide Anion Gap BUN Creatinine Est GFR ( Amer) Est GFR (Non-Af Amer) POC Glucose (mg/dL) 148 H Random Glucose Calcium Vancomycin Trough Blood Type B POSITIVE Antibody Screen Negative Crossmatch See Detail BBK History Checked Patient has bt Assessment & Plan (1) Surgical site infection Status: Acute Priority: High (2) Pulmonary emphysema determined by X-ray Status: Chronic Priority: High Comment: Needs to continue bronchodilator therapy (patient needs strong suggestion to cooperate with treatments). (3) Hypercapnia Status: Acute Priority: High Comment: May be a combination of underlying chronic lung disease with superimposed opioid analgesic respiratory depression. - Assessment and Plan (Free Text) Plan: With adequate prescautions she would be considered 'cleared' from a pulmonary standpoint. On her prior surgery she did remain intubated and mechanically ventilated afterwards. Today's surgery would hopefully be a significantly lesser procedure than before, but I would recommend overnight observation in the ICU as a minimal precaution post-operatively. I would switch her to NPPV with High-Flow canula at this time using 28% oxygen at 20 LPM. - Date & Time Date: 07/10/17 Time: 09:04
[2017-07-10] MEDS: Multivitamin With Minerals Tab PO SCH (09:03)
--- NOTE | 2017-07-10 09:24 | CP.PCM.PN ---
Subjective - Date & Time of Evaluation Date of Evaluation: 07/10/17 Time of Evaluation: 08:45 - Subjective Subjective: NO COMPLAINTS OF CHEST PAIN OR SOB FEELS GOOD Objective - Vital Signs/Intake and Output Vital Signs (last 24 hours): Temp Pulse Resp BP Pulse Ox 97.6 F 70 20 100/58 L 100 07/10/17 08:09 07/10/17 08:09 07/10/17 08:09 07/10/17 08:09 07/10/17 08:09 - Medications Medications: Current Medications Acetaminophen (Tylenol 325mg Tab) 650 mg PO Q6 PRN PRN Reason: Pain, Mild (1-3) Last Admin: 07/10/17 00:00 Dose: 650 mg Acetazolamide (Diamox 250 Mg Tab) 250 mg PO BID [facility] Stop: 07/11/17 10:01 Last Admin: 07/09/17 17:23 Dose: Not Given Albuterol/Ipratropium (Duoneb 3 Mg/0.5 Mg (3 Ml) Ud) 3 ml INH RQID [facility] Last Admin: 07/10/17 07:31 Dose: Not Given Ascorbic Acid (Vitamin C 500 Mg Tab) 500 mg PO DAILY [facility] Last Admin: 07/10/17 09:03 Dose: Not Given Atorvastatin Calcium (Lipitor) 20 mg PO HS [facility] Last Admin: 07/09/17 21:15 Dose: 20 mg Collagenase (Santyl) 1 applic TOP DAILY [facility] Last Admin: 07/09/17 20:31 Dose: 1 applic Levofloxacin/Dextrose (Levaquin 750mg) 750 mg in 150 mls @ 100 mls/hr IVPB DAILY [facility] Last Admin: 07/10/17 08:48 Dose: 100 mls/hr Vancomycin HCl 1 gm/ Sodium (Chloride) 250 mls @ 166.667 mls/hr IVPB Q24H [facility] PRN Reason: Protocol Last Admin: 07/09/17 17:29 Dose: Not Given Sodium Chloride (Sodium Chloride 0.9%) 1,000 mls @ 100 mls/hr IV .Q10H [facility] Stop: 07/10/17 17:36 Last Admin: 07/10/17 03:45 Dose: 100 mls/hr Latanoprost (Xalatan Opht) 1 drop OD HS [facility] Last Admin: 07/09/17 21:17 Dose: 1 drop Magnesium Oxide (Mag-Ox) 400 mg PO BID [facility] Last Admin: 07/10/17 09:01 Dose: Not Given Multivitamins/Minerals (Therapeutic-M Tab) 1 tab PO DAILY [facility] Last Admin: 07/10/17 09:03 Dose: Not Given Sennosides (Senokot Tab) 17.2 mg PO HS [facility] Last Admin: 07/09/17 21:16 Dose: 17.2 mg - Labs Labs: 07/09/17 11:37 07/09/17 05:45 PT 12.2 Seconds (9.8-13.1) 07/05/17 18:40 INR 1.1 (0.9-1.2) 07/05/17 18:40 APTT 29.6 Seconds (25.6-37.1) 07/05/17 18:40 - Respiratory Exam Respiratory Exam: Clear to Ausculation Bilateral - Cardiovascular Exam Cardiovascular Exam: REGULAR RHYTHM, +S1, +S2 - Additional Findings Additional findings: BLOOD PRESSURE READINGS WERE MILDLY LOW YESTERDAY AND CARVEDILOL AND PERCOCET WERE STOPPED AND IV FLUIDS WERE GIVEN AND THE BLOOD PRESSURE READING ARE BETTER TODAY Assessment and Plan - Assessment and Plan (Free Text) Assessment: S/P RIGHT THR REPLACEMENT THREE WEEKS AGO WITH NEW EXCORIATION HYPERTENSION CARDIOMYOPATHY Plan: FOR SURGICAL WOUND SITE DEBRIDEMENT TODAY
--- NOTE | 2017-07-10 09:49 | CP.PCM.PN ---
Subjective - Date & Time of Evaluation Date of Evaluation: 07/10/17 Time of Evaluation: 09:47 - Subjective Subjective: Patient complains of hip pain. No new complaints. Objective - Vital Signs/Intake and Output Vital Signs (last 24 hours): Temp Pulse Resp BP Pulse Ox 97.6 F 70 20 100/58 L 100 07/10/17 08:09 07/10/17 08:09 07/10/17 08:09 07/10/17 08:09 07/10/17 08:09 - Medications Medications: Current Medications Acetaminophen (Tylenol 325mg Tab) 650 mg PO Q6 PRN PRN Reason: Pain, Mild (1-3) Last Admin: 07/10/17 00:00 Dose: 650 mg Acetazolamide (Diamox 250 Mg Tab) 250 mg PO BID [facility] Stop: 07/11/17 10:01 Last Admin: 07/09/17 17:23 Dose: Not Given Albuterol/Ipratropium (Duoneb 3 Mg/0.5 Mg (3 Ml) Ud) 3 ml INH RQID [facility] Last Admin: 07/10/17 07:31 Dose: Not Given Ascorbic Acid (Vitamin C 500 Mg Tab) 500 mg PO DAILY [facility] Last Admin: 07/10/17 09:03 Dose: Not Given Atorvastatin Calcium (Lipitor) 20 mg PO HS [facility] Last Admin: 07/09/17 21:15 Dose: 20 mg Collagenase (Santyl) 1 applic TOP DAILY [facility] Last Admin: 07/09/17 20:31 Dose: 1 applic Levofloxacin/Dextrose (Levaquin 750mg) 750 mg in 150 mls @ 100 mls/hr IVPB DAILY [facility] Last Admin: 07/10/17 08:48 Dose: 100 mls/hr Vancomycin HCl 1 gm/ Sodium (Chloride) 250 mls @ 166.667 mls/hr IVPB Q24H [facility] PRN Reason: Protocol Last Admin: 07/09/17 17:29 Dose: Not Given Sodium Chloride (Sodium Chloride 0.9%) 1,000 mls @ 100 mls/hr IV .Q10H [facility] Stop: 07/10/17 17:36 Last Admin: 07/10/17 03:45 Dose: 100 mls/hr Latanoprost (Xalatan Opht) 1 drop OD HS [facility] Last Admin: 07/09/17 21:17 Dose: 1 drop Magnesium Oxide (Mag-Ox) 400 mg PO BID [facility] Last Admin: 07/10/17 09:01 Dose: Not Given Multivitamins/Minerals (Therapeutic-M Tab) 1 tab PO DAILY [facility] Last Admin: 07/10/17 09:03 Dose: Not Given Sennosides (Senokot Tab) 17.2 mg PO HS [facility] Last Admin: 07/09/17 21:16 Dose: 17.2 mg - Labs Labs: 07/09/17 11:37 07/09/17 05:45 PT 12.2 Seconds (9.8-13.1) 07/05/17 18:40 INR 1.1 (0.9-1.2) 07/05/17 18:40 APTT 29.6 Seconds (25.6-37.1) 07/05/17 18:40 - Extremities Exam Additional comments: Right hip: still erythematous around wound, some serous drainage from inferior aspect of wound. No change to scab area. No pain with active or passive ROM of right hip to suggest deep infection. Assessment and Plan (1) Cellulitis Assessment & Plan: Patient seen and examined by Dr. Gil no suspicion of deep infection superficial erythema and drainage noted for OR today for wound debridement and wound vac application NPO Status: Acute
[2017-07-10] MEDS: Santyl Collagenase OINTMENT TOP SCH (10:05)
--- NOTE | 2017-07-10 10:31 | CP.PCM.PN ---
Subjective - Date & Time of Evaluation Date of Evaluation: 07/10/17 Time of Evaluation: 10:29 - Subjective Subjective: Patient in bed appears to be comfortable Vital sign noted to be stable. Lab review CO2 still elevated consistent with metabolic alkalosis continue Diamox. Kidney function stable Physical exam Chest no rales Heart no rubs Abdomen soft Extremity no edema Patient is going for hip surgery. Objective - Vital Signs/Intake and Output Vital Signs (last 24 hours): Temp Pulse Resp BP Pulse Ox 97.6 F 70 20 100/58 L 100 07/10/17 08:09 07/10/17 08:09 07/10/17 08:09 07/10/17 08:09 07/10/17 08:09 - Medications Medications: Current Medications Acetaminophen (Tylenol 325mg Tab) 650 mg PO Q6 PRN PRN Reason: Pain, Mild (1-3) Last Admin: 07/10/17 00:00 Dose: 650 mg Acetazolamide (Diamox 250 Mg Tab) 250 mg PO BID [facility] Stop: 07/11/17 10:01 Last Admin: 07/10/17 10:05 Dose: Not Given Albuterol/Ipratropium (Duoneb 3 Mg/0.5 Mg (3 Ml) Ud) 3 ml INH RQID [facility] Last Admin: 07/10/17 07:31 Dose: Not Given Ascorbic Acid (Vitamin C 500 Mg Tab) 500 mg PO DAILY [facility] Last Admin: 07/10/17 09:03 Dose: Not Given Atorvastatin Calcium (Lipitor) 20 mg PO HS [facility] Last Admin: 07/09/17 21:15 Dose: 20 mg Collagenase (Santyl) 1 applic TOP DAILY [facility] Last Admin: 07/10/17 10:05 Dose: Not Given Levofloxacin/Dextrose (Levaquin 750mg) 750 mg in 150 mls @ 100 mls/hr IVPB DAILY [facility] Last Admin: 07/10/17 08:48 Dose: 100 mls/hr Vancomycin HCl 1 gm/ Sodium (Chloride) 250 mls @ 166.667 mls/hr IVPB Q24H [facility] PRN Reason: Protocol Last Admin: 07/09/17 17:29 Dose: Not Given Sodium Chloride (Sodium Chloride 0.9%) 1,000 mls @ 100 mls/hr IV .Q10H [facility] Stop: 07/10/17 17:36 Last Admin: 07/10/17 03:45 Dose: 100 mls/hr Latanoprost (Xalatan Opht) 1 drop OD HS [facility] Last Admin: 07/09/17 21:17 Dose: 1 drop Magnesium Oxide (Mag-Ox) 400 mg PO BID [facility] Last Admin: 07/10/17 09:01 Dose: Not Given Multivitamins/Minerals (Therapeutic-M Tab) 1 tab PO DAILY [facility] Last Admin: 07/10/17 09:03 Dose: Not Given Sennosides (Senokot Tab) 17.2 mg PO HS [facility] Last Admin: 07/09/17 21:16 Dose: 17.2 mg - Labs Labs: 07/09/17 11:37 07/09/17 05:45 PT 12.2 Seconds (9.8-13.1) 07/05/17 18:40 INR 1.1 (0.9-1.2) 07/05/17 18:40 APTT 29.6 Seconds (25.6-37.1) 07/05/17 18:40
--- NOTE | 2017-07-10 12:41 | CP.PCM.PN ---
Subjective - Date & Time of Evaluation Date of Evaluation: 07/10/17 Time of Evaluation: 06:00 - Subjective Subjective: IV rx in progress DR Martinez on board for OR / washout Objective - Vital Signs/Intake and Output Vital Signs (last 24 hours): Temp Pulse Resp BP Pulse Ox 97.6 F 70 20 100/58 L 100 07/10/17 08:09 07/10/17 08:09 07/10/17 08:09 07/10/17 08:09 07/10/17 08:09 - Medications Medications: Current Medications Acetaminophen (Tylenol 325mg Tab) 650 mg PO Q6 PRN PRN Reason: Pain, Mild (1-3) Last Admin: 07/10/17 00:00 Dose: 650 mg Acetazolamide (Diamox 250 Mg Tab) 250 mg PO BID [facility] Stop: 07/11/17 10:01 Last Admin: 07/10/17 10:05 Dose: Not Given Albuterol/Ipratropium (Duoneb 3 Mg/0.5 Mg (3 Ml) Ud) 3 ml INH RQID [facility] Last Admin: 07/10/17 07:31 Dose: Not Given Ascorbic Acid (Vitamin C 500 Mg Tab) 500 mg PO DAILY [facility] Last Admin: 07/10/17 09:03 Dose: Not Given Atorvastatin Calcium (Lipitor) 20 mg PO HS [facility] Last Admin: 07/09/17 21:15 Dose: 20 mg Collagenase (Santyl) 1 applic TOP DAILY [facility] Last Admin: 07/10/17 10:05 Dose: Not Given Levofloxacin/Dextrose (Levaquin 750mg) 750 mg in 150 mls @ 100 mls/hr IVPB DAILY [facility] Last Admin: 07/10/17 08:48 Dose: 100 mls/hr Vancomycin HCl 1 gm/ Sodium (Chloride) 250 mls @ 166.667 mls/hr IVPB Q24H [facility] PRN Reason: Protocol Last Admin: 07/09/17 17:29 Dose: Not Given Sodium Chloride (Sodium Chloride 0.9%) 1,000 mls @ 100 mls/hr IV .Q10H [facility] Stop: 07/10/17 17:36 Last Admin: 07/10/17 12:29 Dose: 100 mls/hr Latanoprost (Xalatan Opht) 1 drop OD HS [facility] Last Admin: 07/09/17 21:17 Dose: 1 drop Magnesium Oxide (Mag-Ox) 400 mg PO BID [facility] Last Admin: 07/10/17 09:01 Dose: Not Given Multivitamins/Minerals (Therapeutic-M Tab) 1 tab PO DAILY [facility] Last Admin: 07/10/17 09:03 Dose: Not Given Sennosides (Senokot Tab) 17.2 mg PO HS [facility] Last Admin: 07/09/17 21:16 Dose: 17.2 mg - Labs Labs: 07/09/17 11:37 07/09/17 05:45 PT 12.2 Seconds (9.8-13.1) 07/05/17 18:40 INR 1.1 (0.9-1.2) 07/05/17 18:40 APTT 29.6 Seconds (25.6-37.1) 07/05/17 18:40 - Constitutional Appears: Non-toxic, Chronically Ill - Head Exam Head Exam: NORMOCEPHALIC - Eye Exam Eye Exam: absent: Scleral icterus - ENT Exam ENT Exam: Mucous Membranes Dry - Neck Exam Neck Exam: absent: Lymphadenopathy - Respiratory Exam Respiratory Exam: Decreased Breath Sounds Assessment and Plan (1) Cellulitis Status: Acute
[2017-07-10] MEDS ORDERED: Rocuronium 10 mg/ml (5 ml) ONE (14:07)
[2017-07-10] MEDS ORDERED: Succinylcholine 200 mg/10 ml Inj IV ONE (14:07)
[2017-07-10] MEDS ORDERED: Etomidate 20 mg/10ml Inj IV ONE (14:08)
[2017-07-10] MEDS ORDERED: Lidocaine 4% (Laryng-O-Jet) Kit MM ONE (14:08)
[2017-07-10] MEDS ORDERED: Lidocaine 2% MPF (5 ml) Inj ONE (14:08)
[2017-07-10] MEDS ORDERED: Phenylephrine 10 mg/ml Inj ONE (14:11)
[2017-07-10] MEDS ORDERED: Calcium Chloride 1000 mg/10 ml Syringe IV ONE (14:11)
[2017-07-10] MEDS ORDERED: Absorbable Gelatin Sponge Size 100 ONE (14:13)
[2017-07-10] MEDS ORDERED: Thrombin Topical 5,000 IU Spray Kit ONE (14:13)
[2017-07-10] MEDS ORDERED: ceFAZolin IV 1 gm in Dextrose 0 GM/0 ML BAG IVPB ONE (14:13)
[2017-07-10] MEDS ORDERED: Bacitracin Ointment 30 GM TUBE ONE (14:13)
[2017-07-10] MEDS ORDERED: Bupivacaine 0.5% Inj(30mL) ONE (14:13)
[2017-07-10] MEDS ORDERED: Lidocaine 1% Inj (20ml) ONE (14:13)
[2017-07-10 15:17] LABS: HEMATOCRIT 30.4 % (34.0-47.0); MEAN CELL VOLUME 103.2 fl (81.0-99.0); MEAN CORPUSCULAR HEMOGLOBIN 32.8 pg (27.0-31.0); MEAN CORPUSCULAR HGB CONC 31.8 g/dL (33.0-37.0); RED CELL DISTRIBUTION WIDTH 16.8 % (11.5-14.5); WHITE BLOOD COUNT 3.5 K/uL (4.8-10.8)
[2017-07-10 15:23] LABS: ALKALINE PHOSPHATASE 67 U/L (38-126); ALT/SGPT 31 U/L (9-52); AST/SGOT 16 U/L (14-36); BILIRUBIN,TOTAL 0.2 mg/dl (0.2-1.3); BLOOD UREA NITROGEN 8 mg/dl (7-17); CALCIUM 8.7 mg/dL (8.4-10.2); CARBON DIOXIDE 28 mmol/L (22-30); CHLORIDE 105 mmol/L (98-107); GFR AFRICAN-AMERICAN > 60; GLUCOSE,RANDOM 86 mg/dL (65-105); MAGNESIUM 1.4 MG/DL (1.6-2.3); POTASSIUM 3.9 MMOL/L (3.6-5.0); SODIUM 138 mmol/l (132-148); TOTAL PROTEIN 4.5 G/DL (6.3-8.2)
[2017-07-10] MEDS ORDERED: Ropivacaine 0.5% 30ML IV ONE (15:45)
[2017-07-10] MEDS ORDERED: Lactated Ringer's 1,000 ML IV ONE (16:20)
[2017-07-10] MEDS ORDERED: Sevoflurane - Inhalation Anesthetic Liq (250 ml) ONE (16:51)
[2017-07-10] MEDS ORDERED: Iohexol 300 100 ML IJ ONE (17:01)
[2017-07-10] MEDS ORDERED: Iohexol 300 10 ML ONE (17:01)
--- NOTE | 2017-07-10 17:13 | CP.PCM.PN ---
Subjective - Date & Time of Evaluation Date of Evaluation: 07/10/17 Time of Evaluation: 22:22 - Subjective Subjective: Above noted Pulmonary note appreciated Objective - Vital Signs/Intake and Output Vital Signs (last 24 hours): Temp Pulse Resp BP Pulse Ox 97.6 F 70 20 100/58 L 100 07/10/17 08:09 07/10/17 08:09 07/10/17 15:35 07/10/17 08:09 07/10/17 08:09 - Medications Medications: Current Medications Acetaminophen (Tylenol 325mg Tab) 650 mg PO Q6 PRN PRN Reason: Pain, Mild (1-3) Last Admin: 07/10/17 00:00 Dose: 650 mg Acetazolamide (Diamox 250 Mg Tab) 250 mg PO BID [facility] Stop: 07/11/17 10:01 Last Admin: 07/10/17 10:05 Dose: Not Given Albuterol/Ipratropium (Duoneb 3 Mg/0.5 Mg (3 Ml) Ud) 3 ml INH RQID [facility] Last Admin: 07/10/17 15:35 Dose: Not Given Ascorbic Acid (Vitamin C 500 Mg Tab) 500 mg PO DAILY [facility] Last Admin: 07/10/17 09:03 Dose: Not Given Atorvastatin Calcium (Lipitor) 20 mg PO HS [facility] Last Admin: 07/09/17 21:15 Dose: 20 mg Collagenase (Santyl) 1 applic TOP DAILY [facility] Last Admin: 07/10/17 10:05 Dose: Not Given Levofloxacin/Dextrose (Levaquin 750mg) 750 mg in 150 mls @ 100 mls/hr IVPB DAILY [facility] Last Admin: 07/10/17 08:48 Dose: 100 mls/hr Vancomycin HCl 1 gm/ Sodium (Chloride) 250 mls @ 166.667 mls/hr IVPB Q24H [facility] PRN Reason: Protocol Last Admin: 07/10/17 15:26 Dose: 166.667 mls/hr Sodium Chloride (Sodium Chloride 0.9%) 1,000 mls @ 100 mls/hr IV .Q10H [facility] Stop: 07/10/17 17:36 Last Admin: 07/10/17 12:29 Dose: 100 mls/hr Latanoprost (Xalatan Opht) 1 drop OD HS [facility] Last Admin: 07/09/17 21:17 Dose: 1 drop Magnesium Oxide (Mag-Ox) 400 mg PO BID [facility] Last Admin: 07/10/17 09:01 Dose: Not Given Multivitamins/Minerals (Therapeutic-M Tab) 1 tab PO DAILY [facility] Last Admin: 07/10/17 09:03 Dose: Not Given Sennosides (Senokot Tab) 17.2 mg PO HS [facility] Last Admin: 07/09/17 21:16 Dose: 17.2 mg - Labs Labs: 07/10/17 15:10 07/10/17 15:10 PT 12.2 Seconds (9.8-13.1) 07/05/17 18:40 INR 1.1 (0.9-1.2) 07/05/17 18:40 APTT 29.6 Seconds (25.6-37.1) 07/05/17 18:40 - Respiratory Exam Respiratory Exam: NORMAL BREATHING PATTERN - Cardiovascular Exam Cardiovascular Exam: REGULAR RHYTHM - GI/Abdominal Exam GI & Abdominal Exam: Normal Bowel Sounds Assessment and Plan - Assessment and Plan (Free Text) Assessment: S/P R Hip THR wound infection/ Surgery Ortho ID Plastic ABX COPD Hypoxia Chronic? Pulmonary consult/ ICU Metabolic alkalosis 2 to above Nephrology consult appreciated Diamox Anemia etiol? s/p THR repeat Hbg 9 S/P NSTEMI HTN cadiomyopathy Cardiology Adj Rxn refusing therapy?? Seen by Psych
[2017-07-10] MEDS ORDERED: Gentamicin 80 mg/2mL Inj. ONE (17:15)
[2017-07-10] MEDS ORDERED: Vancomycin 1 g Inj IVPB ONE (17:42)
[2017-07-10] MEDS ORDERED: Neostigmine Methylsulfate 2 MG/2 ML ML IV ONE ×2 (17:50→17:53)
[2017-07-10] MEDS ORDERED: Neostigmine Methylsulfate 3mg/3ml Syringe IV ONE (17:50)
--- NOTE | 2017-07-10 18:11 | PCM.SURG1 ---
Surgeon's Initial Post Op Note - Surgeon's Notes Surgeon: Eligio Lumber Driver: DESEAN Machado/ Type of Anesthesia: General Endo, Spinal Anesthesia Administered By: Dr Boogie Pre-Operative Diagnosis: superficial wound excoriation- R/O sepsis Operative Findings: superificial wound excoriation with necrosis area skin. no evidence for deep sepsis/NO COMMUNICATION WITH JOINT- FASCIA ON TYENSOR FASCIA FEMORIS (WHICH WAS CLOSED IN FIRST POROCEDURE IS STILL INTACT) Post-Operative Diagnosis: ABOVE Operation Performed: Incisison drainage L hip incision. excision skin/ subcutaneous tissue/portion of muscle. insertion abio impregnated Ca so4 granules/ Specimen/Specimens Removed: skin/subcutaneous tissue/muscle Estimated Blood Loss: EBL {In ML}: 20 Blood Products Given: N/A Drains Used: No Drains Post-Op Condition: Good Date of Surgery/Procedure: 07/10/17 Time of Surgery/Procedure: 17:10 (time in room/anetsheisa induction time 1620)
[2017-07-10] MEDS ORDERED: HYDROmorphone 0.5 mg/0.5 ml ISec IVP PRN (18:24)
[2017-07-10] MEDS ORDERED: HYDROmorphone 0.5 mg/0.5 ml ISec ONE (18:29)
[2017-07-10] MEDS ORDERED: Sodium Chloride 0.9% 1,000 ML IV SCH (18:30)
[2017-07-10 19:39] LABS: FLUID TYPE SYNOVIAL FLUID
--- NOTE | 2017-07-10 19:49 | PCM.ANESB3 ---
Femoral Nerve Block - Femoral Nerve Block Date of Procedure: 07/10/17 Anesthesiologist: Liza Pre-Procedure Diagnosis: Wound infection left hip Post-Procedure Diagnosis: Same Procedure Performed: Femoral Nerve Block Left - Procedure Femoral Nerve Block: The procedure was explained to the patient that it is for the post-operative pain management. Consent was obtained after a thorough discussion with the patient regarding the benefits and possible complications of local anesthetic block of the femoral nerve at the inguinal crease area. The patient was brought to the operating room and standard monitors were applied. Time-out was held with the circulating nurse to confirm the correct surgery and the appropriate block. Under general anesthesia, patient was placed in supine position with fully extended lower extremities and the __left groin exposed. The femoral artery was then carefully palpated. The ultrasound transducer was then applied to this area in the transverse plane and the femoral nerve was visualized lateral to the femoral artery and underneath the fascia iliaca. After thorough identification, the inguinal crease area was prepped with Chloraprep. At this point, a #22 gauge Stimuplex 4-inch needle was inserted immediately lateral to the femoral artery pulse at the inguinal crease and advanced perpendicularly. The needle was inserted to the ultrasound transducer in-plane towards the femoral nerve in a [id number] direction. Needle advancement was performed carefully under direct ultrasound visualization. Nerve stimulator was used and twitch of the quadriceps muscle was obtained at current of __0.4___ MA. After negative aspiration, __2___cc of ___0.25__% ropivicaine was injected and this was followed with __38____ cc of __0.25 % _ropivicaine . Under ultrasound guidance the local anesthetics were observed spreading below fascia iliaca and around the femoral nerve. The needle was removed intact. The patient tolerated the femoral nerve block well with stable vital signs and was prepared for subsequent surgery.
[2017-07-10 20:29] LABS: SYNOVIAL FLUID TOTAL COUNT 100 (0-0)
[2017-07-11] MEDS: Latanoprost 0.005% Opht SOUTION OD SCH ×2 (02:28→21:47)
[2017-07-11 04:57] LABS: CHLORIDE URINE 134 mmol/L (32-290)
[2017-07-11 05:49] LABS: BASO % 0.7 % (0.0-2.0); EOS # 0.1 K/uL (0.0-0.7); EOS % 3.1 % (0.0-4.0); HEMATOCRIT 29.3 % (34.0-47.0); LYMPH # 0.8 K/uL (1.0-4.3); LYMPH % 18.1 % (20.0-40.0); MEAN CELL VOLUME 101.1 fl (81.0-99.0); MEAN CORPUSCULAR HEMOGLOBIN 33.1 pg (27.0-31.0); MEAN CORPUSCULAR HGB CONC 32.7 g/dL (33.0-37.0); MEAN PLATELET VOLUME 8.5 fl (7.2-11.7); MONO # 0.4 K/uL (0.0-0.8); MONO % 9.1 % (0.0-10.0); NRBC % 0.1 % (0.0-0.0); RED CELL DISTRIBUTION WIDTH 17.3 % (11.5-14.5); WHITE BLOOD COUNT 4.4 K/uL (4.8-10.8)
[2017-07-11 06:00] LABS: ABG ALLEN TEST YES; ARTERIAL BLOOD FLOW 20; ARTERIAL BLOOD GAS HCO3 26.3 mmol/L (21-28); ARTERIAL BLOOD GAS MODE HIGH FLOW LPM; ARTERIAL BLOOD GAS O2 CAPACITY 13.8 mL/dL (16-24); ARTERIAL BLOOD GAS O2 CONTENT 13.4 ML/dL (15-23); ARTERIAL BLOOD GAS PH 7.37 (7.35-7.45); ARTERIAL BLOOD GAS PO2 62 mm/Hg (80-100); ARTERIAL BLOOD HGB O2 SAT 92.9 % (95.0-98.0); CARBOXYHEMOGLOBIN 2.7 % (0.5-1.5); HHB 3.1 % (0.0-5.0); METHEMOGLOBIN 1.3 % (0.0-3.0)
[2017-07-11 06:08] LABS: BLOOD UREA NITROGEN 7 mg/dl (7-17); CARBON DIOXIDE 29 mmol/L (22-30); CHLORIDE 105 mmol/L (98-107); GFR AFRICAN-AMERICAN > 60; GLUCOSE,RANDOM 82 mg/dL (65-105); MAGNESIUM 1.7 MG/DL (1.6-2.3); PHOSPHOROUS 2.7 mg/dl (2.5-4.5); POTASSIUM 3.8 MMOL/L (3.6-5.0); SODIUM 137 mmol/l (132-148)
[2017-07-11] MEDS: Albuterol-Ipratrop 3 mg / 0.5 (3 ml) UD INH SCH ×4 (07:52→19:19)
--- NOTE | 2017-07-11 08:37 | CP.PCM.PN ---
Subjective - Date & Time of Evaluation Date of Evaluation: 07/11/17 Time of Evaluation: 08:29 - Subjective Subjective: First day post-op, appears comfortable. Awake and well oriented, not complaining of pain. Surgery note suggests a superficial cellulitis w/o compromise of the joint space. Electrolyte imbalance has corrected nicely. Oxygenation is satisfactory using HF nasal canula. No dullness on percussion of the anterior chest wall. Breath sounds are diminished equally in both lungs. No wheezes or bronchial breath sounds. Rare dependant dry rales. Heart sounds distant, rhythm regular. No pedal edema, no cyanosis, extremities warm and pink with good capillary refill. Medical regimen remains the same. HFNC reduced to 15 LPM, O2 stays at 28%. No reason to remain in ICU from a pulmonary standpoint. A line pulled out overnight by the patient. No further ABG needed at this point. Objective - Vital Signs/Intake and Output Vital Signs (last 24 hours): Temp Pulse Resp BP Pulse Ox 98.9 F 77 17 106/50 L 97 07/11/17 04:00 07/11/17 06:00 07/11/17 07:53 07/11/17 06:00 07/11/17 06:00 Intake and Output: 07/10/17 07/11/17 23:59 11:59 Intake Total 825 Balance 825 - Medications Medications: Current Medications Acetaminophen (Tylenol 325mg Tab) 650 mg PO Q6 PRN PRN Reason: Pain, Mild (1-3) Last Admin: 07/10/17 00:00 Dose: 650 mg Acetazolamide (Diamox 250 Mg Tab) 250 mg PO BID [facility] Stop: 07/11/17 10:01 Last Admin: 07/10/17 17:13 Dose: Not Given Albuterol/Ipratropium (Duoneb 3 Mg/0.5 Mg (3 Ml) Ud) 3 ml INH RQID [facility] Last Admin: 07/11/17 07:52 Dose: Not Given Ascorbic Acid (Vitamin C 500 Mg Tab) 500 mg PO DAILY [facility] Last Admin: 07/10/17 09:03 Dose: Not Given Atorvastatin Calcium (Lipitor) 20 mg PO HS [facility] Last Admin: 07/10/17 23:56 Dose: 20 mg Collagenase (Santyl) 1 applic TOP DAILY [facility] Last Admin: 07/10/17 10:05 Dose: Not Given Enoxaparin Sodium (Lovenox) 40 mg SC DAILY [facility] PRN Reason: Protocol Levofloxacin/Dextrose (Levaquin 750mg) 750 mg in 150 mls @ 100 mls/hr IVPB DAILY [facility] Last Admin: 07/10/17 08:48 Dose: 100 mls/hr Vancomycin HCl 1 gm/ Sodium (Chloride) 250 mls @ 166.667 mls/hr IVPB Q24H [facility] PRN Reason: Protocol Last Admin: 07/10/17 15:26 Dose: 166.667 mls/hr Sodium Chloride (Sodium Chloride 0.9%) 1,000 mls @ 100 mls/hr IV .Q10H [facility] Latanoprost (Xalatan Opht) 1 drop OD HS [facility] Last Admin: 07/11/17 02:28 Dose: 1 drop Magnesium Oxide (Mag-Ox) 400 mg PO BID [facility] [place] Last Admin: 07/10/17 17:13 Dose: Not Given Multivitamins/Minerals (Therapeutic-M Tab) 1 tab PO DAILY [facility] Last Admin: 07/10/17 09:03 Dose: Not Given Sennosides (Senokot Tab) 17.2 mg PO HS [facility] Last Admin: 07/10/17 23:56 Dose: 17.2 mg - Labs Labs: 07/11/17 05:11 07/11/17 05:11 PT 12.2 Seconds (9.8-13.1) 07/05/17 18:40 INR 1.1 (0.9-1.2) 07/05/17 18:40 APTT 29.6 Seconds (25.6-37.1) 07/05/17 18:40 Assessment and Plan (1) Surgical site infection Status: Acute (2) Pulmonary emphysema determined by X-ray Status: Chronic (3) Hypercapnia Status: Acute
[2017-07-11] MEDS: Magnesium Oxide 400 mg Tab UD PO SCH ×2 (09:43→17:01)
[2017-07-11] MEDS: Enoxaparin 40 mg Syringe SC SCH (09:44)
[2017-07-11] MEDS: Multivitamin With Minerals Tab PO SCH (09:45)
[2017-07-11] MEDS: Santyl Collagenase OINTMENT TOP SCH (09:45)
[2017-07-11] MEDS: levoFLOXacin 750 mg in D5W 750 MG/150 ML BAG IVPB SCH (10:00)
--- NOTE | 2017-07-11 11:02 | CP.PCM.PN ---
Subjective - Date & Time of Evaluation Date of Evaluation: 07/11/17 Time of Evaluation: 07:00 - Subjective Subjective: i iv rx in progress tolerated well NAD no joint involvement Objective - Vital Signs/Intake and Output Vital Signs (last 24 hours): Temp Pulse Resp BP Pulse Ox 99.1 F 82 14 111/57 L 95 07/11/17 08:00 07/11/17 08:00 07/11/17 08:00 07/11/17 08:00 07/11/17 08:00 - Medications Medications: Current Medications Acetaminophen (Tylenol 325mg Tab) 650 mg PO Q6 PRN PRN Reason: Pain, Mild (1-3) Last Admin: 07/10/17 00:00 Dose: 650 mg Albuterol/Ipratropium (Duoneb 3 Mg/0.5 Mg (3 Ml) Ud) 3 ml INH RQID [facility] Last Admin: 07/11/17 07:52 Dose: Not Given Ascorbic Acid (Vitamin C 500 Mg Tab) 500 mg PO DAILY [facility] Last Admin: 07/11/17 09:45 Dose: 500 mg Atorvastatin Calcium (Lipitor) 20 mg PO HS [facility] Last Admin: 07/10/17 23:56 Dose: 20 mg Collagenase (Santyl) 1 applic TOP DAILY [facility] Last Admin: 07/11/17 09:45 Dose: 1 applic Enoxaparin Sodium (Lovenox) 40 mg SC DAILY [facility] PRN Reason: Protocol Last Admin: 07/11/17 09:44 Dose: 40 mg Levofloxacin/Dextrose (Levaquin 750mg) 750 mg in 150 mls @ 100 mls/hr IVPB DAILY [facility] Last Admin: 07/10/17 08:48 Dose: 100 mls/hr Vancomycin HCl 1 gm/ Sodium (Chloride) 250 mls @ 166.667 mls/hr IVPB Q24H [facility] PRN Reason: Protocol Last Admin: 07/10/17 15:26 Dose: 166.667 mls/hr Sodium Chloride (Sodium Chloride 0.9%) 1,000 mls @ 100 mls/hr IV .Q10H [facility] Latanoprost (Xalatan Opht) 1 drop OD HS [facility] Last Admin: 07/11/17 02:28 Dose: 1 drop Magnesium Oxide (Mag-Ox) 400 mg PO BID [facility] Last Admin: 07/11/17 09:43 Dose: 400 mg Multivitamins/Minerals (Therapeutic-M Tab) 1 tab PO DAILY [facility] Last Admin: 07/11/17 09:45 Dose: 1 tab Sennosides (Senokot Tab) 17.2 mg PO HS [facility] Last Admin: 07/10/17 23:56 Dose: 17.2 mg - Labs Labs: 07/11/17 05:11 07/11/17 05:11 PT 12.2 Seconds (9.8-13.1) 07/05/17 18:40 INR 1.1 (0.9-1.2) 07/05/17 18:40 APTT 29.6 Seconds (25.6-37.1) 07/05/17 18:40 - Constitutional Appears: Non-toxic, Chronically Ill - Head Exam Head Exam: NORMOCEPHALIC - Eye Exam Eye Exam: PERRL - ENT Exam ENT Exam: Mucous Membranes Dry - Neck Exam Neck Exam: absent: Lymphadenopathy - Respiratory Exam Respiratory Exam: Decreased Breath Sounds - Cardiovascular Exam Cardiovascular Exam: REGULAR RHYTHM Assessment and Plan (1) Cellulitis Status: Acute
--- NOTE | 2017-07-11 11:14 | PQF GENQUE ---
This form is a permanent part of the medical record 07/11/17 Dr. Means, Admission Nurse with documentation of an open wound and redness at the right inner buttock social services manager on 07/11: Resolving stage 2 pressure ulcer to right inner buttocks. R heel found DTI ( Deep Tissue Injury) fading. Would you please clarify if you concur with the above documentation or not and were these present on admission or not. Clarification of your documentation is requested to better reflect the severity of illness and intensity of treatment of your patient. Indicators present [] Specify: [] [] Specify: [] [] Specify: [] [] Specify: [] Location in the medical record that reflects the above clinical findings: [] Treatment Provided: [] PHYSICIAN'S RESPONSE Based on your medical judgment of the clinical indicators outlined above please clarify the following: [] Practitioner response [] If unable to determine, please check the box, sign and date. Present On Admission (POA) Indicator: [] Present at the time of admission [] Not present at the time of admission [] Clinically Undetermined In responding to this query, please exercise your independent professional judgment. The fact that a question is asked does not imply that any particular answer is desired or expected. Thank you for your clarification on this documentation. If you have any questions please call:extension [phone] * Thank you, Noemi Jamison RN [facility]
--- NOTE | 2017-07-11 11:16 | CP.PCM.PN ---
Subjective - Date & Time of Evaluation Date of Evaluation: 07/11/17 Time of Evaluation: 10:00 - Subjective Subjective: NO CHEST PAIN OR SOB Objective - Vital Signs/Intake and Output Vital Signs (last 24 hours): Temp Pulse Resp BP Pulse Ox 99.1 F 82 14 111/57 L 95 07/11/17 08:00 07/11/17 08:00 07/11/17 08:00 07/11/17 08:00 07/11/17 08:00 - Medications Medications: Current Medications Acetaminophen (Tylenol 325mg Tab) 650 mg PO Q6 PRN PRN Reason: Pain, Mild (1-3) Last Admin: 07/10/17 00:00 Dose: 650 mg Albuterol/Ipratropium (Duoneb 3 Mg/0.5 Mg (3 Ml) Ud) 3 ml INH RQID [facility] Last Admin: 07/11/17 07:52 Dose: Not Given Ascorbic Acid (Vitamin C 500 Mg Tab) 500 mg PO DAILY [facility] Last Admin: 07/11/17 09:45 Dose: 500 mg Atorvastatin Calcium (Lipitor) 20 mg PO HS [facility] Last Admin: 07/10/17 23:56 Dose: 20 mg Collagenase (Santyl) 1 applic TOP DAILY [facility] Last Admin: 07/11/17 09:45 Dose: 1 applic Enoxaparin Sodium (Lovenox) 40 mg SC DAILY [facility] PRN Reason: Protocol Last Admin: 07/11/17 09:44 Dose: 40 mg Levofloxacin/Dextrose (Levaquin 750mg) 750 mg in 150 mls @ 100 mls/hr IVPB DAILY [facility] Last Admin: 07/10/17 08:48 Dose: 100 mls/hr Vancomycin HCl 1 gm/ Sodium (Chloride) 250 mls @ 166.667 mls/hr IVPB Q24H [facility] PRN Reason: Protocol Last Admin: 07/10/17 15:26 Dose: 166.667 mls/hr Sodium Chloride (Sodium Chloride 0.9%) 1,000 mls @ 100 mls/hr IV .Q10H [facility] Latanoprost (Xalatan Opht) 1 drop OD HS [facility] Last Admin: 07/11/17 02:28 Dose: 1 drop Magnesium Oxide (Mag-Ox) 400 mg PO BID [facility] Last Admin: 07/11/17 09:43 Dose: 400 mg Multivitamins/Minerals (Therapeutic-M Tab) 1 tab PO DAILY [facility] Last Admin: 07/11/17 09:45 Dose: 1 tab Sennosides (Senokot Tab) 17.2 mg PO HS [facility] Last Admin: 07/10/17 23:56 Dose: 17.2 mg - Labs Labs: 07/11/17 05:11 07/11/17 05:11 PT 12.2 Seconds (9.8-13.1) 07/05/17 18:40 INR 1.1 (0.9-1.2) 07/05/17 18:40 APTT 29.6 Seconds (25.6-37.1) 07/05/17 18:40 - Respiratory Exam Respiratory Exam: Clear to Ausculation Bilateral - Cardiovascular Exam Cardiovascular Exam: REGULAR RHYTHM, +S1, +S2 - Extremities Exam Extremities Exam: Normal Inspection - Additional Findings Additional findings: EKG MONIDTOR NSR OR NOTED OF DR STOREY REVIEW WITH SUPERFICIAL ABRASION, NO DEEP INFECTION Assessment and Plan - Assessment and Plan (Free Text) Assessment: RECENT RIGHT THR AND WOUND ABRASION CARDIOMYOPATHY HYPERTENSION HYPERLIPIDEMIA Plan: CONTINUE LEVOFLOXACIN, ASPIRIN, LOVENOX, ATORVASTATIN ASPIRIN RESTARTED WILL CONTINUE TO HOLD CARVEDILOL BP IS LOW NORMAL
--- NOTE | 2017-07-11 13:42 | VASCULAR ---
PROCEDURE: Date of procedure: 07/07/2017 Procedure: 1. Placement of a right arm PICC with ultrasound and fluoroscopic guidance, CPT 39986 2. PICC tip confirmation with spot radiograph and is in the superior vena cava Medications: 1 percent lidocaine Total Fluoro time: 4.9 seconds Radiation: 0.36 MGy EBL: 2 cc HISTORY: Infection requiring long-term IV antibiotics TECHNIQUE: Following informed consent and procedure time-out, the patient was placed supine on the interventional table and the right arm prepped and draped in the usual sterile fashion. Ultrasound showed a patent and compressible right basilic vein. After the skin was anesthetized with lidocaine, the basilic vein was accessed with micro micropuncture technique using ultrasound guidance. A guidewire was then advanced under fluoroscopic guidance into the superior vena cava. An image documenting ultrasound guidance for vascular access was permanently saved. The length of the single-lumen 4 [place] PICC was trimmed to 37 centimeters and advanced through a peel-away sheath. The PICC was position with tip of PICC confirm a spot radiograph the superior vena cava. The PICC was secured to the patient's skin. The PICC was flushed. A biopatch and sterile dressing was applied. IMPRESSION: Placement of a single-lumen 4 [place] PICC trimmed to 37 centimeters via right basilic vein. The tip of the PICC is confirmed with spot radiograph and is in the superior vena cava.
--- NOTE | 2017-07-11 20:37 | CP.PCM.PN ---
Subjective - Date & Time of Evaluation Date of Evaluation: 07/11/17 Time of Evaluation: 22:22 - Subjective Subjective: BP low Objective - Vital Signs/Intake and Output Vital Signs (last 24 hours): Temp Pulse Resp BP Pulse Ox 98.1 F 83 30 H 116/52 L 95 07/11/17 20:00 07/11/17 20:00 07/11/17 20:00 07/11/17 20:00 07/11/17 20:00 Intake and Output: 07/11/17 07/12/17 18:59 06:59 Intake Total 100 Balance 100 - Medications Medications: Current Medications Acetaminophen (Tylenol 325mg Tab) 650 mg PO Q6 PRN PRN Reason: Pain, Mild (1-3) Last Admin: 07/10/17 00:00 Dose: 650 mg Albuterol/Ipratropium (Duoneb 3 Mg/0.5 Mg (3 Ml) Ud) 3 ml INH RQID [facility] Last Admin: 07/11/17 19:19 Dose: Not Given Ascorbic Acid (Vitamin C 500 Mg Tab) 500 mg PO DAILY [facility] Last Admin: 07/11/17 09:45 Dose: 500 mg Aspirin (Ecotrin) 81 mg PO DAILY [facility] Last Admin: 07/11/17 12:00 Dose: 81 mg Atorvastatin Calcium (Lipitor) 20 mg PO HS [facility] Last Admin: 07/10/17 23:56 Dose: 20 mg Collagenase (Santyl) 1 applic TOP DAILY [facility] Last Admin: 07/11/17 09:45 Dose: 1 applic Enoxaparin Sodium (Lovenox) 40 mg SC DAILY [facility] PRN Reason: Protocol Last Admin: 07/11/17 09:44 Dose: 40 mg Levofloxacin/Dextrose (Levaquin 750mg) 750 mg in 150 mls @ 100 mls/hr IVPB DAILY [facility] Last Admin: 07/11/17 10:00 Dose: 100 mls/hr Vancomycin HCl 1 gm/ Sodium (Chloride) 250 mls @ 166.667 mls/hr IVPB Q24H [facility] PRN Reason: Protocol Last Admin: 07/11/17 15:45 Dose: 166.667 mls/hr Sodium Chloride (Sodium Chloride 0.9%) 1,000 mls @ 100 mls/hr IV .Q10H [facility] Latanoprost (Xalatan Opht) 1 drop OD [facility] Last Admin: 07/11/17 02:28 Dose: 1 drop Magnesium Oxide (Mag-Ox) 400 mg PO BID [facility] Last Admin: 07/11/17 17:01 Dose: Not Given Multivitamins/Minerals (Therapeutic-M Tab) 1 tab PO DAILY [facility] Last Admin: 07/11/17 09:45 Dose: 1 tab Sennosides (Senokot Tab) 17.2 mg PO HS [facility] Last Admin: 07/10/17 23:56 Dose: 17.2 mg - Labs Labs: 07/11/17 05:11 07/11/17 05:11 PT 12.2 Seconds (9.8-13.1) 07/05/17 18:40 INR 1.1 (0.9-1.2) 07/05/17 18:40 APTT 29.6 Seconds (25.6-37.1) 07/05/17 18:40 - Respiratory Exam Respiratory Exam: NORMAL BREATHING PATTERN - Cardiovascular Exam Cardiovascular Exam: REGULAR RHYTHM - GI/Abdominal Exam GI & Abdominal Exam: Normal Bowel Sounds Assessment and Plan - Assessment and Plan (Free Text) Assessment: S/P R Hip THR S/P wound debridement Ortho ID Plastic ABX COPD Hypoxia Chronic? Pulmonary consult Metabolic alkalosis 2 to above Nephrology consult appreciated Diamox Anemia etiol? s/p THR repeat Hbg 9 S/P NSTEMI HTN cadiomyopathy Cardiology Adj Rxn refusing therapy?? Seen by Psych
[2017-07-12] MEDS: Sodium Chloride 0.9% 1,000 ML IV SCH (01:41)
[2017-07-12 05:08] LABS: HEMATOCRIT 29.1 % (34.0-47.0); MEAN CELL VOLUME 101.5 fl (81.0-99.0); MEAN CORPUSCULAR HEMOGLOBIN 32.9 pg (27.0-31.0); MEAN CORPUSCULAR HGB CONC 32.4 g/dL (33.0-37.0); RED CELL DISTRIBUTION WIDTH 17.1 % (11.5-14.5)
[2017-07-12 06:04] LABS: BLOOD UREA NITROGEN 7 mg/dl (7-17); CALCIUM 9.1 mg/dL (8.4-10.2); CARBON DIOXIDE 28 mmol/L (22-30); CHLORIDE 103 mmol/L (98-107); GFR AFRICAN-AMERICAN > 60; GLUCOSE,RANDOM 74 mg/dL (65-105); POTASSIUM 3.4 MMOL/L (3.6-5.0); SODIUM 135 mmol/l (132-148)
[2017-07-12] MEDS: Albuterol-Ipratrop 3 mg / 0.5 (3 ml) UD INH SCH ×3 (08:24→19:35)
--- NOTE | 2017-07-12 08:24 | CP.PCM.PN ---
Subjective - Date & Time of Evaluation Date of Evaluation: 07/12/17 Time of Evaluation: 08:20 - Subjective Subjective: Awake, alert, cooperates with exam, but refusing CXR and breakfast. Has tolerated reduced oxygen supplement with SpO2 maintained >90%. Vital signs have remained stable. No dullness on percussion of the anterior chest wall, no subcut emphysema. Breath sounds are present and equally diminished bilaterally. Dry rales are present in the dependant areas of both lower lobes. No wheezing or bronchial breathing. Place on standard nasal canula at 4 LPM. Monitor SpO2. No medication changes. Awaiting transfer out of ICU. Encourage oral intake and physical therapy. Patient states she will allow CXR after transfer out of ICU. Objective - Vital Signs/Intake and Output Vital Signs (last 24 hours): Temp Pulse Resp BP Pulse Ox 98.1 F 81 15 107/54 L 94 L 07/12/17 04:00 07/12/17 06:00 07/12/17 06:00 07/12/17 06:00 07/12/17 06:00 Intake and Output: 07/11/17 07/12/17 23:59 11:59 Intake Total 400 900 Balance 400 900 - Medications Medications: Current Medications Acetaminophen (Tylenol 325mg Tab) 650 mg PO Q6 PRN PRN Reason: Pain, Mild (1-3) Last Admin: 07/10/17 00:00 Dose: 650 mg Albuterol/Ipratropium (Duoneb 3 Mg/0.5 Mg (3 Ml) Ud) 3 ml INH RQID [facility] Last Admin: 07/11/17 19:19 Dose: Not Given Ascorbic Acid (Vitamin C 500 Mg Tab) 500 mg PO DAILY [facility] Last Admin: 07/11/17 09:45 Dose: 500 mg Aspirin (Ecotrin) 81 mg PO DAILY [facility] Last Admin: 07/11/17 12:00 Dose: 81 mg Atorvastatin Calcium (Lipitor) 20 mg PO HS [facility] Last Admin: 07/11/17 21:49 Dose: 20 mg Collagenase (Santyl) 1 applic TOP DAILY [facility] Last Admin: 07/11/17 09:45 Dose: 1 applic Enoxaparin Sodium (Lovenox) 40 mg SC DAILY [facility] PRN Reason: Protocol Last Admin: 07/11/17 09:44 Dose: 40 mg Levofloxacin/Dextrose (Levaquin 750mg) 750 mg in 150 mls @ 100 mls/hr IVPB DAILY [facility] Last Admin: 07/11/17 10:00 Dose: 100 mls/hr Vancomycin HCl 1 gm/ Sodium (Chloride) 250 mls @ 166.667 mls/hr IVPB Q24H [facility] PRN Reason: Protocol Last Admin: 07/11/17 15:45 Dose: 166.667 mls/hr Sodium Chloride (Sodium Chloride 0.9%) 1,000 mls @ 100 mls/hr IV .Q10H [facility] Last Admin: 07/12/17 01:43 Dose: 100 mls/hr Latanoprost (Xalatan Opht) 1 drop OD HS [facility] Last Admin: 07/11/17 21:47 Dose: 1 drop Magnesium Oxide (Mag-Ox) 400 mg PO BID [facility] Last Admin: 07/11/17 17:01 Dose: Not Given Multivitamins/Minerals (Therapeutic-M Tab) 1 tab PO DAILY [facility] Last Admin: 07/11/17 09:45 Dose: 1 tab Sennosides (Senokot Tab) 17.2 mg PO HS [facility] Last Admin: 07/11/17 21:49 Dose: 17.2 mg - Labs Labs: 07/12/17 04:10 07/12/17 04:10 PT 12.2 Seconds (9.8-13.1) 07/05/17 18:40 INR 1.1 (0.9-1.2) 07/05/17 18:40 APTT 29.6 Seconds (25.6-37.1) 07/05/17 18:40 Assessment and Plan (1) Surgical site infection Status: Acute (2) Pulmonary emphysema determined by X-ray Status: Chronic (3) Hypercapnia Status: Acute
--- NOTE | 2017-07-12 08:39 | PN ---
DATE: 07/11/2017 CRITICAL CARE PROGRESS NOTE TIME SPENT: 25 minutes. LOCATION: Patient in ICU, bed 432. SUBJECTIVE: Seen and evaluated at the bedside. Events since admission reviewed. Past medical, surgical, and social history are noted. Overnight, normotensive, afebrile. On high-nasal oxygen, saturating over 94 %. Postop day one, status post incision and drainage, left hip incision; excision of skin, subcutaneous tissue, portion of the muscle; insertion of impregnated CaSO4 granules. Estimated blood loss, 20 mL. This morning, alert, awake, follows commands appropriate. No distress noted. On high-flow nasal oxygen. Seen by Pulmonary consult. High-flow oxygen changed to 15 L with FiO2 of 28%. PHYSICAL EXAMINATION: VITAL SIGNS: Temperature 98.9, heart rate 76, blood pressure 106/53, saturation 94%. Intake , output 825, positive balance of 325. Weight 150 pounds. HEAD, EYES, EARS, NOSE AND THROAT: Pupils reactive. Conjunctivae pink. Sclerae white. NECK: Supple. Trachea is central. CHEST: Bilateral breath sounds. Fine crepitations at the bases. HEART: Rhythm regular. S1, S2 normal. ABDOMEN: Bowel sounds present. Soft. Liver and spleen not palpable. Bladder not distended. EXTREMITIES: Trace edema. NEUROLOGIC: Nonfocal. LABORATORY DATA: WBC 4.4, hemoglobin 9.6, hematocrit 29.3, platelet count 148; neutrophils 69, lymphocytes 18, monocytes 9.1. PT 12.2, INR 1.1, PTT 29.6. ABG: pH of 7.37, pCO2 of 48, pO2 of 62, saturation 96.8% on 20 liters, FiO2 of 28%. SMA-7: Sodium 137, potassium 3.8, chloride 105, CO2 of 29, blood urea nitrogen 7, creatinine 0.6, random glucose 82, calcium 9, phosphorus 2.7, magnesium 1.7. Urinalysis is negative. Synovial fluid with WBC 115, RBC 42,695, neutrophils 80, and lymphocytes 19. Culture pending. Toxicology: Vancomycin trough level is 17.1. CURRENT MEDICATIONS: Tylenol 650 q. 6 p.r.n. for pain, DuoNeb 3 mL q.i.d., ascorbic acid 500 mg daily, Ecotrin 81 mg daily, atorvastatin 20 mg at night, Santyl one application topical daily, Lovenox 40 mg subcu daily, Xalatan eyedrops 1 drop right eye at bedtime, levofloxacin 750 mg IV push daily , magnesium oxide 400 mg twice daily, multivitamin tablet daily, Senokot one tablet at night, sodium chloride at 100 mL per hour, vancomycin 1 g IV daily. IMPRESSION: 1. Cellulitis, superficial infection involving the hip, status post incision, drainage, and debridement. 2. History of chronic obstructive pulmonary disease, on high-flow nasal oxygen, tolerating well. 3. Infection, seen by Infectious Disease consult. Continue with the current antibiotics as recommend by Infectious Disease consult. PLAN: Patient may start on low-sodium diet as tolerated, may transfer to Med Surgery floor. Follow up by Pulmonary and Infectious Disease consult. Mark Gutiérrez MD
--- NOTE | 2017-07-12 08:46 | CON ---
DATE: 07/10/2017 REASON FOR CONSULTATION: An 82-year-old female status post wound debridement, washout and culture, for suspected cellulitis, right hip. HISTORY OF PRESENT ILLNESS: The patient is an 82-year-old female, reformed smoker with a history of chronic obstructive pulmonary disease with CO2 retention, cardiomyopathy with ejection fraction approximately 20%, hypertension. She was admitted on June 08 after a fall and sustained a right hip fracture. During the admission, the patient was noted to be dehydrated and with prerenal azotemia. The patient subsequently underwent right total hip replacement, femoral neck osteotomy, arthrotomy, synovectomy, release of right iliopsoas tendon, autograft bone graft to acetabulum. The patient was subsequently discharged to intermediate for rehabilitation. She was readmitted on 07/05/2017 with several days of redness to the hip, right hip pain. The patient was noted to have cellulitis and one culture grew Klebsiella pneumoniae sensitive to levofloxacin. The patient was seen by ID consult and continued on levofloxacin and vancomycin. The patient underwent washout, debridement of the right hip. Received 1 unit of packed red blood cells in OR. Estimated blood loss 20 mL. The patient is admitted to ICU for overnight observation of postop hemodynamic stability given her cardiomyopathy and COPD with CO2 retention. MEDICATIONS: Include acetaminophen 650 mg q. 6 hours, Diamox 250 mg twice daily, DuoNeb 3 mL 4 times daily, vitamin C 500 mg daily, atorvastatin 20 mg daily, levofloxacin 750 mg daily, vancomycin 1 g daily, normal saline at 100 mL per hour, Xalatan eye drops 1 drop at bedtime, magnesium oxide 400 mg b.i.d., multivitamin tablet daily, and Senokot 1 tablet at bedtime. ALLERGIES: SHE IS ALLERGIC TO PENICILLIN. PHYSICAL EXAMINATION: GENERAL: An elderly female, alert and awake, still under the effect of anesthesia. VITAL SIGNS: Temperature 96.7, heart rate 63, blood pressure 133/64, and saturating 100%. HEAD, EYES, EARS, NOSE AND THROAT: Pupils are reactive. Conjunctivae pink. Sclerae white. NECK: Supple. Trachea central. CHEST: Bilateral breath sounds. Clear to auscultation. HEART: Rhythm regular. S1 and S2 normal intensity. No S3 or S4 gallop. No audible murmur. ABDOMEN: Bowel sounds present, soft. EXTREMITIES: Dressing intact on the right hip. DP palpable. NEUROLOGIC: Wakeful, but lethargic under the effect of the anesthetic medications. LABORATORY DATA: WBC 3.5, hemoglobin 9.7, hematocrit 30.4, and platelet count of 150. SMA-7: Sodium 138, potassium 3.9, chloride 105, CO2 of 28, blood urea nitrogen 8, creatinine 0.6, random glucose 86, calcium 8.7, magnesium 1.4, total bilirubin 0.12, AST 16, ALT 31, alkaline phosphatase 67, total protein 4.5, and albumin 2.3. Urinalysis negative. Synovial fluid, WBC 115, RBC 42,695, with neutrophils 80, lymphocytes 19. Vancomycin trough level 17.1. Microbiology, urine culture, no growth. Nasal smear MRSA negative. IMPRESSION: An 82-year-old female status post right hip fracture, status post right total hip replacement 3 weeks ago, admitted with cellulitis, treated with vancomycin and levofloxacin. Culture grew Klebsiella pneumoniae status post debridement, washout and wound VAC placement, under anesthesia and femoral nerve block. Hemodynamically stable, admitted to ICU for overnight observation of hemodynamic stability, closely monitor electrolytes, transfuse as needed. We will continue deep venous thrombosis and gastrointestinal prophylaxis. Continue on high-flow nasal oxygen, maintain saturation over 94, monitor CO2 retention, continue Diamox 250 mg twice daily, DuoNeb 3 mL q.i.d., vitamin C 500 mg daily, atorvastatin 20 mg daily, Xalatan eye drops at bedtime, and magnesium oxide 400 mg b.i.d. Mark Gutiérrez MD
[2017-07-12] MEDS: Magnesium Oxide 400 mg Tab UD PO SCH ×2 (08:51→18:14)
[2017-07-12] MEDS: Enoxaparin 40 mg Syringe SC SCH (08:51)
[2017-07-12] MEDS: Santyl Collagenase OINTMENT TOP SCH (08:52)
[2017-07-12] MEDS: Multivitamin With Minerals Tab PO SCH (09:00)
[2017-07-12] MEDS: levoFLOXacin 750 mg in D5W 750 MG/150 ML BAG IVPB SCH (10:00)
--- NOTE | 2017-07-12 10:17 | CP.PCM.PN ---
Subjective - Date & Time of Evaluation Date of Evaluation: 07/12/17 Time of Evaluation: 10:00 - Subjective Subjective: NO CHEST PAIN OR SOB Objective - Vital Signs/Intake and Output Vital Signs (last 24 hours): Temp Pulse Resp BP Pulse Ox 98.1 F 78 15 106/55 L 95 07/12/17 08:00 07/12/17 08:00 07/12/17 08:25 07/12/17 08:00 07/12/17 08:00 Intake and Output: 07/12/17 07/12/17 06:59 18:59 Intake Total 1300 Balance 1300 - Medications Medications: Current Medications Acetaminophen (Tylenol 325mg Tab) 650 mg PO Q6 PRN PRN Reason: Pain, Mild (1-3) Last Admin: 07/10/17 00:00 Dose: 650 mg Albuterol/Ipratropium (Duoneb 3 Mg/0.5 Mg (3 Ml) Ud) 3 ml INH RQID [facility] Last Admin: 07/12/17 08:24 Dose: Not Given Ascorbic Acid (Vitamin C 500 Mg Tab) 500 mg PO DAILY [facility] Last Admin: 07/12/17 08:52 Dose: 500 mg Aspirin (Ecotrin) 81 mg PO DAILY [facility] Last Admin: 07/12/17 08:51 Dose: 81 mg Atorvastatin Calcium (Lipitor) 20 mg PO HS [facility] Last Admin: 07/11/17 21:49 Dose: 20 mg Collagenase (Santyl) 1 applic TOP DAILY [facility] Last Admin: 07/12/17 08:52 Dose: 1 applic Enoxaparin Sodium (Lovenox) 40 mg SC DAILY [facility] PRN Reason: Protocol Last Admin: 07/12/17 08:51 Dose: 40 mg Levofloxacin/Dextrose (Levaquin 750mg) 750 mg in 150 mls @ 100 mls/hr IVPB DAILY [facility] Last Admin: 07/11/17 10:00 Dose: 100 mls/hr Vancomycin HCl 1 gm/ Sodium (Chloride) 250 mls @ 166.667 mls/hr IVPB Q24H [facility] PRN Reason: Protocol Last Admin: 07/11/17 15:45 Dose: 166.667 mls/hr Sodium Chloride (Sodium Chloride 0.9%) 1,000 mls @ 100 mls/hr IV .Q10H [facility] Last Admin: 07/12/17 01:43 Dose: 100 mls/hr Latanoprost (Xalatan Opht) 1 drop OD HS [facility] Last Admin: 07/11/17 21:47 Dose: 1 drop Magnesium Oxide (Mag-Ox) 400 mg PO BID [facility] Last Admin: 07/12/17 08:51 Dose: 400 mg Multivitamins/Minerals (Therapeutic-M Tab) 1 tab PO DAILY [facility] Last Admin: 07/11/17 09:45 Dose: 1 tab Sennosides (Senokot Tab) 17.2 mg PO HS [facility] Last Admin: 07/11/17 21:49 Dose: 17.2 mg - Labs Labs: 07/12/17 04:10 07/12/17 04:10 PT 12.2 Seconds (9.8-13.1) 07/05/17 18:40 INR 1.1 (0.9-1.2) 07/05/17 18:40 APTT 29.6 Seconds (25.6-37.1) 07/05/17 18:40 - Respiratory Exam Respiratory Exam: Clear to Ausculation Bilateral - Cardiovascular Exam Cardiovascular Exam: REGULAR RHYTHM, +S1, +S2 - Additional Findings Additional findings: ELECTRICAL HIGH TENSION TESTER NSR Assessment and Plan - Assessment and Plan (Free Text) Assessment: S/P ABRASION OF RIGHT HIP WOUND SITE WITH SURGICAL DEBRIDEMENT CARDIOMYOPATHY HYPERTENSION HYPERLIPIDEMIA Plan: CONTINUE ASPIRIN, LOVENOX AND ATORVASTATIN WILL BEGIN DIGOXIN FOR CARDIOMYOPATHY CARVEDILOL ON HOLD DUE TO LOW NORMAL BLOOD PRESSURE FOR TRANSFER TO REGULAR FLOOR
[2017-07-12] MEDS ORDERED: Digoxin 250 mcg (0.25 mg) Tab PO ONE (10:45)
--- NOTE | 2017-07-12 12:56 | CP.PCM.PN ---
Subjective - Date & Time of Evaluation Date of Evaluation: 07/12/17 Time of Evaluation: 12:54 - Subjective Subjective: Patient doing much better no chest pain shortness of breath. Blood tests reviewed and showed CO2 has been corrected no more metabolic alkalosis. Patient is not on Diamox. Kidney function has been stable. Serum electrolytes stable except of mild hypokalemia patient needs supplemental potassium chloride. Follow-up as needed thank you Objective - Vital Signs/Intake and Output Vital Signs (last 24 hours): Temp Pulse Resp BP Pulse Ox 98.3 F 85 14 112/56 L 99 07/12/17 12:00 07/12/17 12:00 07/12/17 12:00 07/12/17 12:00 07/12/17 12:00 Intake and Output: 07/12/17 07/12/17 06:59 18:59 Intake Total 1300 Balance 1300 - Medications Medications: Current Medications Acetaminophen (Tylenol 325mg Tab) 650 mg PO Q6 PRN PRN Reason: Pain, Mild (1-3) Last Admin: 07/10/17 00:00 Dose: 650 mg Albuterol/Ipratropium (Duoneb 3 Mg/0.5 Mg (3 Ml) Ud) 3 ml INH RQID [facility] Last Admin: 07/12/17 12:11 Dose: Not Given Ascorbic Acid (Vitamin C 500 Mg Tab) 500 mg PO DAILY [facility] Last Admin: 07/12/17 08:52 Dose: 500 mg Aspirin (Ecotrin) 81 mg PO DAILY [facility] Last Admin: 07/12/17 08:51 Dose: 81 mg Atorvastatin Calcium (Lipitor) 20 mg PO HS [facility] Last Admin: 07/11/17 21:49 Dose: 20 mg Collagenase (Santyl) 1 applic TOP DAILY [facility] Last Admin: 07/12/17 08:52 Dose: 1 applic Digoxin (Lanoxin) 0.125 mg PO DAILY [facility] Enoxaparin Sodium (Lovenox) 40 mg SC DAILY [facility] PRN Reason: Protocol Last Admin: 07/12/17 08:51 Dose: 40 mg Levofloxacin/Dextrose (Levaquin 750mg) 750 mg in 150 mls @ 100 mls/hr IVPB DAILY [facility] Last Admin: 07/11/17 10:00 Dose: 100 mls/hr Vancomycin HCl 1 gm/ Sodium (Chloride) 250 mls @ 166.667 mls/hr IVPB Q24H [facility] PRN Reason: Protocol Last Admin: 07/11/17 15:45 Dose: 166.667 mls/hr Sodium Chloride (Sodium Chloride 0.9%) 1,000 mls @ 100 mls/hr IV .Q10H [facility] Last Admin: 07/12/17 01:43 Dose: 100 mls/hr Latanoprost (Xalatan Opht) 1 drop OD HS [facility] Last Admin: 07/11/17 21:47 Dose: 1 drop Magnesium Oxide (Mag-Ox) 400 mg PO BID [facility] Last Admin: 07/12/17 08:51 Dose: 400 mg Multivitamins/Minerals (Therapeutic-M Tab) 1 tab PO DAILY [facility] Last Admin: 07/11/17 09:45 Dose: 1 tab Sennosides (Senokot Tab) 17.2 mg PO HS [facility] Last Admin: 07/11/17 21:49 Dose: 17.2 mg - Labs Labs: 07/12/17 04:10 07/12/17 04:10 PT 12.2 Seconds (9.8-13.1) 07/05/17 18:40 INR 1.1 (0.9-1.2) 07/05/17 18:40 APTT 29.6 Seconds (25.6-37.1) 07/05/17 18:40
--- NOTE | 2017-07-12 14:12 | CP.PCM.PN ---
Subjective - Date & Time of Evaluation Date of Evaluation: 07/12/17 Time of Evaluation: 09:00 - Subjective Subjective: IMPROVING AFEBRILE ALERT OR CULTURES NOTED CONT IV RX / WOUND CARE Objective - Vital Signs/Intake and Output Vital Signs (last 24 hours): Temp Pulse Resp BP Pulse Ox 98.3 F 85 14 112/56 L 99 07/12/17 12:00 07/12/17 12:00 07/12/17 12:00 07/12/17 12:00 07/12/17 12:00 Intake and Output: 07/12/17 07/12/17 06:59 18:59 Intake Total 1300 Balance 1300 - Medications Medications: Current Medications Acetaminophen (Tylenol 325mg Tab) 650 mg PO Q6 PRN PRN Reason: Pain, Mild (1-3) Last Admin: 07/10/17 00:00 Dose: 650 mg Albuterol/Ipratropium (Duoneb 3 Mg/0.5 Mg (3 Ml) Ud) 3 ml INH RQID [facility] Last Admin: 07/12/17 12:11 Dose: Not Given Ascorbic Acid (Vitamin C 500 Mg Tab) 500 mg PO DAILY [facility] Last Admin: 07/12/17 08:52 Dose: 500 mg Aspirin (Ecotrin) 81 mg PO DAILY [facility] Last Admin: 07/12/17 08:51 Dose: 81 mg Atorvastatin Calcium (Lipitor) 20 mg PO HS [facility] Last Admin: 07/11/17 21:49 Dose: 20 mg Collagenase (Santyl) 1 applic TOP DAILY [facility] Last Admin: 07/12/17 08:52 Dose: 1 applic Digoxin (Lanoxin) 0.125 mg PO DAILY [facility] Enoxaparin Sodium (Lovenox) 40 mg SC DAILY [facility] PRN Reason: Protocol Last Admin: 07/12/17 08:51 Dose: 40 mg Levofloxacin/Dextrose (Levaquin 750mg) 750 mg in 150 mls @ 100 mls/hr IVPB DAILY [facility] Last Admin: 07/11/17 10:00 Dose: 100 mls/hr Vancomycin HCl 1 gm/ Sodium (Chloride) 250 mls @ 166.667 mls/hr IVPB Q24H [facility] PRN Reason: Protocol Last Admin: 07/11/17 15:45 Dose: 166.667 mls/hr Sodium Chloride (Sodium Chloride 0.9%) 1,000 mls @ 100 mls/hr IV .Q10H [facility] Last Admin: 07/12/17 01:43 Dose: 100 mls/hr Latanoprost (Xalatan Opht) 1 drop OD HS [facility] Last Admin: 07/11/17 21:47 Dose: 1 drop Magnesium Oxide (Mag-Ox) 400 mg PO BID [facility] Last Admin: 07/12/17 08:51 Dose: 400 mg Multivitamins/Minerals (Therapeutic-M Tab) 1 tab PO DAILY [facility] Last Admin: 07/11/17 09:45 Dose: 1 tab Sennosides (Senokot Tab) 17.2 mg PO HS [facility] Last Admin: 07/11/17 21:49 Dose: 17.2 mg - Labs Labs: 07/12/17 04:10 07/12/17 04:10 PT 12.2 Seconds (9.8-13.1) 07/05/17 18:40 INR 1.1 (0.9-1.2) 07/05/17 18:40 APTT 29.6 Seconds (25.6-37.1) 07/05/17 18:40 - Constitutional Appears: Non-toxic, Chronically Ill - Head Exam Head Exam: NORMOCEPHALIC - Eye Exam Eye Exam: PERRL. absent: Scleral icterus - ENT Exam ENT Exam: Mucous Membranes Dry - Neck Exam Neck Exam: absent: Lymphadenopathy - Respiratory Exam Respiratory Exam: Decreased Breath Sounds - Cardiovascular Exam Cardiovascular Exam: REGULAR RHYTHM - GI/Abdominal Exam GI & Abdominal Exam: Distended, Soft - Rectal Exam Rectal Exam: Deferred - Exam Exam: NORMAL INSPECTION - Extremities Exam Extremities Exam: absent: Pedal Edema - Back Exam Back Exam: absent: CVA tenderness (L), CVA tenderness (R) - Neurological Exam Neurological Exam: Alert, Awake - Psychiatric Exam Psychiatric exam: Depressed - Skin Skin Exam: Dry Assessment and Plan (1) Cellulitis Status: Acute
[2017-07-12] MEDS ORDERED: Povidone Iodine Topical 10% Sol ONE (16:02)
--- NOTE | 2017-07-12 16:19 | CP.PCM.PN ---
Subjective - Date & Time of Evaluation Date of Evaluation: 07/12/17 Time of Evaluation: 17:45 - Subjective Subjective: Patient offers no complaints of hip pain. She was encouraged to participate in PT, and reinforced that is per Dr. Gil's orders. Objective - Vital Signs/Intake and Output Vital Signs (last 24 hours): Temp Pulse Resp BP Pulse Ox 98.3 F 85 14 112/56 L 99 07/12/17 12:00 07/12/17 12:00 07/12/17 12:00 07/12/17 12:00 07/12/17 12:00 Intake and Output: 07/12/17 07/12/17 06:59 18:59 Intake Total 1300 Balance 1300 - Medications Medications: Current Medications Acetaminophen (Tylenol 325mg Tab) 650 mg PO Q6 PRN PRN Reason: Pain, Mild (1-3) Last Admin: 07/10/17 00:00 Dose: 650 mg Albuterol/Ipratropium (Duoneb 3 Mg/0.5 Mg (3 Ml) Ud) 3 ml INH RQID [facility] Last Admin: 07/12/17 12:11 Dose: Not Given Ascorbic Acid (Vitamin C 500 Mg Tab) 500 mg PO DAILY [facility] Last Admin: 07/12/17 08:52 Dose: 500 mg Aspirin (Ecotrin) 81 mg PO DAILY [facility] Last Admin: 07/12/17 08:51 Dose: 81 mg Atorvastatin Calcium (Lipitor) 20 mg PO HS [facility] Last Admin: 07/11/17 21:49 Dose: 20 mg Collagenase (Santyl) 1 applic TOP DAILY [facility] Last Admin: 07/12/17 08:52 Dose: 1 applic Digoxin (Lanoxin) 0.125 mg PO DAILY [facility] Enoxaparin Sodium (Lovenox) 40 mg SC DAILY [facility] PRN Reason: Protocol Last Admin: 07/12/17 08:51 Dose: 40 mg Levofloxacin/Dextrose (Levaquin 750mg) 750 mg in 150 mls @ 100 mls/hr IVPB DAILY [facility] Last Admin: 07/12/17 10:00 Dose: 100 mls/hr Vancomycin HCl 1 gm/ Sodium (Chloride) 250 mls @ 166.667 mls/hr IVPB Q24H [facility] PRN Reason: Protocol Last Admin: 07/12/17 15:15 Dose: 166.667 mls/hr Sodium Chloride (Sodium Chloride 0.9%) 1,000 mls @ 100 mls/hr IV .Q10H [facility] Last Admin: 07/12/17 01:43 Dose: 100 mls/hr Latanoprost (Xalatan Opht) 1 drop OD HS [facility] Last Admin: 07/11/17 21:47 Dose: 1 drop Magnesium Oxide (Mag-Ox) 400 mg PO BID [facility] Last Admin: 07/12/17 08:51 Dose: 400 mg Multivitamins/Minerals (Therapeutic-M Tab) 1 tab PO DAILY [facility] Last Admin: 07/12/17 09:00 Dose: Not Given Sennosides (Senokot Tab) 17.2 mg PO HS [facility] Last Admin: 07/11/17 21:49 Dose: 17.2 mg - Labs Labs: 07/12/17 04:10 07/12/17 04:10 PT 12.2 Seconds (9.8-13.1) 07/05/17 18:40 INR 1.1 (0.9-1.2) 07/05/17 18:40 APTT 29.6 Seconds (25.6-37.1) 07/05/17 18:40 - Extremities Exam Additional comments: Right hip dressing change: incision intact, scant drainage, no erythema around incision site. +ROM ankle/toes, sensation intact, calves soft NT neg homans +DP pulse Assessment and Plan (1) Cellulitis Assessment & Plan: POD#2 s/p right hip I&D, superficial -PT/OT -VTE proph -Dressing changes/wound checks -abx per ID -d/w Dr. Gil, agrees with above Status: Acute
--- NOTE | 2017-07-12 19:02 | CP.PCM.PN ---
Subjective - Date & Time of Evaluation Date of Evaluation: 07/12/17 Time of Evaluation: 22:22 - Subjective Subjective: POD #2 Afebrile Objective - Vital Signs/Intake and Output Vital Signs (last 24 hours): Temp Pulse Resp BP Pulse Ox 97.3 F L 95 H 18 137/78 95 07/12/17 16:45 07/12/17 16:45 07/12/17 16:45 07/12/17 16:45 07/12/17 16:45 Intake and Output: 07/12/17 07/13/17 18:59 06:59 Intake Total 800 Balance 800 - Medications Medications: Current Medications Acetaminophen (Tylenol 325mg Tab) 650 mg PO Q6 PRN PRN Reason: Pain, Mild (1-3) Last Admin: 07/10/17 00:00 Dose: 650 mg Albuterol/Ipratropium (Duoneb 3 Mg/0.5 Mg (3 Ml) Ud) 3 ml INH RQID [facility] Last Admin: 07/12/17 12:11 Dose: Not Given Ascorbic Acid (Vitamin C 500 Mg Tab) 500 mg PO DAILY [facility] Last Admin: 07/12/17 08:52 Dose: 500 mg Aspirin (Ecotrin) 81 mg PO DAILY [facility] Last Admin: 07/12/17 08:51 Dose: 81 mg Atorvastatin Calcium (Lipitor) 20 mg PO HS [facility] Last Admin: 07/11/17 21:49 Dose: 20 mg Collagenase (Santyl) 1 applic TOP DAILY [facility] Last Admin: 07/12/17 08:52 Dose: 1 applic Digoxin (Lanoxin) 0.125 mg PO DAILY [facility] Enoxaparin Sodium (Lovenox) 40 mg SC DAILY [facility] PRN Reason: Protocol Last Admin: 07/12/17 08:51 Dose: 40 mg Levofloxacin/Dextrose (Levaquin 750mg) 750 mg in 150 mls @ 100 mls/hr IVPB DAILY [facility] Last Admin: 07/12/17 10:00 Dose: 100 mls/hr Vancomycin HCl 1 gm/ Sodium (Chloride) 250 mls @ 166.667 mls/hr IVPB Q24H [facility] PRN Reason: Protocol Last Admin: 07/12/17 15:15 Dose: 166.667 mls/hr Sodium Chloride (Sodium Chloride 0.9%) 1,000 mls @ 100 mls/hr IV .Q10H [facility] Last Admin: 07/12/17 01:43 Dose: 100 mls/hr Latanoprost (Xalatan Opht) 1 drop OD HS [facility] Last Admin: 07/11/17 21:47 Dose: 1 drop Magnesium Oxide (Mag-Ox) 400 mg PO BID [facility] Last Admin: 07/12/17 18:14 Dose: 400 mg Multivitamins/Minerals (Therapeutic-M Tab) 1 tab PO DAILY [facility] Last Admin: 07/12/17 09:00 Dose: Not Given Sennosides (Senokot Tab) 17.2 mg PO HS [facility] Last Admin: 07/11/17 21:49 Dose: 17.2 mg Tramadol HCl (Ultram) 50 mg PO Q6 PRN PRN Reason: Pain, moderate (4-7) - Labs Labs: 07/12/17 04:10 07/12/17 04:10 PT 12.2 Seconds (9.8-13.1) 07/05/17 18:40 INR 1.1 (0.9-1.2) 07/05/17 18:40 APTT 29.6 Seconds (25.6-37.1) 07/05/17 18:40 - Respiratory Exam Respiratory Exam: NORMAL BREATHING PATTERN - Cardiovascular Exam Cardiovascular Exam: REGULAR RHYTHM - GI/Abdominal Exam GI & Abdominal Exam: Normal Bowel Sounds Assessment and Plan - Assessment and Plan (Free Text) Assessment: S/P R Hip THR S/P wound I&D Ortho ID Plastic ABX COPD Hypoxia Chronic? Pulmonary consult Metabolic alkalosis 2 to above Nephrology consult appreciated Diamox d/c Anemia etiol? s/p THR repeat Hbg 9 S/P NSTEMI HTN cadiomyopathy Cardiology Adj Rxn refusing therapy?? Seen by Psych
[2017-07-12] MEDS: Latanoprost 0.005% Opht SOUTION OD SCH (23:05)
[2017-07-13] MEDS: Albuterol-Ipratrop 3 mg / 0.5 (3 ml) UD INH SCH ×4 (07:48→19:11)
--- NOTE | 2017-07-13 08:46 | PQF GENQUE ---
This form is a permanent part of the medical record 07/13/17 Dr. Dolores Means, The attending physician is required to clarify conflicting documentation in the medical record. The following documentation is noted in the medical record. Please document which of the following is ruled in and which diagnosis is ruled out or other explanation (please specify) Patient presents with redness and discharge of the R hip wound s/p THR. 07/07 H&P : S/P R Hip THR wound infection. Progress notes 07/11 through current date do not include this diagnosis anymore. Ortho: Wound excoriation, no evidence for deep sepsis. Operation Performed: Incision drainage L hip incision. excision skin/ subcutaneous tissue/portion of muscle. &insertion abio impregnated Ca so4 granules. Clarification of your documentation is requested to better reflect the severity of illness and intensity of treatment of your patient. Indicators present [] Specify: [] [] Specify: [] [] Specify: [] [] Specify: [] Location in the medical record that reflects the above clinical findings: [] Treatment Provided: [] PHYSICIAN'S RESPONSE Based on your medical judgment of the clinical indicators outlined above please clarify the following: [] Practitioner response [] If unable to determine, please check the box, sign and date. Present On Admission (POA) Indicator: [] Present at the time of admission [] Not present at the time of admission [] Clinically Undetermined In responding to this query, please exercise your independent professional judgment. The fact that a question is asked does not imply that any particular answer is desired or expected. Thank you for your clarification on this documentation. If you have any questions please call:extension [phone] * Thank you, Noemi Jamison RN CDMP [facility]
--- NOTE | 2017-07-13 09:18 | PQF GENQUE ---
This form is a permanent part of the medical record 07/13/17 Dr. Godinez, Would you please clarify if there is an associated diagnosis or not to go along with the Na level of 130. IVF given. Clarification of your documentation is requested to better reflect the severity of illness and intensity of treatment of your patient. Indicators present [] Specify: [] [] Specify: [] [] Specify: [] [] Specify: [] Location in the medical record that reflects the above clinical findings: [] Treatment Provided: [] PHYSICIAN'S RESPONSE Based on your medical judgment of the clinical indicators outlined above please clarify the following: [] Practitioner response [] If unable to determine, please check the box, sign and date. Present On Admission (POA) Indicator: [] Present at the time of admission [] Not present at the time of admission [] Clinically Undetermined In responding to this query, please exercise your independent professional judgment. The fact that a question is asked does not imply that any particular answer is desired or expected. Thank you for your clarification on this documentation. If you have any questions please call:ext [phone] * Thank you, Noemi Jamison RN CDMP [facility]
[2017-07-13] MEDS: Digoxin 125 mcg (0.125 mg) Tab PO SCH (10:08)
[2017-07-13] MEDS: Enoxaparin 40 mg Syringe SC SCH (10:08)
[2017-07-13] MEDS: Multivitamin With Minerals Tab PO SCH (10:09)
[2017-07-13] MEDS: Magnesium Oxide 400 mg Tab UD PO SCH ×2 (10:09→16:42)
[2017-07-13] MEDS: Santyl Collagenase OINTMENT TOP SCH (10:09)
[2017-07-13] MEDS: Latanoprost 0.005% Opht SOUTION OD SCH (10:10)
--- NOTE | 2017-07-13 10:13 | RAD ---
HISTORY: f/u COMPARISON: Chest radiograph dated 07/05/2017. FINDINGS: LUNGS: Bibasilar atelectasis. PLEURA: Small bilateral pleural effusions. No pneumothorax apparent. CARDIOVASCULAR: Atherosclerotic aortic calcifications. Cardiomediastinal silhouette stably prominent. OSSEOUS STRUCTURES: Unchanged. VISUALIZED UPPER ABDOMEN: Normal. OTHER FINDINGS: New right upper extremity PICC with catheter tip at the junction of the subclavian and internal jugular veins. IMPRESSION: Small bilateral pleural effusions.
[2017-07-13 10:32] LABS: HEMATOCRIT 32.3 % (34.0-47.0); MEAN CELL VOLUME 99.9 fl (81.0-99.0); MEAN CORPUSCULAR HEMOGLOBIN 33.6 pg (27.0-31.0); MEAN CORPUSCULAR HGB CONC 33.7 g/dL (33.0-37.0); RED CELL DISTRIBUTION WIDTH 16.7 % (11.5-14.5); WHITE BLOOD COUNT 5.7 K/uL (4.8-10.8)
[2017-07-13 10:42] LABS: BLOOD UREA NITROGEN 8 mg/dl (7-17); CALCIUM 9.4 mg/dL (8.4-10.2); CARBON DIOXIDE 30 mmol/L (22-30); CHLORIDE 101 mmol/L (98-107); GFR AFRICAN-AMERICAN > 60; GLUCOSE,RANDOM 117 mg/dL (65-105); POTASSIUM 3.5 MMOL/L (3.6-5.0); SODIUM 134 mmol/l (132-148)
--- NOTE | 2017-07-13 11:49 | CP.PCM.PN ---
Subjective - Date & Time of Evaluation Date of Evaluation: 07/13/17 Time of Evaluation: 10:45 - Subjective Subjective: NO NEW COMPLAINTS Objective - Vital Signs/Intake and Output Vital Signs (last 24 hours): Temp Pulse Resp BP Pulse Ox 98.5 F 80 20 96/57 L 95 07/13/17 08:00 07/13/17 08:00 07/13/17 08:00 07/13/17 08:00 07/13/17 08:00 - Medications Medications: Current Medications Acetaminophen (Tylenol 325mg Tab) 650 mg PO Q6 PRN PRN Reason: Pain, Mild (1-3) Last Admin: 07/10/17 00:00 Dose: 650 mg Albuterol/Ipratropium (Duoneb 3 Mg/0.5 Mg (3 Ml) Ud) 3 ml INH RQID [facility] Last Admin: 07/13/17 11:03 Dose: Not Given Ascorbic Acid (Vitamin C 500 Mg Tab) 500 mg PO DAILY [facility] Last Admin: 07/13/17 10:10 Dose: 500 mg Aspirin (Ecotrin) 81 mg PO DAILY [facility] Last Admin: 07/13/17 10:09 Dose: 81 mg Atorvastatin Calcium (Lipitor) 20 mg PO QAM [facility] Last Admin: 07/13/17 10:08 Dose: 20 mg Collagenase (Santyl) 1 applic TOP DAILY [facility] Last Admin: 07/13/17 10:09 Dose: 1 applic Digoxin (Lanoxin) 0.125 mg PO DAILY [facility] Last Admin: 07/13/17 10:08 Dose: 0.125 mg Enoxaparin Sodium (Lovenox) 40 mg SC DAILY [facility] PRN Reason: Protocol Last Admin: 07/13/17 10:08 Dose: 40 mg Levofloxacin/Dextrose (Levaquin 750mg) 750 mg in 150 mls @ 100 mls/hr IVPB DAILY [facility] Last Admin: 07/12/17 10:00 Dose: 100 mls/hr Vancomycin HCl 1 gm/ Sodium (Chloride) 250 mls @ 166.667 mls/hr IVPB Q24H [facility] PRN Reason: Protocol Last Admin: 07/12/17 15:15 Dose: 166.667 mls/hr Latanoprost (Xalatan Opht) 1 drop OD QAM [facility] Magnesium Oxide (Mag-Ox) 400 mg PO BID [facility] Last Admin: 07/13/17 10:09 Dose: 400 mg Multivitamins/Minerals (Therapeutic-M Tab) 1 tab PO DAILY [facility] Last Admin: 07/13/17 10:09 Dose: 1 tab Sennosides (Senokot Tab) 17.2 mg PO HS [facility] Last Admin: 07/12/17 23:05 Dose: Not Given Tramadol HCl (Ultram) 50 mg PO Q6 PRN PRN Reason: Pain, moderate (4-7) Last Admin: 07/13/17 06:08 Dose: 50 mg - Labs Labs: 07/13/17 10:22 07/13/17 10:22 PT 12.2 Seconds (9.8-13.1) 07/05/17 18:40 INR 1.1 (0.9-1.2) 07/05/17 18:40 APTT 29.6 Seconds (25.6-37.1) 07/05/17 18:40 - Respiratory Exam Respiratory Exam: Clear to Ausculation Bilateral - Cardiovascular Exam Cardiovascular Exam: REGULAR RHYTHM, +S1, +S2 - Extremities Exam Extremities Exam: Normal Inspection - Additional Findings 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
[2017-07-13] MEDS: levoFLOXacin 750 mg in D5W 750 MG/150 ML BAG IVPB SCH (12:02)
--- NOTE | 2017-07-13 12:14 | CP.PCM.PN ---
Subjective - Date & Time of Evaluation Date of Evaluation: 07/13/17 Time of Evaluation: 12:05 - Subjective Subjective: Seen on rounds in telemetry, Found lying in bed, semi-upright. Has refused physical therapy this morning. States she will be willing to get OOB to a chair today. Chest x-ray shows developing bibasal atelectasis with small effusions. On exam there is no dullness on percussion of the anterior chest wall. Breath sounds are diminished posteriorly in the lower lobes bilaterally. No audible bronchial breathing of egophony. No wheezes. She has been unenthusiastic with regards to physical therapy and has been warned that this will lead to further complications. She claims to understand and will get OOB today, but cooperation with physical therapy remains to be seen. Objective - Vital Signs/Intake and Output Vital Signs (last 24 hours): Temp Pulse Resp BP Pulse Ox 98.2 F 84 18 111/70 95 07/13/17 12:00 07/13/17 12:00 07/13/17 12:00 07/13/17 12:00 07/13/17 12:00 - Medications Medications: Current Medications Acetaminophen (Tylenol 325mg Tab) 650 mg PO Q6 PRN PRN Reason: Pain, Mild (1-3) Last Admin: 07/10/17 00:00 Dose: 650 mg Albuterol/Ipratropium (Duoneb 3 Mg/0.5 Mg (3 Ml) Ud) 3 ml INH RQID [facility] Last Admin: 07/13/17 11:03 Dose: Not Given Ascorbic Acid (Vitamin C 500 Mg Tab) 500 mg PO DAILY [facility] Last Admin: 07/13/17 10:10 Dose: 500 mg Aspirin (Ecotrin) 81 mg PO DAILY [facility] Last Admin: 07/13/17 10:09 Dose: 81 mg Atorvastatin Calcium (Lipitor) 20 mg PO QAM [facility] Last Admin: 07/13/17 10:08 Dose: 20 mg Collagenase (Santyl) 1 applic TOP DAILY [facility] Last Admin: 07/13/17 10:09 Dose: 1 applic Digoxin (Lanoxin) 0.125 mg PO DAILY [facility] Last Admin: 07/13/17 10:08 Dose: 0.125 mg Enoxaparin Sodium (Lovenox) 40 mg SC DAILY [facility] PRN Reason: Protocol Last Admin: 07/13/17 10:08 Dose: 40 mg Levofloxacin/Dextrose (Levaquin 750mg) 750 mg in 150 mls @ 100 mls/hr IVPB DAILY [facility] Last Admin: 07/13/17 12:02 Dose: 100 mls/hr Vancomycin HCl 1 gm/ Sodium (Chloride) 250 mls @ 166.667 mls/hr IVPB Q24H [facility] PRN Reason: Protocol Last Admin: 07/12/17 15:15 Dose: 166.667 mls/hr Latanoprost (Xalatan Opht) 1 drop OD QAM [facility] Magnesium Oxide (Mag-Ox) 400 mg PO BID [facility] Last Admin: 07/13/17 10:09 Dose: 400 mg Multivitamins/Minerals (Therapeutic-M Tab) 1 tab PO DAILY [facility] Last Admin: 07/13/17 10:09 Dose: 1 tab Sennosides (Senokot Tab) 17.2 mg PO HS [facility] Last Admin: 07/12/17 23:05 Dose: Not Given Tramadol HCl (Ultram) 50 mg PO Q6 PRN PRN Reason: Pain, moderate (4-7) Last Admin: 07/13/17 06:08 Dose: 50 mg - Labs Labs: 07/13/17 10:22 07/13/17 10:22 PT 12.2 Seconds (9.8-13.1) 07/05/17 18:40 INR 1.1 (0.9-1.2) 07/05/17 18:40 APTT 29.6 Seconds (25.6-37.1) 07/05/17 18:40 Assessment and Plan (1) Surgical site infection Status: Acute (2) Pulmonary emphysema determined by X-ray Status: Chronic (3) Hypercapnia Status: Acute
--- NOTE | 2017-07-13 16:53 | CP.PCM.PN ---
Subjective - Date & Time of Evaluation Date of Evaluation: 07/13/17 Time of Evaluation: 10:00 - Subjective Subjective: bed bound NAD afebrile wound healing right hip Objective - Vital Signs/Intake and Output Vital Signs (last 24 hours): Temp Pulse Resp BP Pulse Ox 97.6 F 85 16 103/67 98 07/13/17 15:32 07/13/17 15:32 07/13/17 15:32 07/13/17 15:32 07/13/17 15:32 - Medications Medications: Current Medications Acetaminophen (Tylenol 325mg Tab) 650 mg PO Q6 PRN PRN Reason: Pain, Mild (1-3) Last Admin: 07/10/17 00:00 Dose: 650 mg Albuterol/Ipratropium (Duoneb 3 Mg/0.5 Mg (3 Ml) Ud) 3 ml INH RQID [facility] Last Admin: 07/13/17 15:49 Dose: Not Given Ascorbic Acid (Vitamin C 500 Mg Tab) 500 mg PO DAILY [facility] Last Admin: 07/13/17 10:10 Dose: 500 mg Aspirin (Ecotrin) 81 mg PO DAILY [facility] Last Admin: 07/13/17 10:09 Dose: 81 mg Atorvastatin Calcium (Lipitor) 20 mg PO QAM [facility] Last Admin: 07/13/17 10:08 Dose: 20 mg Collagenase (Santyl) 1 applic TOP DAILY [facility] Last Admin: 07/13/17 10:09 Dose: 1 applic Digoxin (Lanoxin) 0.125 mg PO DAILY [facility] Last Admin: 07/13/17 10:08 Dose: 0.125 mg Enoxaparin Sodium (Lovenox) 40 mg SC DAILY [facility] PRN Reason: Protocol Last Admin: 07/13/17 10:08 Dose: 40 mg Levofloxacin/Dextrose (Levaquin 750mg) 750 mg in 150 mls @ 100 mls/hr IVPB DAILY [facility] Last Admin: 07/13/17 12:02 Dose: 100 mls/hr Vancomycin HCl 1 gm/ Sodium (Chloride) 250 mls @ 166.667 mls/hr IVPB Q24H [facility] PRN Reason: Protocol Last Admin: 07/13/17 16:42 Dose: 166.667 mls/hr Latanoprost (Xalatan Opht) 1 drop OD QAM [facility] Magnesium Oxide (Mag-Ox) 400 mg PO BID [facility] Last Admin: 07/13/17 16:42 Dose: 400 mg Multivitamins/Minerals (Therapeutic-M Tab) 1 tab PO DAILY [facility] Last Admin: 07/13/17 10:09 Dose: 1 tab Sennosides (Senokot Tab) 17.2 mg PO HS [facility] Last Admin: 07/12/17 23:05 Dose: Not Given Tramadol HCl (Ultram) 50 mg PO Q6 PRN PRN Reason: Pain, moderate (4-7) Last Admin: 07/13/17 06:08 Dose: 50 mg - Labs Labs: 07/13/17 10:22 07/13/17 10:22 PT 12.2 Seconds (9.8-13.1) 07/05/17 18:40 INR 1.1 (0.9-1.2) 07/05/17 18:40 APTT 29.6 Seconds (25.6-37.1) 07/05/17 18:40 - Constitutional Appears: Non-toxic, Chronically Ill - Head Exam Head Exam: NORMOCEPHALIC - Eye Exam Eye Exam: PERRL - ENT Exam ENT Exam: Mucous Membranes Dry - Neck Exam Neck Exam: absent: Lymphadenopathy - Respiratory Exam Respiratory Exam: Decreased Breath Sounds, Rhonchi - Cardiovascular Exam Cardiovascular Exam: REGULAR RHYTHM - GI/Abdominal Exam GI & Abdominal Exam: Distended - Rectal Exam Rectal Exam: Deferred - Exam Exam: NORMAL INSPECTION Assessment and Plan (1) Cellulitis Status: Acute
--- NOTE | 2017-07-13 21:05 | CP.PCM.PN ---
Subjective - Date & Time of Evaluation Date of Evaluation: 07/13/17 Time of Evaluation: 22:22 - Subjective Subjective: Above note D/W pt need for PT Wants to go home? Objective - Vital Signs/Intake and Output Vital Signs (last 24 hours): Temp Pulse Resp BP Pulse Ox 98.3 F 81 16 121/68 97 07/13/17 20:01 07/13/17 20:01 07/13/17 20:01 07/13/17 20:01 07/13/17 20:01 Intake and Output: 07/13/17 07/14/17 18:59 06:59 Intake Total 900 Balance 900 - Medications Medications: Current Medications Acetaminophen (Tylenol 325mg Tab) 650 mg PO Q6 PRN PRN Reason: Pain, Mild (1-3) Last Admin: 07/10/17 00:00 Dose: 650 mg Albuterol/Ipratropium (Duoneb 3 Mg/0.5 Mg (3 Ml) Ud) 3 ml INH RQID [facility] Last Admin: 07/13/17 19:11 Dose: Not Given Ascorbic Acid (Vitamin C 500 Mg Tab) 500 mg PO DAILY [facility] Last Admin: 07/13/17 10:10 Dose: 500 mg Aspirin (Ecotrin) 81 mg PO DAILY [facility] Last Admin: 07/13/17 10:09 Dose: 81 mg Atorvastatin Calcium (Lipitor) 20 mg PO QAM [facility] Last Admin: 07/13/17 10:08 Dose: 20 mg Collagenase (Santyl) 1 applic TOP DAILY [facility] Last Admin: 07/13/17 10:09 Dose: 1 applic Digoxin (Lanoxin) 0.125 mg PO DAILY [facility] Last Admin: 07/13/17 10:08 Dose: 0.125 mg Enoxaparin Sodium (Lovenox) 40 mg SC DAILY [facility] PRN Reason: Protocol Last Admin: 07/13/17 10:08 Dose: 40 mg Levofloxacin/Dextrose (Levaquin 750mg) 750 mg in 150 mls @ 100 mls/hr IVPB DAILY [facility] Last Admin: 07/13/17 12:02 Dose: 100 mls/hr Vancomycin HCl 1 gm/ Sodium (Chloride) 250 mls @ 166.667 mls/hr IVPB Q24H [facility] PRN Reason: Protocol Last Admin: 07/13/17 16:42 Dose: 166.667 mls/hr Latanoprost (Xalatan Opht) 1 drop OD QAM [facility] Magnesium Oxide (Mag-Ox) 400 mg PO BID [facility] Last Admin: 07/13/17 16:42 Dose: 400 mg Multivitamins/Minerals (Therapeutic-M Tab) 1 tab PO DAILY [facility] Last Admin: 07/13/17 10:09 Dose: 1 tab Sennosides (Senokot Tab) 17.2 mg PO HS [facility] Last Admin: 07/12/17 23:05 Dose: Not Given Tramadol HCl (Ultram) 50 mg PO Q6 PRN PRN Reason: Pain, moderate (4-7) Last Admin: 07/13/17 18:26 Dose: 50 mg - Labs Labs: 07/13/17 10:22 07/13/17 10:22 PT 12.2 Seconds (9.8-13.1) 07/05/17 18:40 INR 1.1 (0.9-1.2) 07/05/17 18:40 APTT 29.6 Seconds (25.6-37.1) 07/05/17 18:40 - Respiratory Exam Respiratory Exam: NORMAL BREATHING PATTERN - Cardiovascular Exam Cardiovascular Exam: REGULAR RHYTHM - GI/Abdominal Exam GI & Abdominal Exam: Normal Bowel Sounds Assessment and Plan - Assessment and Plan (Free Text) Assessment: S/P R Hip THR S/P wound I&D Ortho ID Plastic ABX COPD Hypoxia Chronic? Pulmonary consult Metabolic alkalosis 2 to above Nephrology consult appreciated Diamox d/c Anemia etiol? s/p THR repeat Hbg 9 S/P NSTEMI HTN cadiomyopathy Cardiology Adj Rxn refusing therapy?? Seen by Psych
[2017-07-14] MEDS: Albuterol-Ipratrop 3 mg / 0.5 (3 ml) UD INH SCH ×3 (07:23→14:59)
[2017-07-14] MEDS: Digoxin 125 mcg (0.125 mg) Tab PO SCH (09:22)
[2017-07-14] MEDS: levoFLOXacin 750 mg in D5W 750 MG/150 ML BAG IVPB SCH (09:22)
[2017-07-14] MEDS: Enoxaparin 40 mg Syringe SC SCH ×2 (09:23→09:46)
[2017-07-14] MEDS: Magnesium Oxide 400 mg Tab UD PO SCH ×2 (09:23→16:24)
[2017-07-14] MEDS: Multivitamin With Minerals Tab PO SCH (09:23)
[2017-07-14 09:24] VITALS: PULSE 74
[2017-07-14] MEDS: Latanoprost 0.005% Opht SOUTION OD SCH (09:24)
[2017-07-14] MEDS: Santyl Collagenase OINTMENT TOP SCH (09:26)
--- NOTE | 2017-07-14 10:14 | CP.PCM.PN ---
Subjective - Date & Time of Evaluation Date of Evaluation: 07/14/17 Time of Evaluation: 10:10 - Subjective Subjective: Patient complaining of right hip pain. Participation in PT encouraged. Objective - Vital Signs/Intake and Output Vital Signs (last 24 hours): Temp Pulse Resp BP Pulse Ox 97.4 F L 74 18 103/65 99 07/14/17 07:53 07/14/17 07:53 07/14/17 07:53 07/14/17 07:53 07/14/17 07:53 Intake and Output: 07/14/17 07/14/17 06:59 18:59 Intake Total 900 Balance 900 - Medications Medications: Current Medications Acetaminophen (Tylenol 325mg Tab) 650 mg PO Q6 PRN PRN Reason: Pain, Mild (1-3) Last Admin: 07/10/17 00:00 Dose: 650 mg Albuterol/Ipratropium (Duoneb 3 Mg/0.5 Mg (3 Ml) Ud) 3 ml INH RQID [facility] Last Admin: 07/14/17 07:23 Dose: Not Given Ascorbic Acid (Vitamin C 500 Mg Tab) 500 mg PO DAILY [facility] Last Admin: 07/14/17 09:23 Dose: 500 mg Aspirin (Ecotrin) 81 mg PO DAILY [facility] Last Admin: 07/14/17 09:22 Dose: 81 mg Atorvastatin Calcium (Lipitor) 20 mg PO QAM [facility] Last Admin: 07/14/17 09:22 Dose: 20 mg Collagenase (Santyl) 1 applic TOP DAILY [facility] Last Admin: 07/14/17 09:26 Dose: Not Given Digoxin (Lanoxin) 0.125 mg PO DAILY [facility] Last Admin: 07/14/17 09:22 Dose: 0.125 mg Enoxaparin Sodium (Lovenox) 40 mg SC DAILY [facility] PRN Reason: Protocol Last Admin: 07/14/17 09:46 Dose: Not Given Levofloxacin/Dextrose (Levaquin 750mg) 750 mg in 150 mls @ 100 mls/hr IVPB DAILY [facility] Last Admin: 07/14/17 09:22 Dose: 100 mls/hr Vancomycin HCl 1 gm/ Sodium (Chloride) 250 mls @ 166.667 mls/hr IVPB Q24H [facility] PRN Reason: Protocol Last Admin: 07/13/17 16:42 Dose: 166.667 mls/hr Latanoprost (Xalatan Opht) 1 drop OD QAM [facility] Last Admin: 07/14/17 09:24 Dose: Not Given Magnesium Oxide (Mag-Ox) 400 mg PO BID [facility] Last Admin: 07/14/17 09:23 Dose: 400 mg Multivitamins/Minerals (Therapeutic-M Tab) 1 tab PO DAILY [facility] Last Admin: 07/14/17 09:23 Dose: 1 tab Sennosides (Senokot Tab) 17.2 mg PO HS [facility] Last Admin: 07/13/17 21:57 Dose: 17.2 mg Tramadol HCl (Ultram) 50 mg PO Q6 PRN PRN Reason: Pain, moderate (4-7) Last Admin: 07/13/17 18:26 Dose: 50 mg - Labs Labs: 07/13/17 10:22 07/13/17 10:22 PT 12.2 Seconds (9.8-13.1) 07/05/17 18:40 INR 1.1 (0.9-1.2) 07/05/17 18:40 APTT 29.6 Seconds (25.6-37.1) 07/05/17 18:40 - Extremities Exam Additional comments: Right hip: dressing intact, dry. Noted mild swelling and erythema to thigh. Sensation itnact, calves soft NT neg homans +DP/PT Assessment and Plan (1) Cellulitis Assessment & Plan: improving s/p right hip I&D superficial and implantation of antibiotic seeds -ortho stable for d/c to rehab -dry dressing applied as incision is dry, continue daily dressing changes, betadyne wet to dry if wound drainage present -PT/OT encourage OOB -f/u Dr. Gil 7-10 days call for appointment Status: Acute
--- NOTE | 2017-07-14 11:36 | CP.PCM.PN ---
Subjective - Date & Time of Evaluation Date of Evaluation: 07/14/17 Time of Evaluation: 10:45 - Subjective Subjective: NO CHEST PAIN OR SOB Objective - Vital Signs/Intake and Output Vital Signs (last 24 hours): Temp Pulse Resp BP Pulse Ox 97.4 F L 74 18 103/65 99 07/14/17 07:53 07/14/17 07:53 07/14/17 07:53 07/14/17 07:53 07/14/17 07:53 Intake and Output: 07/14/17 07/14/17 06:59 18:59 Intake Total 900 Balance 900 - Medications Medications: Current Medications Acetaminophen (Tylenol 325mg Tab) 650 mg PO Q6 PRN PRN Reason: Pain, Mild (1-3) Last Admin: 07/10/17 00:00 Dose: 650 mg Albuterol/Ipratropium (Duoneb 3 Mg/0.5 Mg (3 Ml) Ud) 3 ml INH RQID [facility] Last Admin: 07/14/17 11:19 Dose: Not Given Ascorbic Acid (Vitamin C 500 Mg Tab) 500 mg PO DAILY [facility] Last Admin: 07/14/17 09:23 Dose: 500 mg Aspirin (Ecotrin) 81 mg PO DAILY [facility] Last Admin: 07/14/17 09:22 Dose: 81 mg Atorvastatin Calcium (Lipitor) 20 mg PO QAM [facility] Last Admin: 07/14/17 09:22 Dose: 20 mg Collagenase (Santyl) 1 applic TOP DAILY [facility] Last Admin: 07/14/17 09:26 Dose: Not Given Digoxin (Lanoxin) 0.125 mg PO DAILY [facility] Last Admin: 07/14/17 09:22 Dose: 0.125 mg Enoxaparin Sodium (Lovenox) 40 mg SC DAILY [facility] PRN Reason: Protocol Last Admin: 07/14/17 09:46 Dose: Not Given Levofloxacin/Dextrose (Levaquin 750mg) 750 mg in 150 mls @ 100 mls/hr IVPB DAILY [facility] Last Admin: 07/14/17 09:22 Dose: 100 mls/hr Vancomycin HCl 1 gm/ Sodium (Chloride) 250 mls @ 166.667 mls/hr IVPB Q24H [facility] PRN Reason: Protocol Last Admin: 07/13/17 16:42 Dose: 166.667 mls/hr Latanoprost (Xalatan Opht) 1 drop OD QAM [facility] Last Admin: 07/14/17 09:24 Dose: Not Given Magnesium Oxide (Mag-Ox) 400 mg PO BID [facility] Last Admin: 07/14/17 09:23 Dose: 400 mg Multivitamins/Minerals (Therapeutic-M Tab) 1 tab PO DAILY [facility] Last Admin: 07/14/17 09:23 Dose: 1 tab Sennosides (Senokot Tab) 17.2 mg PO HS [facility] Last Admin: 07/13/17 21:57 Dose: 17.2 mg Tramadol HCl (Ultram) 50 mg PO Q6 PRN PRN Reason: Pain, moderate (4-7) Last Admin: 07/13/17 18:26 Dose: 50 mg - Labs Labs: 07/13/17 10:22 07/13/17 10:22 PT 12.2 Seconds (9.8-13.1) 07/05/17 18:40 INR 1.1 (0.9-1.2) 07/05/17 18:40 APTT 29.6 Seconds (25.6-37.1) 07/05/17 18:40 - Respiratory Exam Respiratory Exam: Clear to Ausculation Bilateral - Cardiovascular Exam Cardiovascular Exam: REGULAR RHYTHM, +S1, +S2 - Additional Findings Additional findings: DIGITAL MEDIA DIRECTOR NSR Assessment and Plan - Assessment and Plan (Free Text) Assessment: S/P TOTAL RHR WITH SURGICAL SITE ABRASION CARDIOMYOPATHY HYPERLIPIDEMIA Plan: CONTINUE ASPIRIN, LOVENOX, DIGOXIN, ATORVASTATIN AND ANTIBIOTICS
--- NOTE | 2017-07-14 13:23 | CP.PCM.PCO ---
Assessment & Plan - Assessment and Plan (Free Text) Assessment: pt. sitting up in bed, awake alert, feels well today, mild c/o pain denies sob,cp, dizziness, fever or chills pt. cleared for discharge to [facility] today by , , and cont. Vanco 1gm iv daily and Levaquin 750 mg iv daily 1v x 1 week as per 's recommendations monitor cbc, labc, cont. PT/OT incentive spirometer/ pain control Above discussed with and patient who agrees with above plan will follow pt. in [facility]
--- NOTE | 2017-07-14 14:10 | CP.PCM.PN ---
Subjective - Date & Time of Evaluation Date of Evaluation: 07/14/17 Time of Evaluation: 09:00 - Subjective Subjective: afeb s/p debridement and washout all OR cultures neg wound c/s + KLebs cont rx vanco/ levaquin for 7 days Objective - Vital Signs/Intake and Output Vital Signs (last 24 hours): Temp Pulse Resp BP Pulse Ox 97.7 F 91 H 18 100/60 95 07/14/17 11:50 07/14/17 11:50 07/14/17 11:50 07/14/17 11:50 07/14/17 11:50 Intake and Output: 07/14/17 07/14/17 06:59 18:59 Intake Total 900 Balance 900 - Medications Medications: Current Medications Acetaminophen (Tylenol 325mg Tab) 650 mg PO Q6 PRN PRN Reason: Pain, Mild (1-3) Last Admin: 07/10/17 00:00 Dose: 650 mg Albuterol/Ipratropium (Duoneb 3 Mg/0.5 Mg (3 Ml) Ud) 3 ml INH RQID [facility] Last Admin: 07/14/17 11:19 Dose: Not Given Ascorbic Acid (Vitamin C 500 Mg Tab) 500 mg PO DAILY [facility] Last Admin: 07/14/17 09:23 Dose: 500 mg Aspirin (Ecotrin) 81 mg PO DAILY [facility] Last Admin: 07/14/17 09:22 Dose: 81 mg Atorvastatin Calcium (Lipitor) 20 mg PO QAM [facility] Last Admin: 07/14/17 09:22 Dose: 20 mg Collagenase (Santyl) 1 applic TOP DAILY [facility] Last Admin: 07/14/17 09:26 Dose: Not Given Digoxin (Lanoxin) 0.125 mg PO DAILY [facility] Last Admin: 07/14/17 09:22 Dose: 0.125 mg Enoxaparin Sodium (Lovenox) 40 mg SC DAILY [facility] PRN Reason: Protocol Last Admin: 07/14/17 09:46 Dose: Not Given Levofloxacin/Dextrose (Levaquin 750mg) 750 mg in 150 mls @ 100 mls/hr IVPB DAILY [facility] Last Admin: 07/14/17 09:22 Dose: 100 mls/hr Vancomycin HCl 1 gm/ Sodium (Chloride) 250 mls @ 166.667 mls/hr IVPB Q24H [facility] PRN Reason: Protocol Last Admin: 07/13/17 16:42 Dose: 166.667 mls/hr Latanoprost (Xalatan Opht) 1 drop OD QAM [facility] Last Admin: 07/14/17 09:24 Dose: Not Given Magnesium Oxide (Mag-Ox) 400 mg PO BID [facility] Last Admin: 07/14/17 09:23 Dose: 400 mg Multivitamins/Minerals (Therapeutic-M Tab) 1 tab PO DAILY [facility] Last Admin: 07/14/17 09:23 Dose: 1 tab Sennosides (Senokot Tab) 17.2 mg PO HS [facility] Last Admin: 07/13/17 21:57 Dose: 17.2 mg Tramadol HCl (Ultram) 50 mg PO Q6 PRN PRN Reason: Pain, moderate (4-7) Last Admin: 07/13/17 18:26 Dose: 50 mg - Labs Labs: 07/13/17 10:22 07/13/17 10:22 PT 12.2 Seconds (9.8-13.1) 07/05/17 18:40 INR 1.1 (0.9-1.2) 07/05/17 18:40 APTT 29.6 Seconds (25.6-37.1) 07/05/17 18:40 Assessment and Plan (1) Cellulitis Status: Acute
[2017-07-14 16:14] VITALS: BP 99/57; PULSE 87; RESP 20; TEMP 97.6; O2SAT 93
--- NOTE | 2017-07-14 17:56 | CP.PCM.PN ---
Subjective - Date & Time of Evaluation Date of Evaluation: 07/14/17 Time of Evaluation: 22:22 - Subjective Subjective: Above noted Objective - Vital Signs/Intake and Output Vital Signs (last 24 hours): Temp Pulse Resp BP Pulse Ox 97.6 F 87 20 99/57 L 93 L 07/14/17 16:14 07/14/17 16:14 07/14/17 16:14 07/14/17 16:14 07/14/17 16:14 Intake and Output: 07/14/17 07/14/17 06:59 18:59 Intake Total 900 Balance 900 - Medications Medications: Current Medications Acetaminophen (Tylenol 325mg Tab) 650 mg PO Q6 PRN PRN Reason: Pain, Mild (1-3) Last Admin: 07/10/17 00:00 Dose: 650 mg Albuterol/Ipratropium (Duoneb 3 Mg/0.5 Mg (3 Ml) Ud) 3 ml INH RQID [facility] Last Admin: 07/14/17 14:59 Dose: Not Given Ascorbic Acid (Vitamin C 500 Mg Tab) 500 mg PO DAILY [facility] Last Admin: 07/14/17 09:23 Dose: 500 mg Aspirin (Ecotrin) 81 mg PO DAILY [facility] Last Admin: 07/14/17 09:22 Dose: 81 mg Atorvastatin Calcium (Lipitor) 20 mg PO QAM [facility] Last Admin: 07/14/17 09:22 Dose: 20 mg Collagenase (Santyl) 1 applic TOP DAILY [facility] Last Admin: 07/14/17 09:26 Dose: Not Given Digoxin (Lanoxin) 0.125 mg PO DAILY [facility] Last Admin: 07/14/17 09:22 Dose: 0.125 mg Enoxaparin Sodium (Lovenox) 40 mg SC DAILY [facility] PRN Reason: Protocol Last Admin: 07/14/17 09:46 Dose: Not Given Levofloxacin/Dextrose (Levaquin 750mg) 750 mg in 150 mls @ 100 mls/hr IVPB DAILY [facility] Last Admin: 07/14/17 09:22 Dose: 100 mls/hr Vancomycin HCl 1 gm/ Sodium (Chloride) 250 mls @ 166.667 mls/hr IVPB Q24H [facility] PRN Reason: Protocol Last Admin: 07/14/17 16:15 Dose: Not Given Latanoprost (Xalatan Opht) 1 drop OD QAM [facility] Last Admin: 07/14/17 09:24 Dose: Not Given Magnesium Oxide (Mag-Ox) 400 mg PO BID [facility] Last Admin: 07/14/17 16:24 Dose: Not Given Multivitamins/Minerals (Therapeutic-M Tab) 1 tab PO DAILY [facility] Last Admin: 07/14/17 09:23 Dose: 1 tab Sennosides (Senokot Tab) 17.2 mg PO HS [facility] Last Admin: 07/13/17 21:57 Dose: 17.2 mg Tramadol HCl (Ultram) 50 mg PO Q6 PRN PRN Reason: Pain, moderate (4-7) Last Admin: 07/14/17 16:26 Dose: 50 mg - Labs Labs: 07/13/17 10:22 07/13/17 10:22 PT 12.2 Seconds (9.8-13.1) 07/05/17 18:40 INR 1.1 (0.9-1.2) 07/05/17 18:40 APTT 29.6 Seconds (25.6-37.1) 07/05/17 18:40 - Respiratory Exam Respiratory Exam: NORMAL BREATHING PATTERN - Cardiovascular Exam Cardiovascular Exam: REGULAR RHYTHM - GI/Abdominal Exam GI & Abdominal Exam: Normal Bowel Sounds Assessment and Plan - Assessment and Plan (Free Text) Assessment: S/P R Hip THR S/P wound I&D Ortho ID Plastic ABX Vanco Levaquin 7days COPD Hypoxia Chronic? Pulmonary consult Metabolic alkalosis 2 to above Nephrology consult appreciated Diamox d/c Anemia etiol? s/p THR repeat Hbg 9 S/P NSTEMI HTN cadiomyopathy Cardiology Adj Rxn refusing therapy?? Seen by Psych
--- NOTE | 2017-07-15 13:58 | OP ---
PROCEDURE DATE: 07/10/2017 PREOPERATIVE DIAGNOSIS: Superficial wound excoriation, rule out deep hip sepsis. POSTOPERATIVE DIAGNOSES: 1. Superficial wound excoriation with necrotic skin area. 2. No evidence for deep sepsis. There was no communication with the joint from the superficial layer. The fascia on the tensor fascia femoris was closed in the first procedure and is still intact. There is no communication with the joint. OPERATION PERFORMED: 1. Incision and drainage of right hip incision. 2. Excision of skin, subcutaneous tissue, and a portion of muscle. 3. Insertion of antibiotic-impregnated calcium sulfate granules, primary closure. SURGEON: Brien Gil MD. ARMATURE STRAIGHTENER: Lea Khalil, certified registered nursing assistant project manager. SPECIMENS REMOVED: Skin, subcutaneous tissue, and muscle. ESTIMATED BLOOD LOSS: 20 mL. BLOOD PRODUCTS: No blood products given. DRAINS: None. POSTOPERATIVE CONDITION: Stable. TIME IN THE ROOM: 1620 surgery time, incision time 1710. OPERATIVE INDICATIONS: Yanira Gomez is an 82-year-old woman who underwent a successful total hip replacement for a fracture. The patient had a benign postoperative course, was transferred to the TCU, and developed an area of skin necrosis and questionable superficial drainage. The patient was refractory to wound care and antibiotics. The patient presents for incision and drainage, possible hardware removal. Pros, cons, risks, and benefits were discussed at length. Possibility of mechanical failure, infection, thromboembolic disease, secondary or tertiary surgery was discussed. The patient can no longer withstand the discomfort and wished the surgery to be accomplished. DESCRIPTION OF PROCEDURE: After having obtained informed consent in the above fashion; after having identified side, site, and procedure, and a critical pause/time-out; after the satisfactory induction of the anesthetic, the patient identified as Yanira Gomez, was in the supine position on the operative table. The right lower extremity was prepped and draped in the usual fashion for lower extremity surgery. A bump was placed under the right buttock. This having been accomplished; after sterilely prepping and draping, after having identified side, site, and procedure, and a critical pause/time-out; after preparing the operative area, an incision was described in the right hip, extending two fingerbreadths proximal and two fingerbreadths distal to the incision. The skin incision was carried down through the skin and subcutaneous tissue. There was a bit of muscle involved and that was removed as well. The ellipse of skin was removed. Dissection was carried down through that. There was an area of excoriation and there was evidence of some superficial drainage. At this point in time, after having excised skin, subcutaneous tissue, and muscle, extensive irrigation and debridement of the right hip wound was accomplished with the Pulsavac and the antibiotic-impregnated fluid. Thorough irrigation and incision and drainage was accomplished. Stat Gram-stain was sent for number of white cells per high-power field and bacteria. Aerobic, anaerobic, AFP, and fungal cultures were obtained. It should be noted at this point in time that in the anterior approach of the hip replacement, the fascia on the tensor fascia femoris muscle was closed securely. There was no evidence of compromise of that fascia and there was no evidence of a fissure into the joint. This was clearly a superficial situation. The wound was thoroughly irrigated. At this point in time, calcium sulfate granules impregnated with antibiotic are placed in the wound to eliminate space and closures in layers with interrupted Vicryl, 0 Vicryl, 2-0 Vicryl, and nilton for skin. A compression dressing was applied. Biopsy specimens were sent. Brien Gil MD
== END 2017-07-14 18:45 | DRG 464 ==
LOC: H.ER 17:13 → H.ERHOLD 18:35 → H.MEDSURG1 20:46 → H.ICU/CCU 07-10 21:29 → H.TEL 07-12 16:35
PROVIDERS: ADMIT Family Medicine Geriatric Medicine; ATTEND Family Medicine Geriatric Medicine
PROC: 02HV33Z Insertion of Infusion Device into Superior Vena Cava, Percutaneous Approach (ICD-10-PCS; 2017-07-07)
PROC: B518ZZA Fluoroscopy of Superior Vena Cava, Guidance (ICD-10-PCS; 2017-07-07)
PROC: 3E04329 Introduction of Other Anti-infective into Central Vein, Percutaneous Approach (ICD-10-PCS; 2017-07-07)
PROC: 3E0T3BZ Introduction of Anesthetic Agent into Peripheral Nerves and Plexi, Percutaneous Approach (ICD-10-PCS; 2017-07-10)
PROC: 3E0T33Z Introduction of Anti-inflammatory into Peripheral Nerves and Plexi, Percutaneous Approach (ICD-10-PCS; 2017-07-10)
PROC: 30233N1 Transfusion of Nonautologous Red Blood Cells into Peripheral Vein, Percutaneous Approach (ICD-10-PCS; 2017-07-10)
PROC: 0KBN0ZZ Excision of Right Hip Muscle, Open Approach (ICD-10-PCS; principal; 2017-07-10 16:30)
PROC: 0JBC0ZZ Excision of Pelvic Region Subcutaneous Tissue and Fascia, Open Approach (ICD-10-PCS; 2017-07-10 16:30)
DX: T84.51XA Infection and inflammatory reaction due to internal right hip prosthesis, initial encounter (principal); L03.115 Cellulitis of right lower limb; T81.30XA Disruption of wound, unspecified, initial encounter; E87.4 Mixed disorder of acid-base balance; L89.312 Pressure ulcer of right buttock, stage 2; I42.9 Cardiomyopathy, unspecified; I11.0 Hypertensive heart disease with heart failure; E87.1 Hypo-osmolality and hyponatremia; I50.22 Chronic systolic (congestive) heart failure; E83.42 Hypomagnesemia; B96.1 Klebsiella pneumoniae [K. pneumoniae] as the cause of diseases classified elsewhere; E86.0 Dehydration; Y83.8 Other surgical procedures as the cause of abnormal reaction of the patient, or of later complication, without mention of misadventure at the time of the procedure; Z96.641 Presence of right artificial hip joint; E87.6 Hypokalemia; R09.02 Hypoxemia; J43.9 Emphysema, unspecified; D64.9 Anemia, unspecified; R32 Unspecified urinary incontinence; E78.5 Hyperlipidemia, unspecified; I25.2 Old myocardial infarction; H35.30 Unspecified macular degeneration; H40.9 Unspecified glaucoma; Z74.01 Bed confinement status; Z88.0 Allergy status to penicillin; Z87.81 Personal history of (healed) traumatic fracture; Z91.81 History of falling; Z86.718 Personal history of other venous thrombosis and embolism; Z87.891 Personal history of nicotine dependence; Z79.82 Long term (current) use of aspirin; Y92.9 Unspecified place or not applicable